=== PATIENT | female | born 1945 | race Caucasian/White ===

== ENCOUNTER → 2018-05-13 07:24 | Outpatient (CLI) | payer MEDICARE, BC, SELFPAY ==
[2018-05-13 08:55] LABS: Alanine Aminotransferase 23 IU/L (9-52); Albumin 4.4 g/dL (3.5-5.0); Albumin Globulin Ratio 1.5 (1.0-2.8); Alkaline Phosphatase 63 U/L (38-126); Aspartate Aminotransferase 21 IU/L (14-36); BUN Creatinine Ratio 33.3 (6-22); Bilirubin Total 0.6 mg/dL (0.2-1.3); Blood Urea Nitrogen 40 mg/dL (7-17); Carbon Dioxide 26 mmol/L (22-32); Chloride 102 mmol/L (98-107); Cholesterol 229 mg/dL (140-199); Estimated Glomerular Filt Rate 44.3 mL/min (>60); Globulin 2.9 g/dL (1.7-4.1); Glucose 101 mg/dL (80-110); HDL Cholesterol 41 mg/dL (40-60); HEMOLYSIS < 15 (0-50); LDL Cholesterol Calculated 123 mg/dL (<100); Potassium 4.7 mmol/L (3.4-5.1); Sodium 141 mmol/L (137-145); Total Protein 7.3 g/dL (6.3-8.2); Triglycerides 325 mg/dL (35-150)
[2018-05-13 08:58] LABS: Hemoglobin A1C% w Est Avg Glu 5.8 % (4.0-6.0)
== END ==
PROVIDERS: PCP Family Medicine; Visit Provider Family Medicine
DX: I10 Essential (primary) hypertension (principal); R73.03 Prediabetes; E66.9 Obesity, unspecified; E78.2 Mixed hyperlipidemia
CPT/HCPCS: 36415; 80053; 80061; 83036

== ENCOUNTER → 2018-06-22 13:31 | Outpatient (CLI) | payer MEDICARE, BC, SELFPAY ==
[2018-06-22 14:36] LABS: BUN Creatinine Ratio 30.9 (6-22); Blood Urea Nitrogen 34 mg/dL (7-17); Calcium 9.8 mg/dL (8.4-10.2); Carbon Dioxide 29 mmol/L (22-32); Chloride 103 mmol/L (98-107); Glucose 108 mg/dL (80-110); HEMOLYSIS < 15 (0-50); Sodium 142 mmol/L (137-145)
[2018-06-22 15:06] LABS: TSH w/ Reflex to FT4 0.25 uIU/mL (0.47-4.68)
[2018-06-22 15:58] LABS: Free T4, Direct Thyroxine 1.36 ng/dL (0.78-2.19)
== END ==
PROVIDERS: PCP Family Medicine; Visit Provider Family Medicine
DX: E03.9 Hypothyroidism, unspecified (principal); I10 Essential (primary) hypertension; N18.9 Chronic kidney disease, unspecified
CPT/HCPCS: 36415; 80048; 84439; 84443

== ENCOUNTER 2018-06-24 10:27 | Emergency (ER) | payer MEDICARE, BC, SELFPAY ==
[2018-06-24 10:25] VITALS: BP 153/81; PULSE 76; RESP 16; TEMP 36.8; O2SAT 97
--- NOTE | 2018-06-24 10:34 | ED.SYNCOPE ---
HPI - Syncope General Chief Complaint: Fall Stated Complaint: GLF Time Seen by Provider: 06/24/18 10:29 Source: patient Mode of arrival: EMS Limitations: no limitations History of Present Illness HPI narrative: Patient is a 73-year-old female brought in by EMS after having an episode this morning where she states she was standing at her kitchen sink preparing breakfast. She states she had a sudden onset of lightheadedness. No vertigo component. Denies any other symptoms that time to include chest pain, palpitations, shortness of breath, headache or vision changes. No numbness and tingling in her extremities. She states she has had symptoms similar to this in the past. When the event happened this morning she states that she tried to hold onto things to get over to sit down in a chair which she normally does. She states that when these episodes have happened in the past after she sits down the resolve within a couple minutes with. She states that this morning was different because as she was trying to get into the chair she did fall and hit the left side of her face. Did not have any loss of consciousness. When EMS arrived she states that when she was still she did not have any symptoms however when they tried to stand her she did have the lightheadedness return. She states in character this feels just like her prior episodes however she has never fallen in the past and she feels like the symptoms have lasted longer. Related Data Home Medications Medication Instructions Recorded Confirmed aspirin 81 mg PO Q OTHER DAY 06/24/18 06/24/18 hydrocodone-acetaminophen 1 tab PO TID 06/24/18 06/24/18 ibuprofen 600 mg PO Q6H PRN 06/24/18 06/24/18 levothyroxine [Synthroid] 1 tab PO DAILY 06/24/18 06/24/18 Previous Rx's Medication Instructions Recorded doxycycline hyclate 50 mg PO QDAY #90 cap 05/18/17 atenolol 50 mg PO QDAY #90 tab 07/27/17 lisinopril-hydrochlorothiazide 2 tab PO QDAY #180 tab 07/27/17 potassium chloride [Klor-Con 8] 8 meq PO BIDCC #180 tab 07/27/17 estradiol-norethindrone acet 1 tab PO Q DAY #90 tab 10/20/17 [Activella] clobetasol [Temovate] 1 charles TOPICAL HS #30 gm 11/17/17 amlodipine 5 mg tablet 5 mg PO QDAY #90 tab 04/26/18 tramadol 50 mg tablet 100 mg PO Q6HP PRN #720 tab 05/20/18 Allergies Allergy/AdvReac Type Severity Reaction Status Date / Time Iodine and Iodide Containing Allergy Severe ANAPHYLAXIS Unverified 05/20/18 14:28 Produc [IODINE AND IODIDE CONTAINING PRODUC] adhesive [ADHESIVE] Allergy Mild LOCAL RASH Unverified 05/20/18 14:28 enalapril [ENALAPRIL] Allergy Mild WHOLE BODY Unverified 05/20/18 14:28 EDEMA Review of Systems Constitutional Denies fatigue, Denies fever(s), Denies frequent falls, Denies headache(s) and Denies malaise Eyes Denies blurry vision, Denies diplopia and Denies loss of vision ENT Ears, Nose, Mouth, and Throat: Denies vertigo, Reports dizziness, Reports facial pain (Left cheek), Denies headache(s), Denies epistaxis, Denies mouth lesions, Denies mouth pain, Denies nasal trauma, Denies neck pain, Reports disequilibrium and Denies throat swelling Cardiovascular Denies chest pain, Denies syncope, Denies rapid heart rate, Denies pedal edema, Denies edema, Denies irregular heart rhythm, Denies palpitations and Denies dyspnea Respiratory Denies cough, Denies dyspnea and Denies wheezing Gastrointestinal Gastrointestinal: Denies abdominal pain, Denies constipation, Denies diarrhea, Denies nausea and Denies vomiting Genitourinary Denies dysuria Musculoskeletal Denies neck pain, Denies numbness and Denies tingling Comments: Left knee and left hip pain Integumentary/Breasts Denies lesions and Denies rash Neurologic Denies abnormal speech, Denies behavioral changes, Denies burning sensations, Denies confusion, Denies vertigo, Reports dizziness, Denies syncope, Denies frequent falls, Denies headache(s), Denies focal weakness, Denies loss of vision, Denies memory loss, Denies numbness, Denies convulsions, Denies seizure-like activity, Denies tingling, Denies paresthesias and Reports disequilibrium Psychiatric Denies behavioral changes, Denies confusion and Denies memory loss Endocrine Denies fatigue and Denies palpitations Hematologic/Lymphatic Denies easy bleeding and Denies easy bruising Allergic/Immunologic Denies throat swelling and Denies wheezing COUNTS INCLUDE 234 BEDS AT THE [facility] Medical History Arthritis (Chronic) Cataract (Chronic) GERD (gastroesophageal reflux disease) (Chronic) Hemorrhoids (Chronic 2014) Hyperlipidemia (Chronic) Hypertension (Chronic 1989) Hypothyroidism (Chronic 2012) Osteoarthritis (Chronic) Prediabetes (Chronic) Rosacea (Chronic 2000) Chicken pox (Resolved) History of nephrolithiasis (Resolved) Measles (Resolved) Mumps (Resolved) Ovarian cyst, bilateral (Resolved 12/2013) Surgical History Anesthesia (Resolved) History of bilateral salpingo-oophorectomy (BSO) (Resolved 2013) History of hip replacement (Resolved 2013) History of knee replacement (Resolved 2011) Status post dilation and curettage (Resolved 1983) Status post ovarian cystectomy (Resolved 1967) Family History Father Diabetes mellitus Heart disease Grandfather Stroke Mother Cancer Stroke Colon cancer Sister Age: 59 Congenital heart disease Brother Prostate cancer Daughter SUKH positive Daughter Taqueria's thyroiditis Grandmother No problems noted. Grandmother No problems noted. Son Schizophrenia Social History Smoking Status: Never smoker Exam Initial Vital Signs Initial Vital Signs: Vital Signs Temperature 98.3 F 06/24/18 10:25 Pulse Rate 76 06/24/18 10:25 Respiratory Rate 16 06/24/18 10:25 Blood Pressure 153/81 H 06/24/18 10:25 Pulse Oximetry 97 06/24/18 10:25 Const General: cooperative, healthy appearing, comfortable, well developed, well groomed and No acute distress Orientation: alert, awake and oriented x3 HENMT Head: normal to inspection, normocephalic and atraumatic Nose: external nose normal Face and sinus: normal facial exam, sinuses tender, face symmetric, no abrasions, no crepitus, no erythema and no edema Mouth: oral mucosae normal and lip normal Teeth and gingiva: dentition normal Resp Effort & Inspection: normal respiratory effort and able to speak in complete sentences Auscultation: clear to auscultation bilaterally Cardio Rate: regular rate Rhythm: regular rhythm Heart Sounds: no murmurs Pulses: radial pulses present GI Inspection: normal to inspection, abdominal wall ecchymosis and non-distended Palpation: No soft and No tender Skin Lesions: no lesions Rashes: no rashes Neuro General: alert, awake and oriented x3 Cranial Nerves: CN's II-XI intact bilaterally Cognition: normal cognition Speech: speech normal Motor: muscle tone normal throughout Sensory Exam: no sensory deficits noted Extrem Other: Full range of motion of left hip which is baseline for her. Full range of motion at baseline of her left knee. No other extremity findings Psych Appearance: grossly normal and well kempt Course Orders Ordered: ED Orders 06/24/18 10:15 Complete Blood Count AUTO DIFF Stat Comprehensive Metabolic Panel Stat Thyroid Stimulating Hormone Stat Troponin I Stat 06/24/18 10:31 EKG-12 Lead Stat 06/24/18 10:52 Partial Thromboplastin Time Stat Prothrombin Time INR Stat Discontinued Medications Sodium Chloride (Normal Saline 0.9%) 1,000 mls @ 1,000 mls/hr IV BOLUS ONE Stop: 06/24/18 11:28 Last Admin: 06/24/18 10:53 Dose: 1,000 mls/hr Vital Signs - 8 hr 06/24/18 10:25 Temperature 98.3 F Pulse Rate 76 Respiratory Rate 16 Blood Pressure 153/81 H Pulse Oximetry 97 MDM - Syncope Lab Data Attestation: I reviewed the patient's lab results. Result diagrams: 06/24/18 10:15 06/24/18 10:15 Lab Results 06/24/18 06/24/18 06/24/18 Range/Units 10:15 10:15 10:15 WBC 5.2 (4.5-11.0) X10^3/uL RBC 4.46 (4.0-5.2) X10^6/uL Hgb 13.9 (12.0-16.0) g/dL Hct 41.0 (36-46) % MCV 92.0 (80-100) fL MCH 31.1 (26-34) PG MCHC 33.8 (30-36) % RDW 13.7 (11.6-14.8) % Plt Count 270 (150-400) X10^3/uL Neut % (Auto) 46.1 L (50-75) % Lymph % (Auto) 38.2 (25-40) % Milam % (Auto) 9.3 (3-14) % Eos % (Auto) 5.4 H (2-4) % Baso % (Auto) 1.0 (0-2) % Neut # (Auto) 2400 L (4631-5672) /uL PT (10.1-12.7) SECONDS INR (0.9-1.3) APTT (26.4-36.2) SECONDS Sodium 142 (137-145) mmol/L Potassium 4.0 (3.4-5.1) mmol/L Chloride 103 (98-107) mmol/L Carbon Dioxide 23 (22-32) mmol/L BUN 31 H (7-17) mg/dL Creatinine 0.90 (0.52-1.04) mg/dL Estimated GFR > 60.0 (>60) mL/min BUN/Creatinine Ratio 34.4 H (6-22) Glucose 159 H (80-110) mg/dL Calcium 9.5 (8.4-10.2) mg/dL Total Bilirubin 0.8 (0.2-1.3) mg/dL AST 32 (14-36) IU/L ALT 25 (9-52) IU/L Alkaline Phosphatase 71 (38-126) U/L Troponin I < 0.012 (0.01-0.034) ng/mL Total Protein 7.9 (6.3-8.2) g/dL Albumin 4.7 (3.5-5.0) g/dL Globulin 3.2 (1.7-4.1) g/dL Albumin/Globulin Ratio 1.5 (1.0-2.8) TSH 2.68 (0.47-4.68) uIU/mL 06/24/18 Range/Units 10:52 WBC (4.5-11.0) X10^3/uL RBC (4.0-5.2) X10^6/uL Hgb (12.0-16.0) g/dL Hct (36-46) % MCV (80-100) fL MCH (26-34) PG MCHC (30-36) % RDW (11.6-14.8) % Plt Count (150-400) X10^3/uL Neut % (Auto) (50-75) % Lymph % (Auto) (25-40) % Milam % (Auto) (3-14) % Eos % (Auto) (2-4) % Baso % (Auto) (0-2) % Neut # (Auto) (8264-1469) /uL PT 10.6 (10.1-12.7) SECONDS INR 1.0 (0.9-1.3) APTT 24 L (26.4-36.2) SECONDS Sodium (137-145) mmol/L Potassium (3.4-5.1) mmol/L Chloride (98-107) mmol/L Carbon Dioxide (22-32) mmol/L BUN (7-17) mg/dL Creatinine (0.52-1.04) mg/dL Estimated GFR (>60) mL/min BUN/Creatinine Ratio (6-22) Glucose (80-110) mg/dL Calcium (8.4-10.2) mg/dL Total Bilirubin (0.2-1.3) mg/dL AST (14-36) IU/L ALT (9-52) IU/L Alkaline Phosphatase (38-126) U/L Troponin I (0.01-0.034) ng/mL Total Protein (6.3-8.2) g/dL Albumin (3.5-5.0) g/dL Globulin (1.7-4.1) g/dL Albumin/Globulin Ratio (1.0-2.8) TSH (0.47-4.68) uIU/mL ECG Data Attestation: I personally reviewed and interpreted this ECG as follows: Prior ECG tracings: not available for review Interpretation: Sinus rhythm Ventricular rate is 67 Normal axis Normal intervals Normal QRS No ST T wave changes Normal QTC MDM Narrative Medical decision making narrative: Patient's labs today are unremarkable. She was able to ambulate to the restroom here in the ER without assistance. She states she feels much better than when she did this morning. She states she has had these symptoms off and on for the past 2 years. Her history and physical exam was not consistent with a CVA or TIA. Have low suspicion for facial bone fracture or left hip her left knee fracture. Will hold on x-rays for now. Patient has had an MRI within the past year for another issue which she states was unremarkable. She has had a Holter monitor in the past but this was 10 years ago prior to the onset of the symptoms 1-2 years ago. I do have some suspicion for potential cardiac etiology however other etiologies such as vasovagal is also possibility. She states that normally in the morning when she gets up she sits for 30 min prior to doing anything however this morning she only sat for approximately 10 min when she went into the kitchen and had the symptoms. She states that she sits for 30 min to give her ?medicines a chance to work ?feel that further workup here in the emergency department will not change any disposition. Considered admitting her to the hospital secondary to the lack of definitive etiology however patient does not want to be admitted and I do not feel that this is 100% necessary currently. She was instructed to contact her primary doctor's office on Wednesday for follow-up. She was given return precautions. She expressed understanding and agreement plan. Discharge Plan Departure Patient Disposition: Home Clinical Impression: Lightheadedness Instructions: How to Prevent Falls Activity Restrictions/Additional Instructions: No definitive etiology of your symptoms was found today. Highly recommend that you contact your primary doctor's office on Wednesday for a follow-up and to discuss further workup to include possible MRI or Holter monitor. Continue all of your medications as directed. Return to the emergency department for any new or worsening symptoms Prescriptions: No Action doxycycline hyclate 50 MG capsule 50 mg PO QDAY Qty: 90 RF: 3 lisinopril-hydrochlorothiazide 20 MG/12.5 MG tablet 2 tab PO QDAY Qty: 180 RF: 3 potassium chloride [Klor-Con 8] 8 MEQ tablet extended release 8 meq PO BIDCC Qty: 180 RF: 3 atenolol 50 MG tablet 50 mg PO QDAY Qty: 90 RF: 3 estradiol-norethindrone acet [Activella] 0.5 MG/0.1 MG tablet 1 tab PO Q DAY Qty: 90 RF: 3 clobetasol [Temovate] 0.05 % cream 1 charles Topical HS Qty: 30 RF: 0 amlodipine [Norvasc] 5 mg tablet 5 mg PO QDAY Qty: 90 RF: 3 tramadol 50 mg tablet 100 mg PO Q6HP PRN (Reason: pain) Qty: 720 RF: 3 aspirin 81 mg Tablet,Delayed Release (Dr/Ec) 81 mg PO Q OTHER DAY RF: 0 levothyroxine [Synthroid] 88 mcg tablet 1 tab PO DAILY RF: 0 hydrocodone-acetaminophen 5-325 mg Tablet 1 tab PO TID RF: 0 ibuprofen 600 mg Tablet 600 mg PO Q6H PRN (Reason: Pain, Moderate) RF: 0
[2018-06-24 10:38] LABS: Add Manual Diff / Slide Review NO; Eosinophils Percent Auto 5.4 % (2-4); Hemoglobin 13.9 g/dL (12.0-16.0); Lymphocytes Percent Auto 38.2 % (25-40); Mean Corpuscular HGB Conc 33.8 % (30-36); Mean Corpuscular Hemoglobin 31.1 PG (26-34); Monocytes Percent Auto 9.3 % (3-14); Neutrophils Absolute Auto 2400 /uL (3000-5900); Neutrophils Percent Auto 46.1 % (50-75); Platelet Count 270 X10^3/uL (150-400); Red Blood Cell Count 4.46 X10^6/uL (4.0-5.2); Red Cell Distribution Width 13.7 % (11.6-14.8); White Blood Cell Count 5.2 X10^3/uL (4.5-11.0)
[2018-06-24 10:51] LABS: Alanine Aminotransferase 25 IU/L (9-52); Albumin 4.7 g/dL (3.5-5.0); Albumin Globulin Ratio 1.5 (1.0-2.8); Alkaline Phosphatase 71 U/L (38-126); Aspartate Aminotransferase 32 IU/L (14-36); BUN Creatinine Ratio 34.4 (6-22); Bilirubin Total 0.8 mg/dL (0.2-1.3); Blood Urea Nitrogen 31 mg/dL (7-17); Calcium 9.5 mg/dL (8.4-10.2); Carbon Dioxide 23 mmol/L (22-32); Chloride 103 mmol/L (98-107); Estimated Glomerular Filt Rate > 60.0 mL/min (>60); Globulin 3.2 g/dL (1.7-4.1); Glucose 159 mg/dL (80-110); HEMOLYSIS 42 (0-50); Sodium 142 mmol/L (137-145); Total Protein 7.9 g/dL (6.3-8.2)
[2018-06-24] MEDS: SODIUM CHLORIDE 0.9% 1,000 ML 1000 ML IV (10:53)
[2018-06-24 11:05] LABS: Troponin I < 0.012 ng/mL (0.01-0.034)
[2018-06-24 11:06] LABS: Prothrombin Time 10.6 SECONDS (10.1-12.7)
[2018-06-24 11:09] LABS: PTT Partial Thromboplastin Tim 24 SECONDS (26.4-36.2)
[2018-06-24 11:28] LABS: Thyroid Stimulating Hormone 2.68 uIU/mL (0.47-4.68)
[2018-06-24 12:57] VITALS: BP 141/81; PULSE 75; RESP 18; O2SAT 96
== END 2018-06-24 12:54 | disposition home or self-care (01) ==
PROVIDERS: Emergency Provider Emergency Medicine; Family Provider Family Medicine; PCP Family Medicine
DX: R55 Syncope and collapse (principal); W19.XXXA Unspecified fall, initial encounter
CPT/HCPCS: 36415; 80053; 84443; 84484; 85025; 85610; 85730; 93005; 93010; 99283; 99284

== ENCOUNTER → 2018-08-04 11:33 | Outpatient (CLI) | payer MEDICARE, BC, SELFPAY | PROVIDERS: Family Provider Family Medicine; PCP Family Medicine; Visit Provider Family Medicine | DX: R20.2 Paresthesia of skin (principal) | CPT/HCPCS: 95886; 95908 ==

== ENCOUNTER → 2018-08-11 15:49 | Outpatient (CLI) | payer MEDICARE, BC, SELFPAY ==
[2018-08-11 17:18] LABS: Blood Urea Nitrogen 41 mg/dL (7-17); Calcium 9.7 mg/dL (8.4-10.2); Carbon Dioxide 28 mmol/L (22-32); Chloride 103 mmol/L (98-107); Estimated Glomerular Filt Rate 54.7 mL/min (>60); Glucose 135 mg/dL (80-110); HEMOLYSIS < 15 (0-50); Potassium 4.9 mmol/L (3.4-5.1); Sodium 143 mmol/L (137-145)
== END ==
PROVIDERS: Family Provider Family Medicine; PCP Family Medicine; Visit Provider Family Medicine
DX: I10 Essential (primary) hypertension (principal)
CPT/HCPCS: 36415; 80048

== ENCOUNTER → 2018-10-04 11:05 | Outpatient (CLI) | payer MEDICARE, BC, SELFPAY ==
[2018-10-04 13:03] LABS: Blood Urea Nitrogen 29 mg/dL (7-17); Calcium 9.6 mg/dL (8.4-10.2); Carbon Dioxide 24 mmol/L (22-32); Chloride 102 mmol/L (98-107); Estimated Glomerular Filt Rate 54.7 mL/min (>60); Glucose 119 mg/dL (80-110); HEMOLYSIS < 15 (0-50); Potassium 4.6 mmol/L (3.4-5.1); Sodium 142 mmol/L (137-145)
[2018-10-04 13:52] LABS: Vitamin B12 665 pg/mL (239-931)
[2018-10-05 13:45] LABS: Homocysteine 9.2 umol/L (< 10.4)
[2018-10-08 15:19] LABS: Methylmalonic Acid 217 nmol/L (87-318)
== END ==
PROVIDERS: Family Provider Family Medicine; PCP Family Medicine; Visit Provider Family Medicine
DX: E66.9 Obesity, unspecified (principal); M54.5 Low back pain; R20.2 Paresthesia of skin; N18.9 Chronic kidney disease, unspecified
CPT/HCPCS: 36415; 80048; 82607; 83090; 83921

== ENCOUNTER → 2018-11-01 14:10 | Outpatient (CLI) | payer MEDICARE, BC, SELFPAY ==
[2018-11-01 16:01] LABS: Blood Urea Nitrogen 40 mg/dL (7-17); Calcium 9.6 mg/dL (8.4-10.2); Carbon Dioxide 28 mmol/L (22-32); Chloride 101 mmol/L (98-107); Estimated Glomerular Filt Rate 54.7 mL/min (>60); Glucose 90 mg/dL (80-110); HEMOLYSIS 19 (0-50); Potassium 4.7 mmol/L (3.4-5.1); Sodium 140 mmol/L (137-145)
== END ==
PROVIDERS: Family Provider Family Medicine; PCP Family Medicine; Visit Provider Family Medicine
DX: I10 Essential (primary) hypertension (principal)
CPT/HCPCS: 36415; 80048

== ENCOUNTER → 2018-12-06 15:00 | Outpatient (CLI) | payer MEDICARE, BC, SELFPAY ==
[2018-12-06 15:33] LABS: Blood Urea Nitrogen 36 mg/dL (7-17); Carbon Dioxide 26 mmol/L (22-32); Chloride 101 mmol/L (98-107); Estimated Glomerular Filt Rate 54.7 mL/min (>60); Glucose 93 mg/dL (80-110); HEMOLYSIS < 15 (0-50); Potassium 4.8 mmol/L (3.4-5.1); Sodium 140 mmol/L (137-145)
[2018-12-06 15:46] LABS: Add Manual Diff / Slide Review NO; Basophils Absolute Auto 0 /uL (0-100); Basophils Percent Auto 0.6 % (0-2); Eosinophils Absolute Auto 300 /uL (0-450); Eosinophils Percent Auto 5.6 % (2-4); Hematocrit 41.4 % (36-46); Hemoglobin 13.6 g/dL (12.0-16.0); Lymphocytes Absolute Auto 1700 /uL (1100-4500); Lymphocytes Percent Auto 29.6 % (25-40); Mean Corpuscular HGB Conc 32.9 % (30-36); Mean Corpuscular Hemoglobin 30.7 PG (26-34); Mean Corpuscular Volume 93.3 fL (80-100); Monocytes Absolute Auto 500 /uL (0-900); Monocytes Percent Auto 9.4 % (3-14); Neutrophils Absolute Auto 3100 /uL (1500-7000); Neutrophils Percent Auto 54.8 % (50-75); Platelet Count 295 X10^3/uL (150-400); Red Blood Cell Count 4.44 X10^6/uL (4.0-5.2); Red Cell Distribution Width 14.4 % (11.6-14.8); White Blood Cell Count 5.6 X10^3/uL (4.5-11.0)
== END ==
PROVIDERS: Family Provider Orthopaedic Surgery; PCP Family Medicine; Visit Provider Family Medicine
DX: M16.10 Unilateral primary osteoarthritis, unspecified hip (principal); Z01.818 Encounter for other preprocedural examination; Z01.812 Encounter for preprocedural laboratory examination; N20.0 Calculus of kidney; I10 Essential (primary) hypertension; R73.03 Prediabetes
CPT/HCPCS: 36415; 80048; 85025; 93005

== ENCOUNTER → 2019-01-28 10:32 | Outpatient (CLI) | payer MEDICARE, BC, SELFPAY ==
--- NOTE | 2019-01-28 | DI.MG.S_ITS ---
BILATERAL DIGITAL SCREENING MAMMOGRAM 3D/2D WITH CAD: 01/28/2019 CLINICAL: Routine screening. Comparison is made to exams dated: 01/27/2018 mammogram, 12/21/2016 mammogram, and 12/20/2015 mammogram - Merged [facility]. The tissue of both breasts is heterogeneously dense. This may lower the sensitivity of mammography. Current study was also evaluated with a Computer Aided Detection (CAD) system. There are benign calcifications in both breasts. No significant masses, calcifications, or other findings are seen in either breast. There has been no significant interval change. IMPRESSION: There is no mammographic evidence of malignancy. A 1 year screening mammogram is recommended. This exam was interpreted at Station ID: [id number]. NOTE: For mammograms, a report in lay terms will be sent to the patient. Approximately 15% of breast malignancies will not be visualized mammographically. In the management of a palpable breast mass, a negative mammogram must not discourage biopsy of a clinically suspicious lesion. Electronically Signed By: Bill torres/cesar:01/30/2019 08:48:21 copy to: CITLALY BUTLER letter sent: Normal Exam ACR BI-RADS Category 2: Benign Finding(s) 3342F
== END ==
PROVIDERS: Family Provider Orthopaedic Surgery; PCP Family Medicine; Visit Provider Family Medicine
DX: Z12.31 Encounter for screening mammogram for malignant neoplasm of breast (principal)
CPT/HCPCS: 77063; 77067

== ENCOUNTER 2019-01-30 09:51 | Inpatient (IN) | payer MEDICARE, BC, SELFPAY ==
[2019-01-18 13:59] VITALS: BMI 35.6
[2019-01-30] VITALS (13 sets, daily range): BP systolic 105–148; BP diastolic 54–90; PULSE 54–84; RESP 10–20; TEMP 36.4–37.2; O2SAT 93–100; BMI 34.9
--- NOTE | 2019-01-30 06:00 | DI.RAD.S_ITS ---
PROCEDURE: XR PELVIS 1-2V INDICATIONS: POST OPERATIVE TOTAL RIGHT HIP TECHNIQUE: 1 view of the lower pelvis acquired. COMPARISON: [facility] [place], CR, XR PELVIS WITH LATERAL HIP RIGHT, 10/26/2018, 13:51. FINDINGS: Bones: Patient is status post right hip arthroplasty, with hardware components in expected positions. The hip joint appears congruent. The visualized bony structures appear intact. Prominent degenerative changes of the pubis symphysis are present. Postoperative changes of the left hip are compatible with prior left hip arthroplasty. Soft tissues: Overlying postoperative changes are noted. No suspicious soft tissue densities. There is a soft tissue air and edema are present overlying the right hip region. No unexpected radiopaque foreign bodies are appreciated. Skin donna are seen overlying the lateral margin of the right hip region. IMPRESSION: Expected post surgical changes related to a right hip arthroplasty. Dictated by: Eric Cox M.D. on 01/30/2019 at 13:23 Approved by: Eric Cox M.D. on 01/30/2019 at 13:24
[2019-01-30] MEDS: LACTATED RINGERS 1,000 ML 42 ML IV ×2 (10:20→13:14)
[2019-01-30] MEDS: ACETAMINOPHEN 325 MG TABLET 975 MG PO (10:38)
[2019-01-30] MEDS: PREGABALIN 75 MG CAPSULE PO (10:39)
[2019-01-30] MEDS: CELECOXIB 200 MG CAPSULE PO (10:39)
--- NOTE | 2019-01-30 11:40 | PM.PREOP ---
Pre-operative Note Interval Note History & Physical reviewed/Exam performed by Physician: Yes Changes to H&P: No
[2019-01-30] MEDS: CEFAZOLIN 2 GM/100 ML FROZ.PIGGY IV ×2 (12:10→19:07)
[2019-01-30] MEDS: TRANEXAMIC ACID 1,000 MG VIAL 2000 MG INJ ×2 (12:30→13:34)
--- NOTE | 2019-01-30 12:48 | SUR.OPER ---
Lateral on padded OR bed. Gel axillary roll. Arms secured on padded armboard with pillow supporting top arm. Padded hip positioner braces x4 - anterior and posterior chest and pelvis. Additional gel pad used anterior pelvis. Gel pad under bottom leg from knee to foot and secured with tape over sheet.
[2019-01-30] MEDS: MORPHINE 4 MG/ML INJ IM (12:57)
[2019-01-30] MEDS: KETOROLAC 30 MG/ML VIAL IM (12:57)
[2019-01-30] MEDS: ROPIVACAINE 0.5% PF 5 MG/ML 20ML AMP 10 ML INJ (13:00)
--- NOTE | 2019-01-30 13:54 | PM.OP.1 ---
Operative Date/Time/Diagnoses Date of procedure: 01/30/19 Time of procedure: 13:54 Pre-op diagnosis: Right hip degenerative joint disease Post-op diagnosis: same Procedure & Clinicians Procedure: Right total hip arthroplasty (CPT code 51832 with diver assistant) Same procedure as scheduled: Yes Indications: Patient is an 74-year-old female with severe right hip DJD. The patient has pain with activities and at rest, limited ambulation and activity tolerance, difficulties with ADLs, and failure of conservative treatment. We have discussed the nature of condition, treatment options, risks and benefits, and patient elects to proceed with total hip arthroplasty and gives informed consent. Surgeon: Kian Malcolm Hollow Ware Maker: Scotty Montenegro Anesthesia Type: General and Spinal Operative Notes Closure Type: primary Specimen(s): none sent Prosthetic devices, grafts, tissues, transplants, or devices: Acetabulum: Valadez and Nephew R3 acetabular component size 50 mm Femoral component: Valadez [employer] Nephew Anthology stem size 3 with standard offset Femoral head: 32 mm + 0 cobalt chrome Estimated Blood Loss (mL): 100 Blood products transfused: none Procedure in detail: After satisfaction induction of anesthetic, and administration of IV antibiotics, the patient was positioned in the lateral decubitus position with all bony prominences well padded and pelvic position secured using a hip dental laboratory manager positioning device. Right hip and lower extremity prepped and draped in the usual sterile fashion, 1st dose of intravenous tranexamic acid was administered, then a longitudinal incision was created centered over the greater trochanter and carried sharply through the skin and subcutaneous tissues down to the fascia chuck which was divided longitudinally and retracted with a Charnley retractor. External rotators visualize, cut, tagged, and retracted posteriorly, then the capsule was cut in a T-type fashion with the corners tagged and retracted. Hip was dislocated and femoral neck cut made according to preoperative templating. Acetabular retractors then placed, and the acetabular labrum and osteophytes were excised. The acetabulum was then sequentially reamed to 49 mm with an excellent circumferential ream and fit with the trial. The trial component was removed and a permanent size 50 mm Valadez and Nephew R3 acetabular component was selected, positioned, and impacted with satisfactory position and fixation achieved. Permanent liner was then inserted with the elevated lip directed posteriorly. Soft tissue then removed off the lateral femoral neck in the lateral neck was entered using a box osteotome. T-handled reamers placed down the canal followed by sequential broaching to 3 with the final broach left in place for trial reduction which demonstrated excellent leg length, range of motion, and stability characteristics with a 32 mm +0 trial ball. The trial and broach were removed, and a permanent size 3 Valadez and Nephew Anthology stem was selected and inserted with excellent position and fixation achieved. Another trial reduction yielded the above characteristics so the trial ball was exchanged for a permanent 32 mm +0 cobalt chrome ball. The hip was irrigated and reduced and excellent leg length range of motion and stability characteristics were achieved and maintained. Periarticular tissues were infiltrated with ropivacaine, morphine, and Toradol. The hip was copiously irrigated, and the capsule repaired with #2 Ethibond, and the piriformis was repaired back to the greater trochanter with the same. Fascia chuck closed with interrupted #1 Ethibond sutures, and the subcutaneous tissues were closed in 2 layers of 0 Vicryl and 2 0 Vicryl. Skin was closed with donna and sterile dressings applied. Second dose of tranexamic acid was administered intravenously, and the anesthetic was terminated. Complications: none Condition: stable Disposition: PACU Plan for aftercare: Patient will be admitted to the acute care strauss, and anticipate discharge on postop day 1 or 2 with follow-up in office in 10-14 days. Outpatient physical therapy will be arranged and patient will continue to observe posterior hip precautions. Patient will continue use of postoperative Lovenox for 10 days postop.
[2019-01-30] MEDS: HYDROMORPHONE 2 MG INJ 0.5 MG IV (13:57)
--- NOTE | 2019-01-30 13:57 | P.OP_ITS ---
Operative Date/Time/Diagnoses Date of procedure: 01/30/19 Time of procedure: 13:54 Pre-op diagnosis: Right hip degenerative joint disease Post-op diagnosis: same Procedure & Clinicians Procedure: Right total hip arthroplasty (CPT code 18618 with internal medicine physician assistant) Same procedure as scheduled: Yes Indications: Patient is an 74-year-old female with severe right hip DJD. The patient has pain with activities and at rest, limited ambulation and activity tolerance, difficulties with ADLs, and failure of conservative treatment. We have discussed the nature of condition, treatment options, risks and benefits, and patient elects to proceed with total hip arthroplasty and gives informed consent. Surgeon: Kian Malcolm Reinforced [employer] Placing Supervisor: Scotty Montenegro Anesthesia Type: General and Spinal Operative Notes Closure Type: primary Specimen(s): none sent Prosthetic devices, grafts, tissues, transplants, or devices: Acetabulum: Valadez and Nephew R3 acetabular component size 50 mm Femoral component: Valadez and Nephew Anthology stem size 3 with standard offset Femoral head: 32 mm + 0 cobalt chrome Estimated Blood Loss (mL): 100 Blood products transfused: none Procedure in detail: After satisfaction induction of anesthetic, and administration of IV antibiotics, the patient was positioned in the lateral decubitus position with all bony prominences well padded and pelvic position secured using a hip lathe setup operator positioning device. Right hip and lower extremity prepped and draped in the usual sterile fashion, 1st dose of intravenous tranexamic acid was administered, then a longitudinal incision was created centered over the greater trochanter and carried sharply through the skin and subcutaneous tissues down to the fascia chuck which was divided longitudinally and retracted with a Charnley retractor. External rotators visualize, cut, tagged, and retracted posteriorly, then the capsule was cut in a T-type fashion with the corners tagged and retracted. Hip was dislocated and femoral neck cut made according to preoperative templating. Acetabular retractors then placed, and the acetabular labrum and osteophytes were excised. The acetabulum was then sequentially reamed to 49 mm with an excellent circumferential ream and fit with the trial. The trial component was removed and a permanent size 50 mm Valadez and Nephew R3 acetabular component was selected, positioned, and impacted with satisfactory position and fixation achieved. Permanent liner was then inserted with the elevated lip directed posteriorly. Soft tissue then removed off the lateral femoral neck in the lateral neck was entered using a box osteotome. T- handled reamers placed down the canal followed by sequential broaching to 3 with the final broach left in place for trial reduction which demonstrated excellent leg length, range of motion, and stability characteristics with a 32 mm +0 trial ball. The trial and broach were removed, and a permanent size 3 Valadez and Nephew Anthology stem was selected and inserted with excellent position and fixation achieved. Another trial reduction yielded the above characteristics so the trial ball was exchanged for a permanent 32 mm +0 cobalt chrome ball. The hip was irrigated and reduced and excellent leg length range of motion and stability characteristics were achieved and maintained. Periarticular tissues were infiltrated with ropivacaine, morphine, and Toradol. The hip was copiously irrigated, and the capsule repaired with #2 Ethibond, and the piriformis was repaired back to the greater trochanter with the same. Fascia chuck closed with interrupted #1 Ethibond sutures, and the subcutaneous tissues were closed in 2 layers of 0 Vicryl and 2 0 Vicryl. Skin was closed with donna and sterile dressings applied. Second dose of tranexamic acid was administered intravenously, and the anesthetic was terminated. Complications: none Condition: stable Disposition: PACU Plan for aftercare: Patient will be admitted to the acute care strauss, and anticipate discharge on postop day 1 or 2 with follow-up in office in 10-14 days. Outpatient physical therapy will be arranged and patient will continue to observe posterior hip precautions. Patient will continue use of postoperative Lovenox for 10 days postop.
--- NOTE | 2019-01-30 14:21 | SUR.PHASEI ---
Report called to Yuniel
--- NOTE | 2019-01-30 14:41 | SUR.PHASEI ---
Pt transferred to the floor. VS stable. IV saline locked. RT hip drsg cdi. Spinal resolved to L5. Report to Belen. Belongings bag and cane with patient. Spouse placed lt ring finger ring.
[2019-01-30] MEDS: LACTATED RINGERS 1,000 ML 125 ML IV ×2 (15:03→23:57)
--- NOTE | 2019-01-30 15:03 | PC.NURSE ---
Received just before shift change, VSS, wiggling toes, dressing in place without bleeding. Oriented to room and call light. Given water and ice. Family at bedside. Denies pain.
--- NOTE | 2019-01-30 18:05 | PT.IIE ---
Current Diagnoses Unilateral primary osteoarthritis, right hip (01/30/19) Surgery Performed Operation Date: 01/30/19 11:30 Actual Procedures p Total Hip Arthroplasty(Right) - Kian Malcolm MD Surgical History (Last Updated 01/18/19 @ 14:06 by Kendra Garner RN) History of arthroplasty of left knee (Acute ~2011) History of total left hip arthroplasty (Acute ~2013) Hx of appendectomy (Acute) Hx of left inguinal hernia repair (Acute) Status post bilateral cataract extraction (Acute ~2012) Anesthesia (Resolved) History of bilateral salpingo-oophorectomy (BSO) (Resolved 2013) Status post dilation and curettage (Resolved 1983) Status post ovarian cystectomy (Resolved 1967) Medical History (Last Updated 01/18/19 @ 14:36 by Kendra Garner RN) Numbness (Acute) Arthritis (Chronic) Cataract (Chronic) GERD (gastroesophageal reflux disease) (Chronic) Hemorrhoids (Chronic 2014) Hyperlipidemia (Chronic) Hypertension (Chronic 1989) Hypothyroidism (Chronic 2012) Osteoarthritis (Chronic) Prediabetes (Chronic) Rosacea (Chronic 2000) Chicken pox (Resolved) History of nephrolithiasis (Resolved) Measles (Resolved) Mumps (Resolved) Ovarian cyst, bilateral (Resolved 12/2013) Physical Therapy Inpatient Evaluation/Re-Eval M1 PT/OT-IP Prior Functional Status Start: 01/30/19 17:39 Freq: NEEDED Status: Active Protocol: Document 01/30/19 16:15 HH (Rec: 01/30/19 18:00 [email or web address]) Medical Review Prior Functional Status Medical History Reviewed Yes Diet/Fluid Consistency Regular Communication No deficits noted. Able to make needs known. Mobility and Gait Pt an independent ambulator at home and community using a SPC at all times. She started to use a FWW since a month ago due to worsening R hip pain. She usually uses a shopping cart for support during grocery shopping. Activities of Daily Living and IADL's Pt was indepedent for ADLs and IADLs with a SPC/FWW prior to sx, her was able to assist for chores, cooking and grocery shopping. Pt does not drive at this point Social History Household Members spouse Living Arrangements House Number of Floors (Floors) One Floor Number of Stairs To Enter/Railing? 1 [place]AYLE[place] without railing. Home Environment Walk in Shower Home Equipment Front Wheel Walker Straight Cane Raised Toilet Seat w/Armrests Shower Seat with Backrest Grab Bars In Shower Employment Status Retired Additional Social History Comment Pt lives her in [facility]. They are for 52 years and her is still very active and independent who is able to assist pt if needed. Pt stated she has been taking Ibuprofen to manage her R hip pain for a long time but her PCP told her to reduce her dosage progressively because of her kidney condition. Pt c/o worsening R hip pain since then who needs to use SPC at all times for mobility and started to use FWW a month ago . Pt had L [place]THONY [place] [address] Alexsandra Malcolm. M2 PT-IP Current Condition Start: 01/30/19 17:39 Freq: NEEDED Status: Active Protocol: Document 01/30/19 16:15 HH (Rec: 01/30/19 18:00 [email or web address]) Physical Therapy Current Condition Current Condition Evaluation Date 01/30/19 Treatment Diagnosis R ANTHONY (post approach), impaired gait and activity tolerance. Onset Date 01/30/19 Precautions Posterior Hip Precautions No Hip Flexion > 90 degrees No Hip Internal Rotation No Hip Adduction Weight Bearing Status Weight Bearing Status Weight Bear as Tolerated M3 PT-IP Subjective Start: 01/30/19 17:39 Freq: NEEDED Status: Active Protocol: Document 01/30/19 16:15 HH (Rec: 01/30/19 18:00 [email or web address]) Subjective Physical Therapy Visit Type Type Initial Evaluation Visit Start Time 16:15 Visit Stop Time 16:55 Total Visit Minutes 40 Notes Pt's at bedside. Number of BOX PERSON Visits 0 Physical Therapy Visit Comments Patient Comments Pt agreeable to mobilize with PT. Able to do heel slide and ankle [place] upon assessment. Patient Goals To return home with and participate outpatient PT at [facility] in [facility]. Therapy Pain Assessment Pain When Pain Assessed During Mobility Pain Present Pain Present Pain Reported Location Right Hip Intensity 4 Scale Used Numeric (1 - 10) Description Acute Pain Management Techniques Apply Cold Modification of Treatment Re-positioning Timing of Activity with Medications M4 PT-IP Mobility and Gait Start: 01/30/19 17:39 Freq: NEEDED Status: Active Protocol: Document 01/30/19 16:15 HH (Rec: 01/30/19 18:00 [email or web address]) PT-Bed Mobility Assessment Supine to Sit Supine to Sit Minimal Assistance Head of Bed Elevated Bedrails Scooting Scooting to Edge of Bed Contact Guard Assistance PT-Transfer Assessment Sit to and From Stand Sit to and from Stand Contact Guard Assistance 1 Person Assistance Use of Upper Extremities Equipment Transfer Assistive Device Gait Belt Front Wheeled Walker Orthotic/Prosthetic Devices or Brace: No Transfers Transfer Destination Bed Chair Transfer Technique Stand Step Pivot Transfer Ability Level of Assist Contact Guard Assistance Minimal Assistance 1 Person Assistance Use of Upper Extremities Comments Mobility Comments BP maintains at 130s/70s HR 60s O2 Sat 100% Pt was in bed upon assessment. Pt performed bed mobility and trasnfer slowly and Required CGA to min A for supine to sit . She c/o slight lightheadedness at seated position but symptoms resolved after 5 minutes. Pt was able to perform R knee extension, ankle [place] at the EOB. She then stood up and transferred to bedside chair with FWW CGA/ min A. Pt c/o R hip slight weakness. Gait Assessment Comments Gait Comments did not attempt due to R hip weakness and pain. Stair Climbing Assessment Comments Stair Climbing Comments did not attempt due to R hip weakness and pain. PT-Balance Assessment Sitting Balance and Reactions Static Sitting Balance Ability Normal Dynamic Sitting Balance Ability Normal Standing Balance and Reactions Static Standing Balance Ability Good Dynamic Standing Balance Ability Fair Device Used FWW M5 PT-IP Objective Assessments Start: 01/30/19 17:39 Freq: NEEDED Status: Active Protocol: Document 01/30/19 16:15 (Rec: 01/30/19 18:00 [email or web address]) Orientation Orientation/Cognition Level of Alertness Alert Orientation Name Age Birthday Month Date Year Day of Week Place Situation Language Function Ability No Deficits Noted Safety Awareness Understands Safety Issues Memory Description No Deficits Noted Comments Pt is able to recall precautions 3/3 Gross Range of Motion Upper Extremity ROM Assessment Within Functional Limits Lower Extremity ROM Assessment Right Impaired Strength Upper Extremity Strength Assessment Within Functional Limits Lower Extremity Strength Assessment Right Impaired Comments Strength Comments RLE overall strength 3/5 Coordination Assessment Gross Coordination Gross Coordination WNL Assessment Finger to Nose Test Normal Performance Pronation/Supination Test Normal Performance Sensation Assessment Sensation Gross Sensation Right LE Impaired Light Touch Impaired Proprioception (Position) Impaired Sensation Description Numbness M6 PT-IP Treatment Start: 01/30/19 17:39 Freq: NEEDED Status: Active Protocol: Document 01/30/19 16:15 HH (Rec: 01/30/19 18:00 [email or web address]) Physical Therapy Treatment Exercises Exercises Ankle Pumps Gluteal Sets Quad Sets Heel Slides Education Education Provided Precautions Weight Bearing Status Post-Op Packet Safety M7 PT-IP Assessment and Plan Start: 01/30/19 17:39 Freq: NEEDED Status: Active Protocol: Document 01/30/19 16:15 (Rec: 01/30/19 18:00 [email or web address]) PT Summary Assessment and Plan Potential Rehabilitation Potential Excellent Status of Condition at Evaluation Evolving Summary Impairments Pain ROM Strength Balance Sensation Bed Mobility Transfers Gait Activity Tolerance Assessment Summary Pt is low complexity who is POD #1 for R ANTHONY (post approach) due to DJD. Pt's at bedside during session. Pt is able to recall all 3/3 precautions and understand her postop therex due to previous L ANTHONY. She required CGA/ min A for overall transfers and bed mobility but she did not amb at this point due to weakness at R hip and she will need 1pa from nursing staff for overall mobility. Will cont to assess pt's symptoms of weakness and her overall mobility. Pt is expected to d/ c home with her 's assistance and outpatient PT at [facility] once she is medically stable and reached her rehab goals. [ End ] Goals Bed Mobility Goal Standby Assistance Transfer Goal Standby Assistance Front Wheeled Walker Gait Goal Standby Assistance Front Wheel Walker Gait Distance 100 Other Goals climb 1 step without railing SBA Days to Meet Goals 5 Frequency of Treatment Frequency Of Treatment Twice a Day Treatment Plan Physical Therapy Treatment Plan Bed Mobility Training Transfer Training Gait Training Therapeutic Exercise Balance Retraining Post Op Education Discharge Planning Hot or Cold Pack Other Recommendations and Next Treatment review precautions Focus bed mob, transfer, gait training as soren climb 1 step without railing if possible. Recommendations To Nursing Amount of Assist Needed 1 Person Assist Discharge Recommendations PT Discharge Recommendations Home with Assistance Outpatient PT Other Discharge Recommendations Pt did not amb at this point due to weakness at R hip and she will need 1pa from nursing staff for overall mobility. Will cont to assess pt's symptoms of weakness and her overall mobility. Pt is expected to d/c home with her 's assistance and outpatient PT at [facility] once she is medically stable and reached her rehab goals.
[2019-01-30] MEDS: HYDROCODONE/ACET 5/325 TABLET 1 TAB PO ×2 (19:06→23:25)
[2019-01-30] MEDS: DOXYCYCLINE HYCLATE 100 MG TABLET 50 MG PO (20:31)
[2019-01-30] MEDS: hydrOXYzine pamoate 25 MG CAPSULE PO (20:32)
[2019-01-31] VITALS (8 sets, daily range): BP systolic 127–162; BP diastolic 69–95; PULSE 75–98; RESP 15–18; TEMP 35.7–37.6; O2SAT 96–99
[2019-01-31] MEDS: HYDROMORPHONE 2 MG TABLET PO ×4 (00:08→10:31)
[2019-01-31] MEDS: hydrOXYzine pamoate 25 MG CAPSULE PO ×3 (03:30→21:15)
[2019-01-31] MEDS: CEFAZOLIN 2 GM/100 ML FROZ.PIGGY IV (04:04)
--- NOTE | 2019-01-31 06:15 | PC.NURSE ---
Addendum entered by Merry Ramirez R.N. 01/31/19 06:54: Dr Malcolm returned call, new order for 10mg PO percolone 1 time now and 5mg PO percolone q2 hrs PRN. Original Note: Addendum entered by Merry Ramirez R.N. 01/31/19 06:46: Pt crying out loudly from her room, had medicated her per DEC at 0611 but pt reports pain has increasingly gotten worse throughout the night despite regular medication intervals. Paging Dr Malcolm who is her surgeon and on-call surgeon for increase in pain management. Original Note: Shift note: Pt has had ongoing pain issues on shift, have been medicating with 2mg PO Dilaudid Q3 hours with some relief. Pt is at times tearful c/o pain, attempted repositioning, ice and pt requested to sit in bedside chair. Pt reports that pain is on the top of her thigh versus incisional.
[2019-01-31] MEDS: OXYCODONE IR 5 MG TABLET 10 MG PO (07:06)
[2019-01-31 07:15] LABS: Hematocrit 35.7 % (36-46); Hemoglobin 11.7 g/dL (12.0-16.0)
--- NOTE | 2019-01-31 07:34 | PM.PNPO.1 ---
Subjective Date Patient Seen: 01/31/19 Time Patient Seen: 07:34 Interval history: Pain is severe. No nausea vomiting. No fever chills. Has been up using the restroom. Exam Vital Signs (past 8 hours): - 01/31/19 03:58 Temperature 99.7 F H Pulse Rate 92 H Respiratory Rate 18 Blood Pressure 162/70 H Pulse Oximetry 96 Oxygen Delivery Method Room Air Narrative Exam Narrative: 74-year-old female resting in bed appears uncomfortable. Right hip dressing is clean, dry and intact. Neurovascular status is intact to the right distal lower extremity. Objective Labs Result Diagrams: 01/31/19 06:47 Labs: Laboratory Results - last 24 hr 01/31/19 06:47 Hgb 11.7 L Hct 35.7 L Assessment & Plan Post-op Postoperative Procedures Operation Date: 01/30/19 11:30 Actual Procedures Side Surgeon p Total Hip Arthroplasty Right Kian Malcolm MD Work on pain control. Mobilize with physical therapy. Weightbearing as tolerated. Posterior precautions.
[2019-01-31] MEDS: OXYCODONE IR 5 MG TABLET PO ×2 (09:44→11:36)
[2019-01-31] MEDS: hydroCHLOROthiazide 25 MG TABLET PO (09:45)
[2019-01-31] MEDS: CALCIUM CARB/VIT D3 500/200 TABLET 1 EACH PO (09:46)
[2019-01-31] MEDS: AMLODIPINE 5 MG TABLET PO (09:46)
[2019-01-31] MEDS: ENOXAPARIN 40 MG/0.4 ML SYRINGE SUBCUT (09:47)
[2019-01-31] MEDS: ATENOLOL 50 MG TABLET PO (09:47)
[2019-01-31] MEDS: LISINOPRIL 20 MG TABLET 40 MG PO (09:48)
[2019-01-31] MEDS: LEVOTHYROXINE 88 MCG TABLET PO (09:48)
[2019-01-31] MEDS: POTASSIUM CHLORIDE 8 MEQ TABLET PO (09:48)
--- NOTE | 2019-01-31 11:15 | CM.DANOTE ---
DCP/Assessment: Reviewed chart. Patient is a 74yr old female admitted to [facility] for right ANTHONY performed on 01-30-[address] Malcolm. Primary Payor is 1)Medicare 2)[facility] Out of [facility]. PCP is Dr. Portillo. Met with patient and spouse/Edwar at bedside explained CM/SW role. Patient reports that she is currently in a lot of pain. Patient plans to discharge home when medically stable. Patient reports that she has all needed DME and outpatient therapy is arranged at [facility]. Initially, it was thought that patient might be able to discharge today. However, due to pain control patient prefers to stay and make sure that is under control prior to discharging. RN aware. Therapy continues to work with patient during hospitalization. P: Anticipate home when medically stable. CM team to continue to follow as needed. MELISSA Hugo Discharge Planning/Care Management CM Discharge Assessment Start: 01/31/19 11:12 Freq: Status: Active Protocol: Document 01/31/19 11:12 KJS (Rec: 01/31/19 11:15 KJS [id number]) Discharge Planning Assessment Assigned Layout Designer MELISSA Hugo Advance Directives? Yes: Unsure of whereabouts History Provided By Patient Medical Record Prior Living Arrangements House Household Members spouse Type of transporation used prior to Drives own vehicle admit Independent with ADL's Yes Is patient alert and oriented? Yes Caregiver for Another No DME Already Rented / Owned FWW / Walker Cane Patient/Family Preference OP PT Therapy Barriers to Discharge No Discharge Plan Home Transportation Arrangement Family to provide transportation home. Whiteboard Updated in Patient Room with Yes name and ext. # of Layout Designer Review Status In Process Next Review Type Continued Stay Review Pre-Anesthesia Assessment Start: 01/18/19 13:59 Freq: Status: Complete Protocol: Document 01/18/19 13:59 CAB (Rec: 01/18/19 14:35 CAB [id number]) Pre-Anesthesia Assessment Patient Information Reviewed Via Phone Assessment Assessment Completed With Patient Diagnostic Results BMP/CMP CBC EKG Comment Labs/ECG @ 12/06/18 Primary Care Provider Gina Portillo Seen Specialist in Last 12 Months Yes Specialist Seen Hyperbaric Nurse Orthopedist Primary Language Somali Senior Linux Systems Administrator Required No Height 157.48 cm Weight 88.451 kg Body Mass Index (BMI) 35.6 Hearing Ability Normal Visual Assist Magnifying Glass Dentition Type Teeth, Natural Present Teeth, Missing Barriers to Learning None Other Aids No Hx Anesthesia Reactions No Hx Family Anesthesia Reaction No Hx Malignant Hyperthermia No Hx Blood Transfusions No Anesthesia Review Requested No Internet Systems Administrator No alcohol intake never Smoking Status Never smoker Substance Use Type does not use Pain Present Pain Reported Musculoskeletal Symptoms Abnormal Gait Back Pain Difficulty Walking Joint Pain Muscle Weakness Neck Pain History of Falling (Recent or History of Yes ) Patient is completely paralyzed or No completely immobile Prosthesis or Orthotic Device Cane Front Wheel Walker Mental Status Oriented to own ability Is patient on oxygen? No Does patient have HUMPHREYS/SOB No Hx Sleep Apnea No Suspected Sleep Apnea Yes Currently Taking a Beta Tony Yes: Atenolol Can You Climb a Flight of Stairs Without Yes SOB Hx Chest Pain No Hx SOB No Hx Syncope or Dizziness No Anti-Coagulant Therapy No Has a Set Up And Lay Out Inspector No Cardiac Testing No Hx Pacemaker/ICD No Pacemaker Rep Required? No Cardiac Clearance Received Not Applicable Diet Type At Home Regular dysphagia No Bladder Pattern Nocturia Urinary Catheter Present No Hx Urinary Self Catheterization No Diabetes No: Pre-diabetes HgbA1C 5.8 Date 12/06/18 Patient No Lactating No Presence of External or Internal Medical Yes: Left hip hardware Devices Have you traveled outside the [facility] in the last 30 days? Marital Status Lives With spouse Prior Living Arrangements House Number of Floors (Floors) One Floor Support System Child/Children Spouse Does the Patient Have Assistance After Yes Surgery Patient Discharge Plan Description Return Home Comment Pt not advised on length of stay per surgeon's office Feels Safe in Current Environment Yes Been Physically Hurt or Threatened By a No Person in Current Environment Do you have thoughts of harming yourself None or others? Are you currently considering suicide? No Do you have a plan to hurt yourself or No Plan others? Do You Have Any Spiritual Beliefs That No May Affect Your HC Choices? Do You Have Any Cultural Practices That No May Affect Your HC Choices? Spiritual Referral None Comment Moravian Who Can We Speak to About Patient's Care Family, friends Identifying Code for Release of Patient Declines to issue Information Health Care Proxy/Next of Kin Edwar () Health Care Proxy or [phone] Emergency Contact Name Edwar () Emergency Contact or [phone] Advance Directives? Yes: Unsure of whereabouts Requested Patient Bring Advanced Yes Directives DOS PAC Instructions Durable medical equipment Medications to take/avoid Nasal antibiotic No ETOH/petroleum product on skin DOS NPO Pre-surgical wash Sensory aids Sturdy shoes/comfortable clothes Do not bring valuables and remove jewelry Stop Bang Assessment Do you snore loudly (louder than talking Yes or loud enough to be heard through closed doors) Do you often feel tired, fatigued or Yes sleepy during the daytime Has anyone ever observed you stop No breathing while sleeping? Do you have, or are you being treated Yes for, high blood pressure Is your BMI more than 35 kg/m2 Yes Age over 50 Yes Estimated neck circumference greater No than 40cm or 16in Gender male No Result Negative
--- NOTE | 2019-01-31 11:25 | PC.NURSE ---
Day shift Pt AOx3, bulky dressing on right hip CDI. +CSM, pt able to stand up pivot to [facility]. Has had problem with pain, reported pain was 8/10, medication given, feet elevated, icepacks applied with god relief. Pt given 10 mg oxycodone and rated pain 5/10. Pt resting comfortably in bed with at bedside. BP and HR elevated this morning and BP medications given. Will continue to monitor.
--- NOTE | 2019-01-31 11:35 | PT.IPTN ---
Current Diagnoses Unilateral primary osteoarthritis, right hip (01/30/19) Surgery Performed Operation Date: 01/30/19 11:30 Actual Procedures p Total Hip Arthroplasty(Right) - Kian Malcolm MD Physical Therapy Treatment Note M2 PT-IP Current Condition Start: 01/30/19 17:39 Freq: NEEDED Status: Active Protocol: Document 01/30/19 16:15 HH (Rec: 01/30/19 18:00 HH [email or web address]) Physical Therapy Current Condition Current Condition Evaluation Date 01/30/19 Treatment Diagnosis R ANTHONY (post approach), impaired gait and activity tolerance. Onset Date 01/30/19 Precautions Posterior Hip Precautions No Hip Flexion > 90 degrees No Hip Internal Rotation No Hip Adduction Weight Bearing Status Weight Bearing Status Weight Bear as Tolerated M3 PT-IP Subjective Start: 01/30/19 17:39 Freq: NEEDED Status: Active Protocol: Document 01/31/19 11:27 CLB (Rec: 01/31/19 11:35 CLB [id number]) Subjective Physical Therapy Visit Type Type Patient Refusal Notes Pt refused stating she was in too much pain. Informed RN.
[2019-01-31] MEDS: OXYCODONE IR 10 MG TABLET PO ×3 (13:44→21:12)
--- NOTE | 2019-01-31 17:27 | PT.IPTN ---
Current Diagnoses Unilateral primary osteoarthritis, right hip (01/30/19) Surgery Performed Operation Date: 01/30/19 11:30 Actual Procedures p Total Hip Arthroplasty(Right) - Kian Malcolm MD Physical Therapy Treatment Note M2 PT-IP Current Condition Start: 01/30/19 17:39 Freq: NEEDED Status: Active Protocol: Document 01/30/19 16:15 HH (Rec: 01/30/19 18:00 HH [email or web address]) Physical Therapy Current Condition Current Condition Evaluation Date 01/30/19 Treatment Diagnosis R ANTHONY (post approach), impaired gait and activity tolerance. Onset Date 01/30/19 Precautions Posterior Hip Precautions No Hip Flexion > 90 degrees No Hip Internal Rotation No Hip Adduction Weight Bearing Status Weight Bearing Status Weight Bear as Tolerated M3 PT-IP Subjective Start: 01/30/19 17:39 Freq: NEEDED Status: Active Protocol: Document 01/31/19 13:35 CLB (Rec: 01/31/19 17:27 CLB [id number]) Subjective Physical Therapy Visit Type Type Treatment Note Visit Start Time 13:35 Visit Stop Time 16:09 Total Visit Minutes 34 Number of QUALITY REVIEW SPECIALIST Visits 1 Physical Therapy Visit Comments Patient Comments Pt continues to report high pain but agreed to get up to chair. Therapy Pain Assessment Pain When Pain Assessed During Mobility Pain Present Pain Present Pain Reported Location Right Hip Intensity 8 Scale Used Numeric (1 - 10) Pain Management Techniques Apply Cold Modification of Treatment Re-positioning Timing of Activity with Medications M4 PT-IP Mobility and Gait Start: 01/30/19 17:39 Freq: NEEDED Status: Active Protocol: Document 01/31/19 13:35 CLB (Rec: 01/31/19 17:27 CLB [id number]) PT-Bed Mobility Assessment Supine to Sit Supine to Sit Moderate Assistance 1 Person Assistance Head of Bed Elevated Bedrails Scooting Scooting to Edge of Bed Moderate Assistance PT-Transfer Assessment Sit to and From Stand Sit to and from Stand Contact Guard Assistance Minimal Assistance 1 Person Assistance Use of Upper Extremities Equipment Transfer Assistive Device Gait Belt Front Wheeled Walker Orthotic/Prosthetic Devices or Brace: No Transfers Transfer Destination Chair Toilet Transfer Ability Level of Assist Moderate Assistance Use of Upper Extremities Comments Mobility Comments Pt reports high pain with mobility and requiring Mod A to EOB with cues for sequencing moves OOB. Gait Assessment Gait Gait Assistance Required: Contact Guard Assist 1 Person Assist Distance (Feet) 10 Assistive Devices Assistive Device Gait Belt Front Wheeled Walker Orthotic/Prosthetic Devices or Brace: No Gait Deviations General Gait Pattern Antalgic Decreased Stride Length Decreased Feet Clearance Step-to Gait Comments Gait Comments Pt ambulated to toilet in bathroom ~5ft then 5ft back to chair. Stair Climbing Assessment Comments Stair Climbing Comments did not attemp due to pain. M5 PT-IP Objective Assessments Start: 01/30/19 17:39 Freq: NEEDED Status: Active Protocol: Document 01/30/19 16:15 HH (Rec: 01/30/19 18:00 HH [email or web address]) Orientation Orientation/Cognition Level of Alertness Alert Orientation Name Age Birthday Month Date Year Day of Week Place Situation Language Function Ability No Deficits Noted Safety Awareness Understands Safety Issues Memory Description No Deficits Noted Comments Pt is able to recall precautions 3/3 Gross Range of Motion Upper Extremity ROM Assessment Within Functional Limits Lower Extremity ROM Assessment Right Impaired Strength Upper Extremity Strength Assessment Within Functional Limits Lower Extremity Strength Assessment Right Impaired Comments Strength Comments RLE overall strength 3/5 Coordination Assessment Gross Coordination Gross Coordination WNL Assessment Finger to Nose Test Normal Performance Pronation/Supination Test Normal Performance Sensation Assessment Sensation Gross Sensation Right LE Impaired Light Touch Impaired Proprioception (Position) Impaired Sensation Description Numbness M6 PT-IP Treatment Start: 01/30/19 17:39 Freq: NEEDED Status: Active Protocol: Document 01/31/19 13:35 CLB (Rec: 01/31/19 17:27 CLB [id number]) Physical Therapy Treatment Exercises Exercises Ankle Pumps Gluteal Sets Quad Sets Education Education Provided Precautions Weight Bearing Status Safety M7 PT-IP Assessment and Plan Start: 01/30/19 17:39 Freq: NEEDED Status: Active Protocol: Document 01/31/19 13:35 CLB (Rec: 01/31/19 17:27 CLB [id number]) PT Summary Assessment and Plan Summary Impairments Pain ROM Strength Balance Sensation Bed Mobility Transfers Gait Activity Tolerance Assessment Summary Pt c/o increased pain even with medication and has been able to only ambulate to BR. Pt required Mod A with bed mobility with use of draw sheet and cues for sequencing moves to EOB and for precaution reminders to prevent Hip flx. Pt needs CGA to stand and ambulation and requires Min A stand-sit to slow descent. Pt present for tx and is eager to assist. Pt will require CG training and stair training before d/c. Goals Bed Mobility Goal Standby Assistance Transfer Goal Standby Assistance Front Wheeled Walker Gait Goal Standby Assistance Front Wheel Walker Gait Distance 100 Other Goals climb 1 step without railing SBA Days to Meet Goals 5 Frequency of Treatment Frequency Of Treatment Twice a Day Treatment Plan Physical Therapy Treatment Plan Bed Mobility Training Transfer Training Gait Training Therapeutic Exercise Balance Retraining Post Op Education Discharge Planning Hot or Cold Pack Other Recommendations and Next Treatment review precautions Focus bed mob, transfer, gait training as soren climb 1 step without railing if possible. Recommendations To Nursing Amount of Assist Needed 1 Person Assist Discharge Recommendations PT Discharge Recommendations Home with Assistance Outpatient PT Other Discharge Recommendations Pt did not amb at this point due to weakness at R hip and she will need 1pa from nursing staff for overall mobility. Will cont to assess pt's symptoms of weakness and her overall mobility. Pt is expected to d/c home with her 's assistance and outpatient PT at [facility] once she is medically stable and reached her rehab goals.
[2019-01-31] MEDS: DOXYCYCLINE HYCLATE 100 MG TABLET 50 MG PO (21:13)
[2019-02-01] MEDS: OXYCODONE IR 10 MG TABLET PO ×5 (00:46→21:30)
[2019-02-01] MEDS: hydrOXYzine pamoate 25 MG CAPSULE PO ×2 (04:00→21:31)
[2019-02-01 04:10] VITALS: BP 130/75; PULSE 85; RESP 18; TEMP 37.4; O2SAT 98
[2019-02-01 08:00] VITALS: BP 127/62; PULSE 95; RESP 16; TEMP 37.1; O2SAT 97
[2019-02-01] MEDS: ENOXAPARIN 40 MG/0.4 ML SYRINGE SUBCUT (08:47)
[2019-02-01] MEDS: ATENOLOL 50 MG TABLET PO (08:48)
[2019-02-01] MEDS: AMLODIPINE 5 MG TABLET PO (08:48)
[2019-02-01] MEDS: hydroCHLOROthiazide 25 MG TABLET PO (08:49)
[2019-02-01] MEDS: LISINOPRIL 20 MG TABLET 40 MG PO (08:49)
[2019-02-01] MEDS: LEVOTHYROXINE 88 MCG TABLET PO (08:49)
[2019-02-01] MEDS: CALCIUM CARB/VIT D3 500/200 TABLET 1 EACH PO (08:50)
[2019-02-01] MEDS: POTASSIUM CHLORIDE 8 MEQ TABLET PO (08:50)
[2019-02-01] MEDS: ESTRADIOL NORETHINDRONE 1 EACH PO (09:00)
--- NOTE | 2019-02-01 10:05 | PC.NURSE ---
Addendum entered by Mahnaz Soto R.N. 02/01/19 14:42: PAIN - pt awakens easily, remained drowsy this afternoon, phys therapy in to mobilize, discussed pain mgt and given 5mg po oxycodone w/crackers. Original Note: AM NOTE - at shift report, pt req assist to bsc, w/wood mill supervisor, pt moving very slowly to dangle position, moaning and crying out with the mobilization, x2 person slowly up w/fww and few steps to bsc, pt has difficulty in lifting her feet off floor, few step then to chair, discussed pain and states 6-7 on scale 0/10, as pt has been drowsy, discussed medications after breakfast and given 10mg oxycodone, advised pt to avoid vistaril at this time due to sedation effects, hr reg 88, bs clear, ra 93% denies nausea and soren gen diet.
--- NOTE | 2019-02-01 11:07 | P.PN_ITS ---
Subjective Date Patient Seen: 02/01/19 Time Patient Seen: 11:06 Interval history: Hospital day 3, postop day 2 following right total hip arthroplasty. patient has remained stable postoperatively. Slowly advancing with ambulation. Still had some right leg weakness. taking Dilaudid 2 mg and oxycodone for pain. patient feels she is not quite ready for discharge home today. she is scheduled to go to [facility] PT. Exam Vital Signs (past 8 hours): - 02/01/19 04:10 02/01/19 08:00 Temperature 99.3 F 98.8 F Pulse Rate 85 95 H Respiratory Rate 18 16 Blood Pressure 130/75 127/62 Pulse Oximetry 98 97 Oxygen Delivery Method Room Air Oxygen Flow Rate 0 Narrative Exam Narrative: Alert, oriented no acute distress resting in bed. legs. Dressing to right hip is dry without drainage or inflammation. No calf pain or swelling. Pulses symmetrical. Objective Labs Result Diagrams: 01/31/19 06:47 Assessment & Plan Post-op Postoperative Procedures Operation Date: 01/30/19 11:30 Actual Procedures Side Surgeon p Total Hip Arthroplasty Right Kian Malcolm MD Plan: Patient will work with PT more today. Observe for improvement in pain and function. Anticipate discharge home tomorrow if stable.
[2019-02-01 11:30] VITALS: BP 116/88; PULSE 71; RESP 16; TEMP 37.1; O2SAT 100
--- NOTE | 2019-02-01 11:39 | PT.IPTN ---
Current Diagnoses Unilateral primary osteoarthritis, right hip (01/30/19) Surgery Performed Operation Date: 01/30/19 11:30 Actual Procedures p Total Hip Arthroplasty(Right) - Kian Malcolm MD Physical Therapy Treatment Note M2 PT-IP Current Condition Start: 01/30/19 17:39 Freq: NEEDED Status: Active Protocol: Document 01/30/19 16:15 HH (Rec: 01/30/19 18:00 HH [email or web address]) Physical Therapy Current Condition Current Condition Evaluation Date 01/30/19 Treatment Diagnosis R ANTHONY (post approach), impaired gait and activity tolerance. Onset Date 01/30/19 Precautions Posterior Hip Precautions No Hip Flexion > 90 degrees No Hip Internal Rotation No Hip Adduction Weight Bearing Status Weight Bearing Status Weight Bear as Tolerated M3 PT-IP Subjective Start: 01/30/19 17:39 Freq: NEEDED Status: Active Protocol: Document 02/01/19 11:31 SA (Rec: 02/01/19 11:39 [id number]) Subjective Physical Therapy Visit Type Type Treatment Note Visit Start Time 10:20 Visit Stop Time 10:50 Total Visit Minutes 30 Number of CARD FEEDER Visits 2 Physical Therapy Visit Comments Patient Comments Pt rates pain as 6/10, willing to get up with PT. present Therapy Pain Assessment Pain When Pain Assessed During Mobility Pain Present Pain Present Pain Reported Location Right Hip Intensity 6 Scale Used Numeric (1 - 10) Pain Management Techniques Apply Cold Modification of Treatment Re-positioning Timing of Activity with Medications M4 PT-IP Mobility and Gait Start: 01/30/19 17:39 Freq: NEEDED Status: Active Protocol: Document 02/01/19 11:31 SA (Rec: 02/01/19 11:39 [email or web address]) PT-Bed Mobility Assessment Rolling Type of Rolling Roll to Right Level of Assist Minimal Assistance Supine to Sit Supine to Sit Minimal Assistance Head of Bed Elevated Bedrails Sit to Supine Sit to Supine Minimal Assistance Scooting Scooting to Edge of Bed Minimal Assistance Scooting Up and Down in Bed Minimal Assistance PT-Transfer Assessment Sit to and From Stand Sit to and from Stand Minimal Assistance 1 Person Assistance Equipment Transfer Assistive Device Gait Belt Front Wheeled Walker Orthotic/Prosthetic Devices or Brace: No Transfers Transfer Destination Chair Toilet Transfer Ability Level of Assist Minimal Assistance Use of Upper Extremities Comments Mobility Comments Pt Min A with bed mobility and transfers, pain is most limiting factor and is very gaurded. Gait Assessment Gait Gait Assistance Required: Contact Guard Assist Distance (Feet) 65 Assistive Devices Assistive Device Gait Belt Front Wheeled Walker Orthotic/Prosthetic Devices or Brace: No Gait Deviations General Gait Pattern Antalgic Decreased Stride Length Decreased Feet Clearance Step-to Gait Factors Limiting Gait Function Factors Limiting Gait Function Decreased Activity Tolerance Decreased Strength Pain Comments Gait Comments Gait training in room and garner with FWW and CGA, step to gait pattern and cues for decreasing UE WBing. Stair Climbing Assessment Comments Stair Climbing Comments To attempt stairs this afternoon. M5 PT-IP Objective Assessments Start: 01/30/19 17:39 Freq: NEEDED Status: Active Protocol: Document 01/30/19 16:15 HH (Rec: 01/30/19 18:00 HH [email or web address]) Orientation Orientation/Cognition Level of Alertness Alert Orientation Name Age Birthday Month Date Year Day of Week Place Situation Language Function Ability No Deficits Noted Safety Awareness Understands Safety Issues Memory Description No Deficits Noted Comments Pt is able to recall precautions 3/3 Gross Range of Motion Upper Extremity ROM Assessment Within Functional Limits Lower Extremity ROM Assessment Right Impaired Strength Upper Extremity Strength Assessment Within Functional Limits Lower Extremity Strength Assessment Right Impaired Comments Strength Comments RLE overall strength 3/5 Coordination Assessment Gross Coordination Gross Coordination WNL Assessment Finger to Nose Test Normal Performance Pronation/Supination Test Normal Performance Sensation Assessment Sensation Gross Sensation Right LE Impaired Light Touch Impaired Proprioception (Position) Impaired Sensation Description Numbness M6 PT-IP Treatment Start: 01/30/19 17:39 Freq: NEEDED Status: Active Protocol: Document 02/01/19 11:31 SA (Rec: 02/01/19 11:39 [email or web address]) Physical Therapy Treatment Exercises Exercises Ankle Pumps Gluteal Sets Quad Sets Education Education Provided Precautions Weight Bearing Status Safety M7 PT-IP Assessment and Plan Start: 01/30/19 17:39 Freq: NEEDED Status: Active Protocol: Document 02/01/19 11:31 SA (Rec: 02/01/19 11:39 [email or web address]) PT Summary Assessment and Plan Summary Impairments Pain ROM Strength Balance Sensation Bed Mobility Transfers Gait Activity Tolerance Assessment Summary Pt progressed with gait and bed mobility today, pain is limiting factor but pt was able to stand at sink and wash face, hands and brush teeth. Improved tolerance of WBing activity today. Frequency of Treatment Frequency Of Treatment Twice a Day Treatment Plan Physical Therapy Treatment Plan Bed Mobility Training Transfer Training Gait Training Therapeutic Exercise Balance Retraining Post Op Education Discharge Planning Hot or Cold Pack Other Recommendations and Next Treatment review precautions Focus bed mob, transfer, gait training as soren climb 1 step without railing if possible. Recommendations To Nursing Amount of Assist Needed 1 Person Assist Discharge Recommendations PT Discharge Recommendations Home with Assistance Outpatient PT
[2019-02-01] MEDS: SENNOSIDES 8.6 MG TABLET PO (12:02)
[2019-02-01] MEDS: DOCUSATE 100 MG CAPSULE 200 MG PO (12:02)
[2019-02-01] MEDS: OXYCODONE IR 5 MG TABLET PO (14:41)
--- NOTE | 2019-02-01 15:12 | PT.IPTN ---
Current Diagnoses Unilateral primary osteoarthritis, right hip (01/30/19) Surgery Performed Operation Date: 01/30/19 11:30 Actual Procedures p Total Hip Arthroplasty(Right) - Kian Malcolm MD Physical Therapy Treatment Note M2 PT-IP Current Condition Start: 01/30/19 17:39 Freq: NEEDED Status: Active Protocol: Document 01/30/19 16:15 HH (Rec: 01/30/19 18:00 HH [email or web address]) Physical Therapy Current Condition Current Condition Evaluation Date 01/30/19 Treatment Diagnosis R ANTHONY (post approach), impaired gait and activity tolerance. Onset Date 01/30/19 Precautions Posterior Hip Precautions No Hip Flexion > 90 degrees No Hip Internal Rotation No Hip Adduction Weight Bearing Status Weight Bearing Status Weight Bear as Tolerated M3 PT-IP Subjective Start: 01/30/19 17:39 Freq: NEEDED Status: Active Protocol: Document 02/01/19 15:04 SA (Rec: 02/01/19 15:12 SA [id number]) Subjective Physical Therapy Visit Type Type Treatment Note Visit Start Time 14:34 Visit Stop Time 15:00 Total Visit Minutes 26 Number of COLLECTIONS ANALYST Visits 3 Physical Therapy Visit Comments Patient Comments Pt reports no pain at rest but 5-6/10 with WBing. Patient Goals to return home with . Therapy Pain Assessment Pain When Pain Assessed During Mobility Pain Present Pain Present Pain Reported Location Right Hip Intensity 6 Scale Used Numeric (1 - 10) Pain Management Techniques Apply Cold Modification of Treatment Re-positioning Timing of Activity with Medications M4 PT-IP Mobility and Gait Start: 01/30/19 17:39 Freq: NEEDED Status: Active Protocol: Document 02/01/19 15:04 SA (Rec: 02/01/19 15:12 SA [id number]) PT-Transfer Assessment Sit to and From Stand Sit to and from Stand Contact Guard Assistance 1 Person Assistance Equipment Transfer Assistive Device Gait Belt Front Wheeled Walker Orthotic/Prosthetic Devices or Brace: No Transfers Transfer Destination Chair Transfer Technique Stand Step Pivot Transfer Ability Level of Assist Contact Guard Assistance 1 Person Assistance Comments Mobility Comments Pt CGA with sit to stands and transfers using FWW. Caregiver education with for safe txs, precautions and use of gait belt. Gait Assessment Gait Gait Assistance Required: Contact Guard Assist Distance (Feet) 100 Assistive Devices Assistive Device Gait Belt Front Wheeled Walker Orthotic/Prosthetic Devices or Brace: No Gait Deviations General Gait Pattern Antalgic Decreased Stride Length Decreased Feet Clearance Step-to Gait Factors Limiting Gait Function Factors Limiting Gait Function Decreased Activity Tolerance Decreased Strength Pain Comments Gait Comments Pt able to correct step length with cues, CGA/FWW with gait and cues for limiting UE WBing . Stair Climbing Assessment Evaluation Level of Assist On Stairs Contact Guard Assistance Devices Stair Climbing Assistive Devices Front Wheel Walker Technique/Endurance Stair Climbing Direction Ascend and Descend Stair Climbing Technique Step to Step Number of Steps Climbed 1 Query Text: Stair Climbing Set # Repetitions (reps) 1 Comments Stair Climbing Comments Pt able to ascend/descend platform with FWW and CGA, mod cues for safety. present for caregiver training and would like to try stair again prior to d/c. M5 PT-IP Objective Assessments Start: 01/30/19 17:39 Freq: NEEDED Status: Active Protocol: Document 01/30/19 16:15 HH (Rec: 01/30/19 18:00 HH [email or web address]) Orientation Orientation/Cognition Level of Alertness Alert Orientation Name Age Birthday Month Date Year Day of Week Place Situation Language Function Ability No Deficits Noted Safety Awareness Understands Safety Issues Memory Description No Deficits Noted Comments Pt is able to recall precautions 3/3 Gross Range of Motion Upper Extremity ROM Assessment Within Functional Limits Lower Extremity ROM Assessment Right Impaired Strength Upper Extremity Strength Assessment Within Functional Limits Lower Extremity Strength Assessment Right Impaired Comments Strength Comments RLE overall strength 3/5 Coordination Assessment Gross Coordination Gross Coordination WNL Assessment Finger to Nose Test Normal Performance Pronation/Supination Test Normal Performance Sensation Assessment Sensation Gross Sensation Right LE Impaired Light Touch Impaired Proprioception (Position) Impaired Sensation Description Numbness M6 PT-IP Treatment Start: 01/30/19 17:39 Freq: NEEDED Status: Active Protocol: Document 02/01/19 15:04 SA (Rec: 02/01/19 15:12 SA [id number]) Physical Therapy Treatment Exercises Exercises Ankle Pumps Gluteal Sets Quad Sets Education Education Provided Precautions Weight Bearing Status Safety M7 PT-IP Assessment and Plan Start: 01/30/19 17:39 Freq: NEEDED Status: Active Protocol: Document 02/01/19 15:04 SA (Rec: 02/01/19 15:12 SA [id number]) PT Summary Assessment and Plan Summary Impairments Pain ROM Strength Balance Sensation Bed Mobility Transfers Gait Activity Tolerance Assessment Summary Pt progressing well, displays anticipatory pain behavior. present for caregiver training, plan to attempt platform step again tomorrow AM prior to d/c. Frequency of Treatment Frequency Of Treatment Twice a Day Treatment Plan Physical Therapy Treatment Plan Bed Mobility Training Transfer Training Gait Training Therapeutic Exercise Balance Retraining Post Op Education Discharge Planning Hot or Cold Pack Recommendations To Nursing Amount of Assist Needed 1 Person Assist Discharge Recommendations PT Discharge Recommendations Home with Assistance Outpatient PT Equipment Needed for Home Before Pt has FWW and elevated toilet Discharge seat.
[2019-02-01 15:15] VITALS: BP 103/50; PULSE 85; RESP 17; TEMP 37.2; O2SAT 96
[2019-02-01 19:25] VITALS: BP 110/51; PULSE 75; RESP 16; TEMP 37.2; O2SAT 96
[2019-02-01] MEDS: DOXYCYCLINE HYCLATE 100 MG TABLET 50 MG PO (21:30)
[2019-02-01 23:40] VITALS: BP 128/67; PULSE 70; RESP 15; TEMP 37.1; O2SAT 98
[2019-02-02] MEDS: hydrOXYzine pamoate 25 MG CAPSULE PO (03:17)
[2019-02-02] MEDS: OXYCODONE IR 10 MG TABLET PO ×3 (03:17→13:08)
[2019-02-02 03:30] VITALS: BP 126/69; PULSE 72; RESP 16; TEMP 36.6; O2SAT 96
[2019-02-02 08:13] VITALS: BP 133/75; PULSE 83; RESP 16; TEMP 36.6
[2019-02-02] MEDS: ESTRADIOL NORETHINDRONE 1 EACH PO (09:32)
[2019-02-02] MEDS: ENOXAPARIN 40 MG/0.4 ML SYRINGE SUBCUT (09:32)
[2019-02-02] MEDS: ATENOLOL 50 MG TABLET PO (09:32)
[2019-02-02] MEDS: CALCIUM CARB/VIT D3 500/200 TABLET 1 EACH PO (09:33)
[2019-02-02] MEDS: AMLODIPINE 5 MG TABLET PO (09:33)
[2019-02-02] MEDS: hydroCHLOROthiazide 25 MG TABLET PO (09:34)
[2019-02-02] MEDS: POTASSIUM CHLORIDE 8 MEQ TABLET PO (09:35)
[2019-02-02] MEDS: LISINOPRIL 20 MG TABLET 40 MG PO (09:35)
[2019-02-02] MEDS: LEVOTHYROXINE 88 MCG TABLET PO (09:35)
--- NOTE | 2019-02-02 09:59 | PM.DS.1 ---
History of Present Illness Date Patient Seen: 02/02/19 Time Patient Seen: 09:59 Chief complaint: [id number] Total Hip Arthroplasty Narrative: Hospital day 4, postop day 3 following right posterior total hip arthroplasty. patient did well with PT yesterday. She has this with path patient. when asked if she was ready to go home today she was anxious but was okay for discharge. She is scheduled go to [facility] PT. She has been getting Lovenox daily postop period patient states she is not able to give herself injection and her is not going to do it for her. Discharge Providers Date of admission: 01/30/19 09:51 Discharge Date: 02/02/19 Primary care physician: Gina Portillo DO Consults: 01/30/19 14:38 Consult to Discharge Planning Routine Comment: Consult to Physical Therapy Evaluate & Treat Comment: Physician Instructions: post op ANTHONY protocol Consult to Respiratory Therapy Evaluate & Treat Comment: Physician Instructions: Evaluate and treat Discharge provider: Jose G Benavides PA-C Summary Discharge Diagnosis: Status post a right posterior total hip arthroplasty Hospital Course: Patient brought to hospital on 01/30/2019 for above-noted surgery. She remained stable postoperatively. Progressed slowly with PT. Patient ready for discharge home on postop day 3. Status at Discharge Cognitive/behavioral status at discharge: oriented Functional status at discharge: uses cane/walker Overall status at discharge: patient is progressing back to baseline Time Spent with Patient Less than 30 minutes Exam Vital Signs (past 8 hours): - 02/02/19 03:30 02/02/19 08:13 Temperature 97.9 F 97.8 F Pulse Rate 72 83 Respiratory Rate 16 16 Blood Pressure 126/69 133/75 Pulse Oximetry 96 Oxygen Delivery Method Room Air Oxygen Flow Rate 0 Narrative Exam Narrative: Alert, oriented no acute distress sitting in chair. Legs. Bulky dressing to right lateral hip is dry without drainage or inflammation. No calf pain or swelling. Pulses symmetrical. Objective Labs Result Diagrams: 01/31/19 06:47 Discharge Plan Discharge Plan Patient Disposition: Home Discharge comment: Discharge home today after cleared by PT. Apply CovRsite dressing to incision. ambulate as tolerated. She is scheduled to go to [facility] PT. Discharge Med Rec/Prescriptions Prescriptions: New oxycodone 10 mg Tablet 10 mg PO Q3HR PRN (Reason: Pain, Severe (7-10)) Qty: 30 RF: 0 Continued amlodipine [Norvasc] 5 mg tablet 5 mg PO QDAY Qty: 90 RF: 3 atenolol 50 mg tablet 50 mg PO QDAY Qty: 90 RF: 3 lisinopril-hydrochlorothiazide 20-12.5 mg tablet 2 tab PO QDAY Qty: 180 RF: 3 Disabled Parking Permit Qty: 1 RF: 0 tramadol 50 mg tablet 100 mg PO Q6HP PRN (Reason: pain) Qty: 240 RF: 2 levothyroxine 88 mcg tablet 88 mcg PO DAILY Qty: 30 RF: 0 turmeric root extract 500 mg capsule 1,000 mg PO DAILY RF: 0 estradiol-norethindrone acet [Activella] 0.5-0.1 mg tablet 1 tab PO Q DAY Qty: 90 RF: 3 omega-3 fatty acids [Fish Oil Concentrate] 1,000 mg capsule 1,000 mg PO BID RF: 0 cinnamon bark 500 mg capsule 1 tab PO BID RF: 0 [id number] 250 mg-200 mg- 1,500 unit tablet 1 tab PO TID RF: 0 calcium carbonate-vitamin D3 [Calcium 600 with Vitamin D3] 600 mg(1,500mg) -400 unit capsule 1 cap PO DAILY RF: 0 hydrocodone-acetaminophen 5-325 mg Tablet 1 tab PO TID PRN (Reason: pain) RF: 0 aspirin 325 mg Tablet 3 tab PO TID RF: 0 doxycycline hyclate 50 mg capsule 50 mg PO BEDTIME RF: 0 clobetasol [Temovate] 0.05 % cream 1 charles Topical HS PRN (Reason: Dry Skin) RF: 0 potassium chloride [Klor-Con 8] 8 mEq tablet extended release 8 meq PO DAILY RF: 0 Follow up/Referrals: Gina Portillo DO [Primary Care Provider] - Provider Discharge Instructions Diet: Diet as Tolerated Activity: Ambulate as tolerated. Use walker as needed. posterior total hip arthroplasty protocol x6 weeks postop Cold/Heat Therapy: Cold pack to right hip is needed. Skin/Wound/Dressing Care Report to your healthcare provider any signs of infection, such as:: chills, fever, night sweats, increased pain, unusual drainage and unusual redness Dressing: Keep CovRsite dressing in place until postop visit. Visit Report/Discharge Packet Instructions: [facility] for Hip Replacement Discharge Data Primary Care Provider: Gina Portillo Attending Provider: Kian Malcolm Admit Date/Time: 01/30/19 09:51
--- NOTE | 2019-02-02 10:03 | P.DS_ITS ---
History of Present Illness Date Patient Seen: 02/02/19 Time Patient Seen: 09:59 Chief complaint: 83152 Total Hip Arthroplasty Narrative: Hospital day 4, postop day 3 following right posterior total hip arthroplasty. patient did well with PT yesterday. She has this with path patient. when asked if she was ready to go home today she was anxious but was okay for discharge. She is scheduled go to [facility] PT. She has been getting Lovenox daily postop period patient states she is not able to give herself injection and her is not going to do it for her. Discharge Providers Date of admission: 01/30/19 09:51 Discharge Date: 02/02/19 Primary care physician: Gina Portillo DO Consults: 01/30/19 14:38 Consult to Discharge Planning Routine Comment: Consult to Physical Therapy Evaluate & Treat Comment: Physician Instructions: post op ANTHONY protocol Consult to Respiratory Therapy Evaluate & Treat Comment: Physician Instructions: Evaluate and treat Discharge provider: Jose G Benavides PA-C Summary Discharge Diagnosis: Status post a right posterior total hip arthroplasty Hospital Course: Patient brought to hospital on 01/30/2019 for above-noted surgery. She remained stable postoperatively. Progressed slowly with PT. Patient ready for discharge home on postop day 3. Status at Discharge Cognitive/behavioral status at discharge: oriented Functional status at discharge: uses cane/walker Overall status at discharge: patient is progressing back to baseline Time Spent with Patient Less than 30 minutes Exam Vital Signs (past 8 hours): - 02/02/19 03:30 02/02/19 08:13 Temperature 97.9 F 97.8 F Pulse Rate 72 83 Respiratory Rate 16 16 Blood Pressure 126/69 133/75 Pulse Oximetry 96 Oxygen Delivery Method Room Air Oxygen Flow Rate 0 Narrative Exam Narrative: Alert, oriented no acute distress sitting in chair. Legs. Bulky dressing to right lateral hip is dry without drainage or inflammation. No calf pain or swelling. Pulses symmetrical. Objective Labs Result Diagrams: 01/31/19 06:47 Discharge Plan Discharge Plan Patient Disposition: Home Discharge comment: Discharge home today after cleared by PT. Apply CovRsite dressing to incision. ambulate as tolerated. She is scheduled to go to [facility] PT. Discharge Med Rec/Prescriptions Prescriptions: New oxycodone 10 mg Tablet 10 mg PO Q3HR PRN (Reason: Pain, Severe (7-10)) Qty: 30 RF: 0 Continued amlodipine [Norvasc] 5 mg tablet 5 mg PO QDAY Qty: 90 RF: 3 atenolol 50 mg tablet 50 mg PO QDAY Qty: 90 RF: 3 lisinopril-hydrochlorothiazide 20-12.5 mg tablet 2 tab PO QDAY Qty: 180 RF: 3 Disabled Parking Permit Qty: 1 RF: 0 tramadol 50 mg tablet 100 mg PO Q6HP PRN (Reason: pain) Qty: 240 RF: 2 levothyroxine 88 mcg tablet 88 mcg PO DAILY Qty: 30 RF: 0 turmeric root extract 500 mg capsule 1,000 mg PO DAILY RF: 0 estradiol-norethindrone acet [Activella] 0.5-0.1 mg tablet 1 tab PO Q DAY Qty: 90 RF: 3 omega-3 fatty acids [Fish Oil Concentrate] 1,000 mg capsule 1,000 mg PO BID RF: 0 cinnamon bark 500 mg capsule 1 tab PO BID RF: 0 [id number] 250 mg-200 mg- 1,500 unit tablet 1 tab PO TID RF: 0 calcium carbonate-vitamin D3 [Calcium 600 with Vitamin D3] 600 mg(1,500mg) - 400 unit capsule 1 cap PO DAILY RF: 0 hydrocodone-acetaminophen 5-325 mg Tablet 1 tab PO TID PRN (Reason: pain) RF: 0 aspirin 325 mg Tablet 3 tab PO TID RF: 0 doxycycline hyclate 50 mg capsule 50 mg PO BEDTIME RF: 0 clobetasol [Temovate] 0.05 % cream 1 charles Topical HS PRN (Reason: Dry Skin) RF: 0 potassium chloride [Klor-Con 8] 8 mEq tablet extended release 8 meq PO DAILY RF: 0 Follow up/Referrals: Gina Portillo DO [Primary Care Provider] - Provider Discharge Instructions Diet: Diet as Tolerated Activity: Ambulate as tolerated. Use walker as needed. posterior total hip arthroplasty protocol x6 weeks postop Cold/Heat Therapy: Cold pack to right hip is needed. Skin/Wound/Dressing Care Report to your healthcare provider any signs of infection, such as:: chills, fever, night sweats, increased pain, unusual drainage and unusual redness Dressing: Keep CovRsite dressing in place until postop visit. Visit Report/Discharge Packet Instructions: [facility] for Hip Replacement Discharge Data Primary Care Provider: Gina Portillo Attending Provider: Kian Malcolm Admit Date/Time: 01/30/19 09:51
--- NOTE | 2019-02-02 11:35 | PC.NURSE ---
Addendum entered by Mahnaz Soto R.N. 02/02/19 14:05: DC - after lunch, family returned, scripts were picked up by spouse, pt given 10mg oxycodone prior to discharge, stood and removed the bulky dsg, the stapled incision was intact, no redness or drainage, replaced with coversite dsgs, reviewed dc instructions with pt, spouse, belongings gathered, tsf to and train master escorted to family car. Original Note: AM NOTE - pt assisted to chair for breakfast, does move slowly and winces with discomfort from mobilization, states pain 5-6 on scale 0/10, more with mobilization, r hip dsg cdi, states the oxycodone is providing relief and given 10mg po this am after breakfast prior to phys therapy, discussed constipation and narcotics and pt did have a bm this am, discussed dc lovenox per pt and spouse req with Lupillo Benavides and pt will go home with resumption of her previous reg ASA doses, per spouse they do have vistaril at home, given script for oxycodone to spouse who will take down to [facility] before dc home, plan to dc home after lunch.
[2019-02-02 12:15] VITALS: BP 117/73; PULSE 76; RESP 16; TEMP 37; O2SAT 97
--- NOTE | 2019-02-02 13:45 | PT.IPTN ---
Current Diagnoses Unilateral primary osteoarthritis, right hip (01/30/19) Surgery Performed Operation Date: 01/30/19 11:30 Actual Procedures p Total Hip Arthroplasty(Right) - Kian Malcolm MD Physical Therapy Treatment Note M2 PT-IP Current Condition Start: 01/30/19 17:39 Freq: NEEDED Status: Active Protocol: Document 01/30/19 16:15 HH (Rec: 01/30/19 18:00 HH [id number]) Physical Therapy Current Condition Current Condition Evaluation Date 01/30/19 Treatment Diagnosis R ANTHONY (post approach), impaired gait and activity tolerance. Onset Date 01/30/19 Precautions Posterior Hip Precautions No Hip Flexion > 90 degrees No Hip Internal Rotation No Hip Adduction Weight Bearing Status Weight Bearing Status Weight Bear as Tolerated M3 PT-IP Subjective Start: 01/30/19 17:39 Freq: NEEDED Status: Active Protocol: Document 02/02/19 13:38 SA (Rec: 02/02/19 13:45 SA [id number]) Subjective Physical Therapy Visit Type Type Treatment Note Visit Start Time 10:46 Visit Stop Time 11:18 Total Visit Minutes 32 Number of BID MANAGER Visits 4 Physical Therapy Visit Comments Patient Comments Pt up in chair, agreeable to PT this AM. Patient Goals to return home with . Therapy Pain Assessment Pain When Pain Assessed During Mobility Pain Present Pain Present Pain Reported Location Right Hip Intensity 5 Scale Used Numeric (1 - 10) Pain Management Techniques Apply Cold Modification of Treatment Re-positioning Timing of Activity with Medications M4 PT-IP Mobility and Gait Start: 01/30/19 17:39 Freq: NEEDED Status: Active Protocol: Document 02/02/19 13:38 SA (Rec: 02/02/19 13:45 SA [id number]) PT-Bed Mobility Assessment Rolling Type of Rolling Roll to Right Level of Assist Contact Guard Assistance Supine to Sit Supine to Sit Contact Guard Assistance 1 Person Assistance Sit to Supine Sit to Supine Contact Guard Assistance Scooting Scooting to Edge of Bed Contact Guard Assistance Scooting Up and Down in Bed Contact Guard Assistance PT-Transfer Assessment Sit to and From Stand Sit to and from Stand Contact Guard Assistance 1 Person Assistance Equipment Transfer Assistive Device Gait Belt Front Wheeled Walker Orthotic/Prosthetic Devices or Brace: No Transfers Transfer Destination Chair Toilet Transfer Technique Stand Step Pivot Transfer Ability Level of Assist Contact Guard Assistance 1 Person Assistance Comments Mobility Comments PT CGA with bed mobility and transfers, continued R hip and knee pain but increased ease of movement today, present for caregiver training. Gait Assessment Gait Gait Assistance Required: Contact Guard Assist Distance (Feet) 110 Assistive Devices Assistive Device Gait Belt Front Wheeled Walker Orthotic/Prosthetic Devices or Brace: No Gait Deviations General Gait Pattern Antalgic Decreased Stride Length Decreased Feet Clearance Step-to Gait Factors Limiting Gait Function Factors Limiting Gait Function Decreased Activity Tolerance Decreased Strength Pain Comments Gait Comments Improving gait quality with increasing step length and upright posture. Stair Climbing Assessment Evaluation Level of Assist On Stairs Contact Guard Assistance Devices Stair Climbing Assistive Devices Front Wheel Walker Technique/Endurance Stair Climbing Direction Ascend and Descend Stair Climbing Technique Step to Step Number of Steps Climbed 1 Query Text: Stair Climbing Set # Repetitions (reps) 2 Comments Stair Climbing Comments Pt able to ascend/descend platform with FWW and CGA, mod cues for safety. present for caregiver training and would like to try stair again prior to d/c. M5 PT-IP Objective Assessments Start: 01/30/19 17:39 Freq: NEEDED Status: Active Protocol: Document 01/30/19 16:15 HH (Rec: 01/30/19 18:00 HH [email or web address]) Orientation Orientation/Cognition Level of Alertness Alert Orientation Name Age Birthday Month Date Year Day of Week Place Situation Language Function Ability No Deficits Noted Safety Awareness Understands Safety Issues Memory Description No Deficits Noted Comments Pt is able to recall precautions 3/3 Gross Range of Motion Upper Extremity ROM Assessment Within Functional Limits Lower Extremity ROM Assessment Right Impaired Strength Upper Extremity Strength Assessment Within Functional Limits Lower Extremity Strength Assessment Right Impaired Comments Strength Comments RLE overall strength 3/5 Coordination Assessment Gross Coordination Gross Coordination WNL Assessment Finger to Nose Test Normal Performance Pronation/Supination Test Normal Performance Sensation Assessment Sensation Gross Sensation Right LE Impaired Light Touch Impaired Proprioception (Position) Impaired Sensation Description Numbness M6 PT-IP Treatment Start: 01/30/19 17:39 Freq: NEEDED Status: Active Protocol: Document 02/02/19 13:38 SA (Rec: 02/02/19 13:45 SA [id number]) Physical Therapy Treatment Exercises Exercises Ankle Pumps Gluteal Sets Quad Sets Education Education Provided Precautions Weight Bearing Status Safety M7 PT-IP Assessment and Plan Start: 01/30/19 17:39 Freq: NEEDED Status: Active Protocol: Document 02/02/19 13:38 (Rec: 02/02/19 13:45 [id number]) PT Summary Assessment and Plan Summary Impairments Pain ROM Strength Balance Sensation Bed Mobility Transfers Gait Activity Tolerance Assessment Summary Patient and ready for d/c home this afternoon. Pt able to manage bed mobility, transfers on/off toilet and single step to enter home. Frequency of Treatment Frequency Of Treatment Twice a Day Treatment Plan Physical Therapy Treatment Plan Bed Mobility Training Transfer Training Gait Training Therapeutic Exercise Balance Retraining Post Op Education Discharge Planning Hot or Cold Pack Recommendations To Nursing Amount of Assist Needed 1 Person Assist Discharge Recommendations PT Discharge Recommendations Home with Assistance Outpatient PT
--- NOTE | 2019-02-03 08:35 | CM.DPNOTE ---
Late Entry/ DC Note: Pt discussed in multidisciplinary rounds yesterday morning. No barriers indicated to safe return home. No SW needs upon DC. JW
== END 2019-02-02 14:09 | disposition home or self-care (01) | DRG 470 ==
PROVIDERS: Admitting Provider Orthopaedic Surgery; Family Provider Orthopaedic Surgery; PCP Family Medicine; Visit Provider Orthopaedic Surgery
PROC: 0SR90JZ Replacement of Right Hip Joint with Synthetic Substitute, Open Approach (ICD-10-PCS; CPT 27130; principal; 2019-01-30 11:30)
DX: M16.11 Unilateral primary osteoarthritis, right hip (principal); I10 Essential (primary) hypertension; Z96.642 Presence of left artificial hip joint; Z96.652 Presence of left artificial knee joint; M70.61 Trochanteric bursitis, right hip; E66.9 Obesity, unspecified; Z68.35 Body mass index [BMI] 35.0-35.9, adult
CPT/HCPCS: 36415; 72170; 85014; 85018; 93005; 93010; 94760; 97116; 97161; 97530; C1776; J0690; J1170; J1650; J1885; J2250; J2270; J2405; J2704; J2795; J3010

== ENCOUNTER → 2019-02-14 17:01 | Outpatient (CLI) | payer MEDICARE, BC, SELFPAY ==
[2019-01-30 10:06] VITALS: BMI 34.9
--- NOTE | 2019-02-14 | DI.US.S_ITS ---
PROCEDURE: US PERIPH VENOUS LOW EXTREM RT INDICATIONS: RT LEG SWELLING TECHNIQUE: Real-time imaging, as well as color and pulse Doppler interrogation, were performed of the lower extremity deep veins from the inguinal ligament to the popliteal fossa. Technically challenging exam secondary to patient body habitus and difficulty with cooperation. COMPARISON: None. FINDINGS: Common femoral vein and greater saphenous vein near the confluence demonstrate normal compressibility. Proximal superficial femoral vein demonstrates compression. There is partial compression of the mid superficial femoral vein and distally, superficial femoral vein is difficult to compress. This is difficult to detect flow in the mid and distal superficial femoral vein to by color or spectral imaging, however augmentation is possible. Popliteal vein demonstrates expansile thrombus. No flow In the popliteal fossa, there is irregular hypoechoic fluid collection measuring about 4.8 x 2.7 x 4.1 cm. IMPRESSION: 1.There is partially occlusive to completely occlusive thrombus involving the popliteal vein, distal superficial femoral vein, and portion of the mid superficial femoral vein. 2. 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 3. Ordering provider was contacted by the technologist with preliminary results. Dictated by: Kary Sahni M.D. on 02/14/2019 at 19:23 Approved by: Kary Sahni M.D. on 02/14/2019 at 19:28
== END ==
PROVIDERS: Family Provider Orthopaedic Surgery; PCP Family Medicine; Visit Provider Physician Assistant Medical
DX: M79.604 Pain in right leg (principal); I82.431 Acute embolism and thrombosis of right popliteal vein; I82.411 Acute embolism and thrombosis of right femoral vein; M71.21 Synovial cyst of popliteal space [Baker], right knee
CPT/HCPCS: 93971

== ENCOUNTER 2019-02-14 18:48 | Emergency (ER) | payer MEDICARE, BC, SELFPAY ==
[2019-01-30 10:06] VITALS: BMI 34.9
[2019-02-14 19:02] VITALS: BP 145/83; PULSE 80; RESP 22; TEMP 36.8; O2SAT 100
[2019-02-14 20:22] VITALS: PULSE 78
[2019-02-14 20:41] LABS: Add Manual Diff / Slide Review NO; Basophils Absolute Auto 100 /uL (0-100); Basophils Percent Auto 0.9 % (0-2); Eosinophils Absolute Auto 300 /uL (0-450); Eosinophils Percent Auto 4.2 % (2-4); Hematocrit 32.9 % (36-46); Hemoglobin 10.8 g/dL (12.0-16.0); Lymphocytes Absolute Auto 1500 /uL (1100-4500); Lymphocytes Percent Auto 18.4 % (25-40); Mean Corpuscular HGB Conc 32.8 % (30-36); Mean Corpuscular Hemoglobin 29.4 PG (26-34); Mean Corpuscular Volume 89.7 fL (80-100); Monocytes Absolute Auto 700 /uL (0-900); Monocytes Percent Auto 8.6 % (3-14); Neutrophils Absolute Auto 5600 /uL (1500-7000); Neutrophils Percent Auto 67.9 % (50-75); Platelet Count 447 X10^3/uL (150-400); Red Blood Cell Count 3.67 X10^6/uL (4.0-5.2); Red Cell Distribution Width 14.9 % (11.6-14.8); White Blood Cell Count 8.3 X10^3/uL (4.5-11.0)
--- NOTE | 2019-02-14 20:43 | ED.EXTPRO ---
HPI - Extremity Problem General Chief complaint: Extremity Problem,Nontraumatic Stated complaint: + DVT on ultrasound Time Seen by Provider: 02/14/19 20:42 Source: patient Mode of arrival: ambulatory Limitations: no limitations History of Present Illness HPI Narrative: Patient is a 74-year-old female who was sent over from the radiology department after she had a positive right lower extremity DVT ultrasound. Approximately 1 week ago she underwent a right-sided total hip arthroplasty. She is currently just on aspirin. She did have lower extremity swelling and a ultrasound was ordered by the Orthopedic Department. This was ordered as an outpatient and was performed as an outpatient however when the study was positive she was sent to the emergency department. Patient denies any chest pain or shortness of breath. this never had a GI bleed in the past. Has never had a hemorrhagic stroke in the past. Related Data Home Medications Medication Instructions Recorded Confirmed hydrocodone-acetaminophen 1 tab PO TID PRN 06/24/18 01/30/19 turmeric root extract 500 mg 1,000 mg PO DAILY 07/01/18 01/30/19 capsule calcium carbonate-vitamin D3 600 1 cap PO DAILY cap 12/23/18 01/30/19 mg (1,500 mg)-400 unit capsule cinnamon bark 500 mg capsule 1 tab PO BID cap 12/23/18 01/30/19 glucosamine 250 ze-yxmow-knw 200 1 tab PO TID tab 12/23/18 01/30/19 mg-D3 1,500 komv-N-jwicw-herbs tablet omega-3 fatty acids 1,000 mg 1,000 mg PO BID 12/23/18 01/30/19 capsule aspirin 3 tab PO TID 01/18/19 01/30/19 clobetasol [Temovate] 1 charles TOPICAL HS PRN 01/18/19 01/18/19 doxycycline hyclate 50 mg PO BEDTIME 01/18/19 01/30/19 potassium chloride [Klor-Con 8] 8 meq PO DAILY 01/18/19 01/30/19 Previous Rx's Medication Instructions Recorded amlodipine 5 mg tablet 5 mg PO QDAY #90 tab 04/26/18 atenolol 50 mg tablet 50 mg PO QDAY #90 tab 07/21/18 lisinopril 20 2 tab PO QDAY #180 tab 07/21/18 mg-hydrochlorothiazide 12.5 mg tablet estradiol-norethindrone acet 0.5 1 tab PO Q DAY #90 tab 09/02/18 mg-0.1 mg tablet Disabled Parking Permit #1 ea 10/05/18 tramadol 50 mg tablet 100 mg PO Q6HP PRN #240 tab 12/09/18 levothyroxine 88 mcg tablet 88 mcg PO DAILY #30 tab 12/29/18 oxycodone 10 mg PO Q3HR PRN #30 tab 02/02/19 rivaroxaban [Xarelto] 15 mg PO BID 21 Days #42 tab 02/14/19 Allergies Allergy/AdvReac Type Severity Reaction Status Date / Time Iodine and Iodide Containing Allergy Severe ANAPHYLAXIS Verified 12/23/18 11:35 Produc [IODINE AND IODIDE CONTAINING PRODUC] adhesive [ADHESIVE] Allergy Mild LOCAL RASH Verified 12/23/18 11:35 enalapril [ENALAPRIL] Allergy Mild WHOLE BODY Verified 12/23/18 11:35 EDEMA Review of Systems Constitutional Denies fever(s) Cardiovascular Denies chest pain and Denies dyspnea Respiratory Denies dyspnea Gastrointestinal Gastrointestinal: Denies abdominal pain Genitourinary Denies dysuria Musculoskeletal Reports abnormal gait (Secondary to right hip replacement), Reports myalgias (Right lower extremity), Reports arthralgias (Right hip) and Reports joint swelling (Right hip and right knee) Comments: Right lower extremity swelling Integumentary/Breasts Comments: Right-sided hip incision Neurologic Reports abnormal gait (Secondary to right hip replacement) Hematologic/Lymphatic Denies easy bleeding and Denies easy bruising Allergic/Immunologic Denies urticaria [facility] Medical History Numbness (Acute) Arthritis (Chronic) Cataract (Chronic) GERD (gastroesophageal reflux disease) (Chronic) Hemorrhoids (Chronic 2014) Hyperlipidemia (Chronic) Hypertension (Chronic 1989) Hypothyroidism (Chronic 2012) Osteoarthritis (Chronic) Prediabetes (Chronic) Rosacea (Chronic 2000) Chicken pox (Resolved) History of nephrolithiasis (Resolved) Measles (Resolved) Mumps (Resolved) Ovarian cyst, bilateral (Resolved 12/2013) Surgical History History of arthroplasty of left knee (Acute ~2011) History of total left hip arthroplasty (Acute ~2013) Hx of appendectomy (Acute) Hx of left inguinal hernia repair (Acute) Status post bilateral cataract extraction (Acute ~2012) Anesthesia (Resolved) History of bilateral salpingo-oophorectomy (BSO) (Resolved 2013) Status post dilation and curettage (Resolved 1983) Status post ovarian cystectomy (Resolved 1967) Family History Father Diabetes mellitus Heart disease Grandfather Stroke Mother Cancer Stroke Colon cancer Sister Age: 59 Congenital heart disease Brother Prostate cancer Daughter SUKH positive Daughter Taqueria's thyroiditis Grandmother No problems noted. Grandmother No problems noted. Son Schizophrenia Social History Smoking Status: Never smoker alcohol intake: never substance use type: does not use Family History Father Diabetes mellitus Heart disease Grandfather Stroke Mother Cancer Stroke Colon cancer Sister Age: 59 Congenital heart disease Brother Prostate cancer Daughter SUKH positive Daughter Taqueria's thyroiditis Grandmother No problems noted. Grandmother No problems noted. Son Schizophrenia Social History Smoking Status: Never smoker alcohol intake: never substance use type: does not use Exam Initial Vital Signs Initial Vital Signs: Vital Signs Temperature 98.2 F 02/14/19 19:02 Pulse Rate 80 02/14/19 19:02 Respiratory Rate 22 02/14/19 19:02 Blood Pressure 145/83 H 02/14/19 19:02 Pulse Oximetry 100 02/14/19 19:02 Const General: cooperative, comfortable, well developed, well groomed and No acute distress Orientation: alert and awake Resp Effort & Inspection: normal respiratory effort Cardio Rate: regular rate Skin Other: Well-healing surgical scar right hip Neuro General: alert, awake and oriented x3 Extrem General: capillary refill normal Other: Patient does have circumferential swelling to the right lower extremity from the hip to the mid calf. Psych Appearance: grossly normal and well kempt Course Orders Ordered: ED Orders 02/14/19 20:32 Complete Blood Count AUTO DIFF Stat Comprehensive Metabolic Panel Stat PT [Prothrombin Time INR] Stat Partial Thromboplastin Time Stat Discontinued Medications Hydromorphone HCl (Dilaudid) 2 mg PO NOW ONE Stop: 02/14/19 20:22 Last Admin: 02/14/19 21:01 Dose: 2 mg Rivaroxaban (Xarelto) 15 mg PO NOW ONE Stop: 02/14/19 21:12 Last Admin: 02/14/19 21:21 Dose: 15 mg Vital Signs - 8 hr 02/14/19 20:22 02/14/19 21:59 Pulse Rate 72 Pulse Rate [Right Dorsalis Pedis] 78 Respiratory Rate 18 Blood Pressure 139/79 Pulse Oximetry 100 MDM - Extremity (Nontraumatic) Lab Data Result diagrams: 02/14/19 20:32 02/14/19 20:32 Lab Results 02/14/19 02/14/19 02/14/19 Range/Units 20:32 20:32 20:32 WBC 8.3 (4.5-11.0) X10^3/uL RBC 3.67 L (4.0-5.2) X10^6/uL Hgb 10.8 L (12.0-16.0) g/dL Hct 32.9 L (36-46) % MCV 89.7 (80-100) fL MCH 29.4 (26-34) PG MCHC 32.8 (30-36) % RDW 14.9 H (11.6-14.8) % Plt Count 447 H (150-400) X10^3/uL Neut % (Auto) 67.9 (50-75) % Lymph % (Auto) 18.4 L (25-40) % Burnet % (Auto) 8.6 (3-14) % Eos % (Auto) 4.2 H (2-4) % Baso % (Auto) 0.9 (0-2) % Neut # (Auto) 5600 (9972-3374) /uL Lymph # (Auto) 1500 (5410-6622) /uL Burnet # (Auto) 700 (0-900) /uL Eos # (Auto) 300 (0-450) /uL Baso # (Auto) 100 (0-100) /uL PT 10.9 (10.1-12.7) SECONDS INR 0.9 (0.9-1.3) APTT 18 L D (26.4-36.2) SECONDS Sodium 137 (137-145) mmol/L Potassium 4.3 (3.4-5.1) mmol/L Chloride 104 (98-107) mmol/L Carbon Dioxide 21 L (22-32) mmol/L BUN 31 H (7-17) mg/dL Creatinine 1.00 (0.52-1.04) mg/dL Estimated GFR 54.5 L (>60) mL/min BUN/Creatinine Ratio 31.0 H (6-22) Glucose 161 H (80-110) mg/dL Calcium 9.7 (8.4-10.2) mg/dL Total Bilirubin 0.6 (0.2-1.3) mg/dL AST 22 (14-36) IU/L ALT 22 (9-52) IU/L Alkaline Phosphatase 92 (38-126) U/L Total Protein 7.4 (6.3-8.2) g/dL Albumin 4.1 (3.5-5.0) g/dL Globulin 3.3 (1.7-4.1) g/dL Albumin/Globulin Ratio 1.2 (1.0-2.8) Imaging Data Venous US: Radiologist's impression: [place] [id number] Ultrasound Report Signed Patient: Soha Harp EMR#: [id number] : 7Acct:[id number] Age/Sex: 74 / FDate of Service: 02/14/19 Loc: Accession Number: [id number] Procedure: US periph venous low extrem rt Ordering Provider: Scotty Montenegro P.A-C PROCEDURE: US PERIPH VENOUS LOW EXTREM RT INDICATIONS: RT LEG SWELLING TECHNIQUE: Real-time imaging, as well as color and pulse Doppler interrogation, were performed of the lower extremity deep veins from the inguinal ligament to the popliteal fossa. Technically challenging exam secondary to patient body habitus and difficulty with cooperation. COMPARISON: None. FINDINGS: Common femoral vein and greater saphenous vein near the confluence demonstrate normal compressibility. Proximal superficial femoral vein demonstrates compression. There is partial compression of the mid superficial femoral vein and distally, superficial femoral vein is difficult to compress. This is difficult to detect flow in the mid and distal superficial femoral vein to by color or spectral imaging, however augmentation is possible. Popliteal vein demonstrates expansile thrombus. No flow In the popliteal fossa, there is irregular hypoechoic fluid collection measuring about 4.8 x 2.7 x 4.1 cm. IMPRESSION: 1.There is partially occlusive to completely occlusive thrombus involving the popliteal vein, distal superficial femoral vein, and portion of the mid superficial femoral vein. 2. 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 3. Ordering provider was contacted by the technologist with preliminary results. Dictated by: Kary Sahni M.D. on 02/14/2019 at 19:23 Approved by: Kary Sahni M.D. on 02/14/2019 at 19:28 [facility] Narrative Medical decision making narrative: Patient does not have any chest pain or shortness of breath. I have low suspicion for PE. She does have right lower extremity swelling which is most likely secondary to her recent hip surgery and also the blood clot. The ultrasound report included in this note is for reference only. It was ordered has an outpatient study by the Orthopedic Department. Will start the patient on anticoagulation. We did discuss the risks and benefits of this to include prevention of future clots and also to reducing the risk of pulmonary embolism. We also discussed the risk for this to include spontaneous bleeding. We discussed the importance of avoiding falling especially in the setting where she recently just had a right hip replacement. She was informed to contact her orthopedic surgeon tomorrow for follow-up. She was given return precautions and follow-up instructions. She expressed understanding and agreement with plan. Her 1st dose of anticoagulation was given here in the emergency department. Discharge Plan Departure Patient Disposition: Home Clinical Impression: DVT (deep venous thrombosis) Qualifiers: DVT location: lower extremity Affected thrombotic vein of extremity: unspecified vein of extremity Chronicity: acute Laterality: right Qualified Code(s): I82.401 - Acute embolism and thrombosis of unspecified deep veins of right lower extremity Discharge Date/Time: 02/14/19 21:59 Interventions: ED Discharge Assessment Last Done: 02/14/19 21:59 Instructions: DI for Deep Vein Thrombosis Activity Restrictions/Additional Instructions: Tomorrow contact your orthopedic surgeon for further instructions. Recommend that you stop taking the aspirin and start taking the blood thinner you were given a prescription for. You need to be especially careful to avoid falling. Return to the emergency department for any new symptoms to include chest pain, shortness of breath, headaches, black colored stools, or any other concerning symptoms. The dose of the blood thinner you were given a prescription for does change after 21 days. The prescription today only covers the 1st 21 days. Talk with your primary doctor or your orthopedic doctor for the remainder of the treatment. Prescriptions: New Xarelto 15 mg tablet 15 mg PO BID 21 Days Qty: 42 RF: 0 No Action amlodipine [Norvasc] 5 mg tablet 5 mg PO QDAY Qty: 90 RF: 3 atenolol 50 mg tablet 50 mg PO QDAY Qty: 90 RF: 3 lisinopril-hydrochlorothiazide 20-12.5 mg tablet 2 tab PO QDAY Qty: 180 RF: 3 Disabled Parking Permit Qty: 1 RF: 0 tramadol 50 mg tablet 100 mg PO Q6HP PRN (Reason: pain) Qty: 240 RF: 2 levothyroxine 88 mcg tablet 88 mcg PO DAILY Qty: 30 RF: 0 turmeric root extract 500 mg capsule 1,000 mg PO DAILY RF: 0 estradiol-norethindrone acet [Activella] 0.5-0.1 mg tablet 1 tab PO Q DAY Qty: 90 RF: 3 omega-3 fatty acids [Fish Oil Concentrate] 1,000 mg capsule 1,000 mg PO BID RF: 0 cinnamon bark 500 mg capsule 1 tab PO BID RF: 0 [id number] 250 mg-200 mg- 1,500 unit tablet 1 tab PO TID RF: 0 calcium carbonate-vitamin D3 [Calcium 600 with Vitamin D3] 600 mg(1,500mg) -400 unit capsule 1 cap PO DAILY RF: 0 hydrocodone-acetaminophen 5-325 mg Tablet 1 tab PO TID PRN (Reason: pain) RF: 0 aspirin 325 mg Tablet 3 tab PO TID RF: 0 doxycycline hyclate 50 mg capsule 50 mg PO BEDTIME RF: 0 clobetasol [Temovate] 0.05 % cream 1 charles Topical HS PRN (Reason: Dry Skin) RF: 0 potassium chloride [Klor-Con 8] 8 mEq tablet extended release 8 meq PO DAILY RF: 0 oxycodone 10 mg Tablet 10 mg PO Q3HR PRN (Reason: Pain, Severe (7-10)) Qty: 30 RF: 0 Referrals: Gina Portillo DO [Primary Care Provider] -
[2019-02-14 20:46] LABS: INR 0.9 (0.9-1.3); Prothrombin Time 10.9 SECONDS (10.1-12.7)
[2019-02-14 20:48] LABS: PTT Partial Thromboplastin Tim 18 SECONDS (26.4-36.2)
[2019-02-14 20:55] LABS: Alanine Aminotransferase 22 IU/L (9-52); Albumin 4.1 g/dL (3.5-5.0); Albumin Globulin Ratio 1.2 (1.0-2.8); Alkaline Phosphatase 92 U/L (38-126); Aspartate Aminotransferase 22 IU/L (14-36); Bilirubin Total 0.6 mg/dL (0.2-1.3); Blood Urea Nitrogen 31 mg/dL (7-17); Calcium 9.7 mg/dL (8.4-10.2); Carbon Dioxide 21 mmol/L (22-32); Chloride 104 mmol/L (98-107); Estimated Glomerular Filt Rate 54.5 mL/min (>60); Globulin 3.3 g/dL (1.7-4.1); Glucose 161 mg/dL (80-110); HEMOLYSIS 34 (0-50); Potassium 4.3 mmol/L (3.4-5.1); Sodium 137 mmol/L (137-145); Total Protein 7.4 g/dL (6.3-8.2)
[2019-02-14] MEDS: HYDROMORPHONE 2 MG TABLET PO (21:01)
[2019-02-14] MEDS: RIVAROXABAN 10 MG TABLET 15 MG PO (21:21)
[2019-02-14 21:59] VITALS: BP 139/79; PULSE 72; RESP 18; O2SAT 100
--- NOTE | 2019-02-15 11:05 | PC.NURSE ---
Received phone call from Mr. Harp. He is having trouble filling Xeralto script as [facility] requires pre authorization. Called [facility] and spoke w/ pharmacist. She gave me pre auth phone number ([phone]) as well as pt id [phone]. Called [facility] but was unable to complete pre auth as we are not pt's pcp. Called Dr. Byrd office and spoke w/ CJ. CJ will initiate pre auth process. Mr. Harp updated by phone and will pickle maker 24 hours worth of drug to allow time for pre authorization to go through. Pt has follow up appointment on Wednesday w/ Dr. Portillo.
== END 2019-02-14 21:59 | disposition home or self-care (01) ==
PROVIDERS: Nurse Practitioner Family; Emergency Provider Emergency Medicine; Family Provider Orthopaedic Surgery; PCP Family Medicine
DX: I82.401 Acute embolism and thrombosis of unspecified deep veins of right lower extremity (principal); Z79.82 Long term (current) use of aspirin; Z96.641 Presence of right artificial hip joint
CPT/HCPCS: 36415; 80053; 85025; 85610; 85730; 93971; 99282; 99283

== ENCOUNTER 2019-02-17 14:06 | Emergency (ER) | payer MEDICARE, BC, SELFPAY ==
[2019-01-30 10:06] VITALS: BMI 34.9
[2019-02-17 14:14] VITALS: BP 132/73; PULSE 75; RESP 16; TEMP 36.8; O2SAT 99; BMI 35.4
[2019-02-17 15:45] VITALS: BP 137/69; PULSE 80; RESP 15; O2SAT 98
--- NOTE | 2019-02-17 16:01 | PC.NURSE ---
Patient had hip surgery was taken off of her hormone replacement for two days. Noticed small spotting of blood from vagina on wednesday before dx with DVT and started on xeralto. Patient states she has ongoing vaginal bleeding one pad every 2-3hrs. Not saturating pad, no large clots. Denies lightheadedness.
--- NOTE | 2019-02-17 16:04 | DI.US.S_ITS ---
PROCEDURE: US PELVIC COMPLETE INDICATIONS: POST MENOPAUSAL BLEEDING TECHNIQUE: Real-time scanning was performed of the pelvic organs, with image documentation. The patient declined transvaginal scanning. COMPARISON: [facility], , US PERIPH VENOUS LOW EXTREM RT, 02/14/2019, 18:10. [facility], , PELVIC COMPLETE, 09/18/2013, 9:10. FINDINGS: Transabdominal scanning: Limited scanning through the kidneys shows no hydronephrosis. No pathologic free abdominal or pelvic fluid. Endovaginal scanning: Uterus: Uterus is normal in size at 7.4 x 3.6 x 4.3 cm. The endometrium measures 9.5 mm in combined thickness. Ovaries: History of bilateral oophorectomy is given. No adnexal masses are seen. IMPRESSION: The endometrial stripe is thickened in this patient with a given history of postmenopausal bleeding. Differential diagnosis includes endometrial neoplasm and endometrial hyperplasia. Recommend correlation with endometrial histology, as clinically appropriate. (A history of hormone replacement is given. However, the degree of endometrial stripe thickening remains worrisome, even in the face of known hormone replacement therapy) Dictated by: Destin Ward M.D. on 02/17/2019 at 16:01 Approved by: Destin Ward M.D. on 02/17/2019 at 16:05
[2019-02-17 16:29] LABS: Add Manual Diff / Slide Review NO; Basophils Absolute Auto 100 /uL (0-100); Basophils Percent Auto 1.2 % (0-2); Eosinophils Absolute Auto 300 /uL (0-450); Hematocrit 33.3 % (36-46); Hemoglobin 10.7 g/dL (12.0-16.0); Lymphocytes Absolute Auto 1700 /uL (1100-4500); Lymphocytes Percent Auto 18.8 % (25-40); Mean Corpuscular HGB Conc 32.3 % (30-36); Mean Corpuscular Hemoglobin 29.3 PG (26-34); Mean Corpuscular Volume 90.7 fL (80-100); Monocytes Absolute Auto 800 /uL (0-900); Monocytes Percent Auto 9.3 % (3-14); Neutrophils Absolute Auto 6100 /uL (1500-7000); Neutrophils Percent Auto 67.7 % (50-75); Platelet Count 409 X10^3/uL (150-400); Red Blood Cell Count 3.67 X10^6/uL (4.0-5.2); Red Cell Distribution Width 14.9 % (11.6-14.8)
[2019-02-17 16:36] LABS: INR 1.5 (0.9-1.3); Prothrombin Time 16.9 SECONDS (10.1-12.7)
[2019-02-17 16:39] LABS: PTT Partial Thromboplastin Tim 33 SECONDS (26.4-36.2)
[2019-02-17 16:43] LABS: Alanine Aminotransferase 12 IU/L (9-52); Albumin Globulin Ratio 1.2 (1.0-2.8); Alkaline Phosphatase 100 U/L (38-126); Aspartate Aminotransferase 16 IU/L (14-36); BUN Creatinine Ratio 29.2 (6-22); Bilirubin Total 0.3 mg/dL (0.2-1.3); Blood Urea Nitrogen 35 mg/dL (7-17); Calcium 9.3 mg/dL (8.4-10.2); Carbon Dioxide 26 mmol/L (22-32); Chloride 100 mmol/L (98-107); Estimated Glomerular Filt Rate 44.2 mL/min (>60); Globulin 3.3 g/dL (1.7-4.1); Glucose 127 mg/dL (80-110); HEMOLYSIS < 15 (0-50); Potassium 4.3 mmol/L (3.4-5.1); Sodium 136 mmol/L (137-145); Total Protein 7.3 g/dL (6.3-8.2)
--- NOTE | 2019-02-17 18:02 | ED.FEMALEGU ---
HPI - Female Genitourinary <Clarita Harris, [employer] HEAD-BC - Last Filed: 02/17/19 19:03> General Chief complaint: Vaginal Bleeding Stated complaint: Vaginal Bleeding Time Seen by Provider: 02/17/19 15:54 Source: patient and family Mode of arrival: ambulatory Limitations: no limitations History of Present Illness HPI Narrative: The patient is a 74-year-old female presents with her for chief complaint of vaginal bleeding postmenopausal. She has a recent hip replacement, was placed on Xarelto and noticed an increase in vaginal bleeding. She did stop her hormones for 2 days. She denies any abdominal pain nausea vomiting diarrhea fever chest pain shortness of breath. she states she has 6 doses of Xarelto on board. She denies any chest pain or shortness of breath. patient denies passing clots. She states that she has gone through a panty liner or half of a pad. Denies any excessive bleeding. Related Data Home Medications Medication Instructions Recorded Confirmed hydrocodone-acetaminophen 1 tab PO TID PRN 06/24/18 01/30/19 turmeric root extract 500 mg 1,000 mg PO DAILY 07/01/18 01/30/19 capsule calcium carbonate-vitamin D3 600 1 cap PO DAILY cap 12/23/18 01/30/19 mg (1,500 mg)-400 unit capsule cinnamon bark 500 mg capsule 1 tab PO BID cap 12/23/18 01/30/19 glucosamine 250 [id number] 200 1 tab PO TID tab 12/23/18 01/30/19 mg-D3 1,500 onrj-[id number]-herbs tablet omega-3 fatty acids 1,000 mg 1,000 mg PO BID 12/23/18 01/30/19 capsule aspirin 3 tab PO TID 01/18/19 01/30/19 clobetasol [Temovate] 1 charles TOPICAL HS PRN 01/18/19 01/18/19 doxycycline hyclate 50 mg PO BEDTIME 01/18/19 02/17/19 potassium chloride [Klor-Con 8] 16 meq PO DAILY 01/18/19 02/17/19 amlodipine [Norvasc] 5 mg PO DAILY 02/17/19 02/17/19 atenolol 50 mg PO DAILY 02/17/19 02/17/19 estradiol-norethindrone acet 1 tab PO DAILY 02/17/19 02/17/19 [Activella] ketoconazole 1 applic TOPICAL DIRECTED 02/17/19 02/17/19 levothyroxine [Synthroid] 88 mcg PO DAILY 02/17/19 02/17/19 lisinopril-hydrochlorothiazide 2 tab PO DAILY 02/17/19 02/17/19 naloxone [Narcan] 1 spray INTRANASAL DIRECTED 02/17/19 02/17/19 Previous Rx's Medication Instructions Recorded Disabled Parking Permit #1 ea 10/05/18 tramadol 50 mg tablet 100 mg PO Q6HP PRN #240 tab 12/09/18 oxycodone 10 mg PO Q3HR PRN #30 tab 02/02/19 rivaroxaban [Xarelto] 15 mg PO BID 21 Days #42 tab 02/14/19 Allergies Allergy/AdvReac Type Severity Reaction Status Date / Time Iodine and Iodide Containing Allergy Severe ANAPHYLAXIS Verified 02/17/19 14:14 Produc [IODINE AND IODIDE CONTAINING PRODUC] adhesive [ADHESIVE] Allergy Mild LOCAL RASH Verified 02/17/19 14:14 enalapril [ENALAPRIL] Allergy Mild WHOLE BODY Verified 02/17/19 14:14 EDEMA Review of Systems <MAIK Lopez - Last Filed: 02/17/19 19:03> Review of Systems GENERAL: Denies chills, fatigue, malaise, fever, sweats. HEENT: Denies sinus pain, ear pain, sore throat, difficulty swallowing, dizziness. RESPIRATORY: Denies dyspnea, cough, wheezing, hemoptysis, sputum. CARDIOVASCULAR: Denies chest pain, palpitations, orthopnea, edema, GASTROINTESTINAL: Denies nausea, vomiting, abdominal pain, diarrhea, constipation, melena. : See HPI MUSCULOSKELETAL: denies weakness, joint pain, or bony pain SKIN: Denies rash, skin lesions, or other NEUROLOGIC: Denies weakness, headache, numbness, change in speech, confusion, seizures, incoordination. PSYCHIATRIC: No concerning psychosocial issues. 12 point review of systems is negative except for those stated above PFSH <MAIK Lopez - Last Filed: 02/17/19 19:03> Social History Smoking Status: Never smoker alcohol intake: never substance use type: does not use Exam <MAIK Lopez - Last Filed: 02/17/19 19:03> Narrative Exam Narrative: GENERAL: Elderly female i no acute distress HEAD: Atraumatic. Normocephalic. No temporal or scalp tenderness. EYES: Pupils equal round and reactive. Extraocular motions intact. No scleral icterus. No injection or drainage. ENT: Nose without bleeding, purulent drainage or septal hematoma. Throat without erythema, tonsillar hypertrophy or exudate. Uvula midline. Airway patent. NECK: Trachea midline. No JVD or lymphadenopathy. Supple, nontender, no meningeal signs. CARDIOVASCULAR: Regular rate and rhythm without murmurs, gallops, or rubs. RESPIRATORY: Clear to auscultation. Breath sounds equal bilaterally. No wheezes, rales, or rhonchi. No cough. No increased respiratory effort. GASTROINTESTINAL: Abdomen soft, non-tender, nondistended. No hepato-splenomegaly, or palpable masses. No guarding. active bowel sounds. no pain. BACK: Nontender without deformity or crepitance. No flank tenderness. NEURO: AOx3. SKIN: No rash or erythema. Initial Vital Signs Initial Vital Signs: Vital Signs Temperature 98.2 F 02/17/19 14:14 Pulse Rate 75 02/17/19 14:14 Respiratory Rate 16 02/17/19 14:14 Blood Pressure 132/73 02/17/19 14:14 Pulse Oximetry 99 02/17/19 14:14 <Clarita Santos DO - Last Filed: 02/17/19 19:08> Initial Vital Signs Initial Vital Signs: Vital Signs Temperature 98.2 F 02/17/19 14:14 Pulse Rate 75 02/17/19 14:14 Respiratory Rate 16 02/17/19 14:14 Blood Pressure 132/73 02/17/19 14:14 Pulse Oximetry 99 02/17/19 14:14 Course <MAIK Lopez - Last Filed: 02/17/19 19:03> Orders Ordered: ED Orders 02/17/19 16:04 US pelvic complete Stat 02/17/19 16:22 Complete Blood Count AUTO DIFF Stat Comprehensive Metabolic Panel Stat Partial Thromboplastin Time Stat Prothrombin Time INR Stat Vital Signs - 8 hr 02/17/19 14:14 02/17/19 15:45 02/17/19 18:08 Temperature 98.2 F Pulse Rate 75 80 72 Respiratory Rate 16 15 15 Blood Pressure 132/73 104/72 Blood Pressure [Left Arm] 137/69 Pulse Oximetry 99 98 100 <Clarita Santos DO - Last Filed: 02/17/19 19:08> Orders Ordered: ED Orders 02/17/19 16:04 US pelvic complete Stat 02/17/19 16:22 Complete Blood Count AUTO DIFF Stat Comprehensive Metabolic Panel Stat Partial Thromboplastin Time Stat Prothrombin Time INR Stat Vital Signs - 8 hr 02/17/19 14:14 02/17/19 15:45 02/17/19 18:08 Temperature 98.2 F Pulse Rate 75 80 72 Respiratory Rate 16 15 15 Blood Pressure 132/73 104/72 Blood Pressure [Left Arm] 137/69 Pulse Oximetry 99 98 100 MDM - Female Genitourinary <ZEINAB Lopez-BC - Last Filed: 02/17/19 19:03> Lab Data Result diagrams: 02/17/19 16:22 02/17/19 16:22 Lab Results 02/17/19 02/17/19 02/17/19 Range/Units 16:22 16:22 16:22 WBC 9.0 (4.5-11.0) X10^3/uL RBC 3.67 L (4.0-5.2) X10^6/uL Hgb 10.7 L (12.0-16.0) g/dL Hct 33.3 L (36-46) % MCV 90.7 (80-100) fL MCH 29.3 (26-34) PG MCHC 32.3 (30-36) % RDW 14.9 H (11.6-14.8) % Plt Count 409 H (150-400) X10^3/uL Neut % (Auto) 67.7 (50-75) % Lymph % (Auto) 18.8 L (25-40) % [place] % (Auto) 9.3 (3-14) % Eos % (Auto) 3.0 (2-4) % Baso % (Auto) 1.2 (0-2) % Neut # (Auto) 6100 (6136-3283) /uL Lymph # (Auto) 1700 (6109-1689) /uL [place] # (Auto) 800 (0-900) /uL Eos # (Auto) 300 (0-450) /uL Baso # (Auto) 100 (0-100) /uL PT 16.9 H D (10.1-12.7) SECONDS INR 1.5 H (0.9-1.3) APTT 33 D (26.4-36.2) SECONDS Sodium 136 L (137-145) mmol/L Potassium 4.3 (3.4-5.1) mmol/L Chloride 100 (98-107) mmol/L Carbon Dioxide 26 (22-32) mmol/L BUN 35 H (7-17) mg/dL Creatinine 1.20 H (0.52-1.04) mg/dL Estimated GFR 44.2 L (>60) mL/min BUN/Creatinine Ratio 29.2 H (6-22) Glucose 127 H (80-110) mg/dL Calcium 9.3 (8.4-10.2) mg/dL Total Bilirubin 0.3 (0.2-1.3) mg/dL AST 16 (14-36) IU/L ALT 12 (9-52) IU/L Alkaline Phosphatase 100 (38-126) U/L Total Protein 7.3 (6.3-8.2) g/dL Albumin 4.0 (3.5-5.0) g/dL Globulin 3.3 (1.7-4.1) g/dL Albumin/Globulin Ratio 1.2 (1.0-2.8) Imaging Data Pelvic ultrasound: Radiologist's impression: [address] [address] Ultrasound Report Signed Patient: Soha Harp EMR#: [id number] : 7Acct:[id number] Age/Sex: 74 / FDate of Service: 02/17/19 Loc: ED Accession Number: [id number] Procedure: US pelvic complete Ordering Provider: Clarita Harris-BC PROCEDURE: US PELVIC COMPLETE INDICATIONS: POST MENOPAUSAL BLEEDING TECHNIQUE: Real-time scanning was performed of the pelvic organs, with image documentation. The patient declined transvaginal scanning. COMPARISON: [facility], US, US PERIPH VENOUS LOW EXTREM RT, 02/14/2019, 18:10. [facility], , PELVIC COMPLETE, 09/18/2013, 9:10. FINDINGS: Transabdominal scanning: Limited scanning through the kidneys shows no hydronephrosis. No pathologic free abdominal or pelvic fluid. Endovaginal scanning: Uterus: Uterus is normal in size at 7.4 x 3.6 x 4.3 cm. The endometrium measures 9.5 mm in combined thickness. Ovaries: History of bilateral oophorectomy is given. No adnexal masses are seen. IMPRESSION: The endometrial stripe is thickened in this patient with a given history of postmenopausal bleeding. Differential diagnosis includes endometrial neoplasm and endometrial hyperplasia. Recommend correlation with endometrial histology, as clinically appropriate. (A history of hormone replacement is given. However, the degree of endometrial stripe thickening remains worrisome, even in the face of known hormone replacement therapy) Dictated by: Destin Ward M.D. on 02/17/2019 at 16:01 Approved by: Destin Ward M.D. on 02/17/2019 at 16:05 [facility] Narrative Medical decision making narrative: The patient is a 74-year-old female with postmenopausal vaginal bleeding. Ultrasound was straight is a thickened endometrium at 9.5 mm. Given the possible serious etiology of this finding, I spoke with Dr. Castro, who suggested that the patient follow up as soon as possible for an endometrial biopsy. Patient stated understanding. Bleeding could be related to recent changes in hormone dosing. Patient states understanding a possible seriousness of condition. Dr. Castro state they will expedite her endometrial biopsy. Patient states understanding of return precautions of dizziness, acute concerns. States understanding of follow-up care. No questions or concerns upon discharge. <Clarita Santos, DO - Last Filed: 02/17/19 19:08> Lab Data Lab Results 02/17/19 02/17/19 02/17/19 Range/Units 16:22 16:22 16:22 WBC 9.0 (4.5-11.0) X10^3/uL RBC 3.67 L (4.0-5.2) X10^6/uL Hgb 10.7 L (12.0-16.0) g/dL Hct 33.3 L (36-46) % MCV 90.7 (80-100) fL MCH 29.3 (26-34) PG MCHC 32.3 (30-36) % RDW 14.9 H (11.6-14.8) % Plt Count 409 H (150-400) X10^3/uL Neut % (Auto) 67.7 (50-75) % Lymph % (Auto) 18.8 L (25-40) % [place] % (Auto) 9.3 (3-14) % Eos % (Auto) 3.0 (2-4) % Baso % (Auto) 1.2 (0-2) % Neut # (Auto) 6100 (7019-0028) /uL Lymph # (Auto) 1700 (9269-0049) /uL [place] # (Auto) 800 (0-900) /uL Eos # (Auto) 300 (0-450) /uL Baso # (Auto) 100 (0-100) /uL PT 16.9 H D (10.1-12.7) SECONDS INR 1.5 H (0.9-1.3) APTT 33 D (26.4-36.2) SECONDS Sodium 136 L (137-145) mmol/L Potassium 4.3 (3.4-5.1) mmol/L Chloride 100 (98-107) mmol/L Carbon Dioxide 26 (22-32) mmol/L BUN 35 H (7-17) mg/dL Creatinine 1.20 H (0.52-1.04) mg/dL Estimated GFR 44.2 L (>60) mL/min BUN/Creatinine Ratio 29.2 H (6-22) Glucose 127 H (80-110) mg/dL Calcium 9.3 (8.4-10.2) mg/dL Total Bilirubin 0.3 (0.2-1.3) mg/dL AST 16 (14-36) IU/L ALT 12 (9-52) IU/L Alkaline Phosphatase 100 (38-126) U/L Total Protein 7.3 (6.3-8.2) g/dL Albumin 4.0 (3.5-5.0) g/dL Globulin 3.3 (1.7-4.1) g/dL Albumin/Globulin Ratio 1.2 (1.0-2.8) Discharge Plan Departure Patient Disposition: Home Clinical Impression: Abnormal vaginal bleeding Discharge Date/Time: 02/17/19 18:11 Interventions: ED Discharge Assessment Last Done: 02/17/19 18:08 Instructions: DI for Vaginal Bleeding Activity Restrictions/Additional Instructions: I have spoken with Dr Castro regarding your vaginal bleeding. Please follow up with their office as soon as possible for a biopsy. I have given you their contact information. Please come back to the emergency department for any acute concerns such as dizziness chest pain shortness of breath etc. It is likely that this bleeding could be from the change in her hormone dosage. However there can be serious etiologies that require biopsy. Please come back to emergency department for any acute concerns. Prescriptions: No Action Disabled Parking Permit Qty: 1 RF: 0 tramadol 50 mg tablet 100 mg PO Q6HP PRN (Reason: pain) Qty: 240 RF: 2 turmeric root extract 500 mg capsule 1,000 mg PO DAILY RF: 0 omega-3 fatty acids [Fish Oil Concentrate] 1,000 mg capsule 1,000 mg PO BID RF: 0 cinnamon bark 500 mg capsule 1 tab PO BID RF: 0 [id number] 250 mg-200 mg- 1,500 unit tablet 1 tab PO TID RF: 0 calcium carbonate-vitamin D3 [Calcium 600 with Vitamin D3] 600 mg(1,500mg) -400 unit capsule 1 cap PO DAILY RF: 0 hydrocodone-acetaminophen 5-325 mg Tablet 1 tab PO TID PRN (Reason: pain) RF: 0 aspirin 325 mg Tablet 3 tab PO TID RF: 0 doxycycline hyclate 50 mg capsule 50 mg PO BEDTIME RF: 0 clobetasol [Temovate] 0.05 % cream 1 charles Topical HS PRN (Reason: Dry Skin) RF: 0 potassium chloride [Klor-Con 8] 8 mEq tablet extended release 16 meq PO DAILY RF: 0 oxycodone 10 mg Tablet 10 mg PO Q3HR PRN (Reason: Pain, Severe (7-10)) Qty: 30 RF: 0 Xarelto 15 mg tablet 15 mg PO BID 21 Days Qty: 42 RF: 0 ketoconazole 2 % shampoo 1 applic topical DIRECTED RF: 0 levothyroxine [Synthroid] 88 mcg tablet 88 mcg PO DAILY RF: 0 Narcan 4 mg/actuation spray,non-aerosol 1 spray Intranasal DIRECTED RF: 0 lisinopril-hydrochlorothiazide 20-12.5 mg tablet 2 tab PO DAILY RF: 0 amlodipine [Norvasc] 5 mg tablet 5 mg PO DAILY RF: 0 atenolol 50 mg tablet 50 mg PO DAILY RF: 0 estradiol-norethindrone acet [Activella] 0.5-0.1 mg tablet 1 tab PO DAILY RF: 0 Referrals: Sunita Lopez MD [Physician] - Aixa Mejias MD [Physician] - Kevin Castro MD [Physician] - Gina Portillo DO [Primary Care Provider] - <Clarita Santos DO - Last Filed: 02/17/19 19:08> Cosign ED Attending Cosignature Attestation: I was immediately available in the department for consultation, case was discussed and agree with plan for short term follow up with national accounts recruiter for evalution/biopsy. This documentation has been reviewed and I agree with assessment and plan. Supervised by Clarita Santos DO
--- NOTE | 2019-02-17 18:06 | ED_ITS ---
HPI - Female Genitourinary <Clarita Harris, CLERK SPECIALIST-BC - Last Filed: 02/17/19 19:03> General Chief complaint: Vaginal Bleeding Stated complaint: Vaginal Bleeding Time Seen by Provider: 02/17/19 15:54 Source: patient and family Mode of arrival: ambulatory Limitations: no limitations History of Present Illness HPI Narrative: The patient is a 74-year-old female presents with her for chief complaint of vaginal bleeding postmenopausal. She has a recent hip replacement, was placed on Xarelto and noticed an increase in vaginal bleeding. She did stop her hormones for 2 days. She denies any abdominal pain nausea vomiting diarrhea fever chest pain shortness of breath. she states she has 6 doses of Xarelto on board. She denies any chest pain or shortness of breath. patient denies passing clots. She states that she has gone through a panty liner or half of a pad. Denies any excessive bleeding. Related Data Home Medications Medication Instructions Recorded Confirmed hydrocodone-acetaminophen 1 tab PO TID PRN 06/24/18 01/30/19 turmeric root extract 500 mg 1,000 mg PO DAILY 07/01/18 01/30/19 capsule calcium carbonate-vitamin D3 600 1 cap PO DAILY cap 12/23/18 01/30/19 mg (1,500 mg)-400 unit capsule cinnamon bark 500 mg capsule 1 tab PO BID cap 12/23/18 01/30/19 glucosamine 250 [id number] 200 1 tab PO TID tab 12/23/18 01/30/19 mg-D3 1,500 oivz-Q-nsujn-herbs tablet omega-3 fatty acids 1,000 mg 1,000 mg PO BID 12/23/18 01/30/19 capsule aspirin 3 tab PO TID 01/18/19 01/30/19 clobetasol [Temovate] 1 charles TOPICAL HS PRN 01/18/19 01/18/19 doxycycline hyclate 50 mg PO BEDTIME 01/18/19 02/17/19 potassium chloride [Klor-Con 8] 16 meq PO DAILY 01/18/19 02/17/19 amlodipine [Norvasc] 5 mg PO DAILY 02/17/19 02/17/19 atenolol 50 mg PO DAILY 02/17/19 02/17/19 estradiol-norethindrone acet 1 tab PO DAILY 02/17/19 02/17/19 [Activella] ketoconazole 1 applic TOPICAL DIRECTED 02/17/19 02/17/19 levothyroxine [Synthroid] 88 mcg PO DAILY 02/17/19 02/17/19 lisinopril-hydrochlorothiazide 2 tab PO DAILY 02/17/19 02/17/19 naloxone [Narcan] 1 spray INTRANASAL DIRECTED 02/17/19 02/17/19 Previous Rx's Medication Instructions Recorded Disabled Parking Permit #1 ea 10/05/18 tramadol 50 mg tablet 100 mg PO Q6HP PRN #240 tab 12/09/18 oxycodone 10 mg PO Q3HR PRN #30 tab 02/02/19 rivaroxaban [Xarelto] 15 mg PO BID 21 Days #42 tab 02/14/19 Allergies Allergy/AdvReac Type Severity Reaction Status Date / Time Iodine and Iodide Containing Allergy Severe ANAPHYLAXIS Verified 02/17/19 14:14 Produc [IODINE AND IODIDE CONTAINING PRODUC] adhesive [ADHESIVE] Allergy Mild LOCAL RASH Verified 02/17/19 14:14 enalapril [ENALAPRIL] Allergy Mild WHOLE BODY Verified 02/17/19 14:14 EDEMA Review of Systems <MAIK Lopez - Last Filed: 02/17/19 19:03> Review of Systems GENERAL: Denies chills, fatigue, malaise, fever, sweats. HEENT: Denies sinus pain, ear pain, sore throat, difficulty swallowing, dizziness. RESPIRATORY: Denies dyspnea, cough, wheezing, hemoptysis, sputum. CARDIOVASCULAR: Denies chest pain, palpitations, orthopnea, edema, GASTROINTESTINAL: Denies nausea, vomiting, abdominal pain, diarrhea, constipation, melena. : See HPI MUSCULOSKELETAL: denies weakness, joint pain, or bony pain SKIN: Denies rash, skin lesions, or other NEUROLOGIC: Denies weakness, headache, numbness, change in speech, confusion, seizures, incoordination. PSYCHIATRIC: No concerning psychosocial issues. 12 point review of systems is negative except for those stated above PFSH <MAIK Lopez - Last Filed: 02/17/19 19:03> Social History Smoking Status: Never smoker alcohol intake: never substance use type: does not use Exam <MAIK Lopez - Last Filed: 02/17/19 19:03> Narrative Exam Narrative: GENERAL: Elderly female i no acute distress HEAD: Atraumatic. Normocephalic. No temporal or scalp tenderness. EYES: Pupils equal round and reactive. Extraocular motions intact. No scleral icterus. No injection or drainage. ENT: Nose without bleeding, purulent drainage or septal hematoma. Throat without erythema, tonsillar hypertrophy or exudate. Uvula midline. Airway patent. NECK: Trachea midline. No JVD or lymphadenopathy. Supple, nontender, no meningeal signs. CARDIOVASCULAR: Regular rate and rhythm without murmurs, gallops, or rubs. RESPIRATORY: Clear to auscultation. Breath sounds equal bilaterally. No wheezes, rales, or rhonchi. No cough. No increased respiratory effort. GASTROINTESTINAL: Abdomen soft, non-tender, nondistended. No hepato- splenomegaly, or palpable masses. No guarding. active bowel sounds. no pain. BACK: Nontender without deformity or crepitance. No flank tenderness. NEURO: AOx3. SKIN: No rash or erythema. Initial Vital Signs Initial Vital Signs: Vital Signs Temperature 98.2 F 02/17/19 14:14 Pulse Rate 75 02/17/19 14:14 Respiratory Rate 16 02/17/19 14:14 Blood Pressure 132/73 02/17/19 14:14 Pulse Oximetry 99 02/17/19 14:14 <Clarita Santos DO - Last Filed: 02/17/19 19:08> Initial Vital Signs Initial Vital Signs: Vital Signs Temperature 98.2 F 02/17/19 14:14 Pulse Rate 75 02/17/19 14:14 Respiratory Rate 16 02/17/19 14:14 Blood Pressure 132/73 02/17/19 14:14 Pulse Oximetry 99 02/17/19 14:14 Course <MAIK Lopez - Last Filed: 02/17/19 19:03> Orders Ordered: ED Orders 02/17/19 16:04 US pelvic complete Stat 02/17/19 16:22 Complete Blood Count AUTO DIFF Stat Comprehensive Metabolic Panel Stat Partial Thromboplastin Time Stat Prothrombin Time INR Stat Vital Signs - 8 hr 02/17/19 14:14 02/17/19 15:45 02/17/19 18:08 Temperature 98.2 F Pulse Rate 75 80 72 Respiratory Rate 16 15 15 Blood Pressure 132/73 104/72 Blood Pressure [Left Arm] 137/69 Pulse Oximetry 99 98 100 <Clarita Santos DO - Last Filed: 02/17/19 19:08> Orders Ordered: ED Orders 02/17/19 16:04 US pelvic complete Stat 02/17/19 16:22 Complete Blood Count AUTO DIFF Stat Comprehensive Metabolic Panel Stat Partial Thromboplastin Time Stat Prothrombin Time INR Stat Vital Signs - 8 hr 02/17/19 14:14 02/17/19 15:45 02/17/19 18:08 Temperature 98.2 F Pulse Rate 75 80 72 Respiratory Rate 16 15 15 Blood Pressure 132/73 104/72 Blood Pressure [Left Arm] 137/69 Pulse Oximetry 99 98 100 MDM - Female Genitourinary <ZEINAB Lopez-BC - Last Filed: 02/17/19 19:03> Lab Data Result diagrams: 02/17/19 16:22 02/17/19 16:22 Lab Results 02/17/19 02/17/19 02/17/19 Range/Units 16:22 16:22 16:22 WBC 9.0 (4.5-11.0) X10^3/uL RBC 3.67 L (4.0-5.2) X10^6/uL Hgb 10.7 L (12.0-16.0) g/dL Hct 33.3 L (36-46) % MCV 90.7 (80-100) fL MCH 29.3 (26-34) PG MCHC 32.3 (30-36) % RDW 14.9 H (11.6-14.8) % Plt Count 409 H (150-400) X10^3/uL Neut % (Auto) 67.7 (50-75) % Lymph % (Auto) 18.8 L (25-40) % [place] % (Auto) 9.3 (3-14) % Eos % (Auto) 3.0 (2-4) % Baso % (Auto) 1.2 (0-2) % Neut # (Auto) 6100 (9602-1659) /uL Lymph # (Auto) 1700 (6586-9796) /uL [place] # (Auto) 800 (0-900) /uL Eos # (Auto) 300 (0-450) /uL Baso # (Auto) 100 (0-100) /uL PT 16.9 H D (10.1-12.7) SECONDS INR 1.5 H (0.9-1.3) APTT 33 D (26.4-36.2) SECONDS Sodium 136 L (137-145) mmol/L Potassium 4.3 (3.4-5.1) mmol/L Chloride 100 (98-107) mmol/L Carbon Dioxide 26 (22-32) mmol/L BUN 35 H (7-17) mg/dL Creatinine 1.20 H (0.52-1.04) mg/dL Estimated GFR 44.2 L (>60) mL/min BUN/Creatinine Ratio 29.2 H (6-22) Glucose 127 H (80-110) mg/dL Calcium 9.3 (8.4-10.2) mg/dL Total Bilirubin 0.3 (0.2-1.3) mg/dL AST 16 (14-36) IU/L ALT 12 (9-52) IU/L Alkaline Phosphatase 100 (38-126) U/L Total Protein 7.3 (6.3-8.2) g/dL Albumin 4.0 (3.5-5.0) g/dL Globulin 3.3 (1.7-4.1) g/dL Albumin/Globulin Ratio 1.2 (1.0-2.8) Imaging Data Pelvic ultrasound: Radiologist's impression: [address] [address] Ultrasound Report Signed Patient: Soha Harp EMR#: [id number] : 7Acct:[id number] Age/Sex: 74 / FDate of Service: 02/17/19 Loc: ED Accession Number: [id number] Procedure: US pelvic complete Ordering Provider: Clarita Harris-BC PROCEDURE: US PELVIC COMPLETE INDICATIONS: POST MENOPAUSAL BLEEDING TECHNIQUE: Real-time scanning was performed of the pelvic organs, with image documentation. The patient declined transvaginal scanning. COMPARISON: [facility], US, US PERIPH VENOUS LOW EXTREM RT, 02/14/2019, 18:10. [facility], , PELVIC COMPLETE, 09/18/2013, 9:10. FINDINGS: Transabdominal scanning: Limited scanning through the kidneys shows no hydronephrosis. No pathologic free abdominal or pelvic fluid. Endovaginal scanning: Uterus: Uterus is normal in size at 7.4 x 3.6 x 4.3 cm. The endometrium measures 9.5 mm in combined thickness. Ovaries: History of bilateral oophorectomy is given. No adnexal masses are seen. IMPRESSION: The endometrial stripe is thickened in this patient with a given history of postmenopausal bleeding. Differential diagnosis includes endometrial neoplasm a nd endometrial hyperplasia. Recommend correlation with endometrial histology, as clinically appropriate. (A history of hormone replacement is given. However, the degree of endometrial stripe thickening remains worrisome, even in the face of known hormone replacement therapy) Dictated by: Destin Ward M.D. on 02/17/2019 at 16:01 Approved by: Destin Ward M.D. on 02/17/2019 at 16:05 [facility] Narrative Medical decision making narrative: The patient is a 74-year-old female with postmenopausal vaginal bleeding. Ultrasound was straight is a thickened endometrium at 9.5 mm. Given the possible serious etiology of this finding, I spoke with Dr. Castro, who suggested that the patient follow up as soon as possible for an endometrial biopsy. Patient stated understanding. Bleeding could be related to recent changes in hormone dosing. Patient states understanding a possible seriousness of condition. Dr. Castro state they will expedite her endometrial biopsy. Patient states understanding of return precautions of dizziness, acute concerns. States understanding of follow-up care. No questions or concerns upon discharge. <Clarita Santos, DO - Last Filed: 02/17/19 19:08> Lab Data Lab Results 02/17/19 02/17/19 02/17/19 Range/Units 16:22 16:22 16:22 WBC 9.0 (4.5-11.0) X10^3/uL RBC 3.67 L (4.0-5.2) X10^6/uL Hgb 10.7 L (12.0-16.0) g/dL Hct 33.3 L (36-46) % MCV 90.7 (80-100) fL MCH 29.3 (26-34) PG MCHC 32.3 (30-36) % RDW 14.9 H (11.6-14.8) % Plt Count 409 H (150-400) X10^3/uL Neut % (Auto) 67.7 (50-75) % Lymph % (Auto) 18.8 L (25-40) % [place] % (Auto) 9.3 (3-14) % Eos % (Auto) 3.0 (2-4) % Baso % (Auto) 1.2 (0-2) % Neut # (Auto) 6100 (3041-9117) /uL Lymph # (Auto) 1700 (4271-1384) /uL [place] # (Auto) 800 (0-900) /uL Eos # (Auto) 300 (0-450) /uL Baso # (Auto) 100 (0-100) /uL PT 16.9 H D (10.1-12.7) SECONDS INR 1.5 H (0.9-1.3) APTT 33 D (26.4-36.2) SECONDS Sodium 136 L (137-145) mmol/L Potassium 4.3 (3.4-5.1) mmol/L Chloride 100 (98-107) mmol/L Carbon Dioxide 26 (22-32) mmol/L BUN 35 H (7-17) mg/dL Creatinine 1.20 H (0.52-1.04) mg/dL Estimated GFR 44.2 L (>60) mL/min BUN/Creatinine Ratio 29.2 H (6-22) Glucose 127 H (80-110) mg/dL Calcium 9.3 (8.4-10.2) mg/dL Total Bilirubin 0.3 (0.2-1.3) mg/dL AST 16 (14-36) IU/L ALT 12 (9-52) IU/L Alkaline Phosphatase 100 (38-126) U/L Total Protein 7.3 (6.3-8.2) g/dL Albumin 4.0 (3.5-5.0) g/dL Globulin 3.3 (1.7-4.1) g/dL Albumin/Globulin Ratio 1.2 (1.0-2.8) Discharge Plan Departure Patient Disposition: Home Clinical Impression: Abnormal vaginal bleeding Discharge Date/Time: 02/17/19 18:11 Interventions: ED Discharge Assessment Last Done: 02/17/19 18:08 Instructions: DI for Vaginal Bleeding Activity Restrictions/Additional Instructions: I have spoken with Dr Castro regarding your vaginal bleeding. Please follow up with their office as soon as possible for a biopsy. I have given you their contact information. Please come back to the emergency department for any acute concerns such as dizziness chest pain shortness of breath etc. It is likely that this bleeding could be from the change in her hormone dosage. However there can be serious etiologies that require biopsy. Please come back to emergency department for any acute concerns. Prescriptions: No Action Disabled Parking Permit Qty: 1 RF: 0 tramadol 50 mg tablet 100 mg PO Q6HP PRN (Reason: pain) Qty: 240 RF: 2 turmeric root extract 500 mg capsule 1,000 mg PO DAILY RF: 0 omega-3 fatty acids [Fish Oil Concentrate] 1,000 mg capsule 1,000 mg PO BID RF: 0 cinnamon bark 500 mg capsule 1 tab PO BID RF: 0 [id number] 250 mg-200 mg- 1,500 unit tablet 1 tab PO TID RF: 0 calcium carbonate-vitamin D3 [Calcium 600 with Vitamin D3] 600 mg(1,500mg) - 400 unit capsule 1 cap PO DAILY RF: 0 hydrocodone-acetaminophen 5-325 mg Tablet 1 tab PO TID PRN (Reason: pain) RF: 0 aspirin 325 mg Tablet 3 tab PO TID RF: 0 doxycycline hyclate 50 mg capsule 50 mg PO BEDTIME RF: 0 clobetasol [Temovate] 0.05 % cream 1 charles Topical HS PRN (Reason: Dry Skin) RF: 0 potassium chloride [Klor-Con 8] 8 mEq tablet extended release 16 meq PO DAILY RF: 0 oxycodone 10 mg Tablet 10 mg PO Q3HR PRN (Reason: Pain, Severe (7-10)) Qty: 30 RF: 0 Xarelto 15 mg tablet 15 mg PO BID 21 Days Qty: 42 RF: 0 ketoconazole 2 % shampoo 1 applic topical DIRECTED RF: 0 levothyroxine [Synthroid] 88 mcg tablet 88 mcg PO DAILY RF: 0 Narcan 4 mg/actuation spray,non-aerosol 1 spray Intranasal DIRECTED RF: 0 lisinopril-hydrochlorothiazide 20-12.5 mg tablet 2 tab PO DAILY RF: 0 amlodipine [Norvasc] 5 mg tablet 5 mg PO DAILY RF: 0 atenolol 50 mg tablet 50 mg PO DAILY RF: 0 estradiol-norethindrone acet [Activella] 0.5-0.1 mg tablet 1 tab PO DAILY RF: 0 Referrals: Sunita Lopez MD [Physician] - Aixa Mejias MD [Physician] - Kevin Castro MD [Physician] - Gina Portillo DO [Primary Care Provider] - <Clarita Santos DO - Last Filed: 02/17/19 19:08> Cosign ED Attending Cosignature Attestation: I was immediately available in the department for consultation, case was discussed and agree with plan for short term follow up with pipe inspector for evalution/biopsy. This documentation has been reviewed and I agree with assessment and plan. Supervised by Clarita Santos DO
[2019-02-17 18:08] VITALS: BP 104/72; PULSE 72; RESP 15; O2SAT 100
== END 2019-02-17 18:11 | disposition home or self-care (01) ==
PROVIDERS: Emergency Provider Nurse Practitioner Family; Family Provider Orthopaedic Surgery; PCP Family Medicine
DX: N93.9 Abnormal uterine and vaginal bleeding, unspecified (principal)
CPT/HCPCS: 36415; 76856; 80053; 85025; 85610; 85730; 99283; 99284

== ENCOUNTER → 2019-02-21 15:15 | Outpatient (CLI) | payer MEDICARE, BC, SELFPAY ==
[2019-01-30 10:06] VITALS: BMI 34.9
[2019-02-21 16:03] LABS: Blood Urea Nitrogen 31 mg/dL (7-17); Calcium 9.7 mg/dL (8.4-10.2); Carbon Dioxide 27 mmol/L (22-32); Chloride 100 mmol/L (98-107); Estimated Glomerular Filt Rate 54.5 mL/min (>60); Glucose 102 mg/dL (80-110); HEMOLYSIS < 15 (0-50); Potassium 4.7 mmol/L (3.4-5.1); Sodium 138 mmol/L (137-145)
[2019-02-21 16:20] LABS: Free T3, Triiodothyronine Free 3.71 pg/mL (2.77-5.27)
[2019-02-21 16:33] LABS: Thyroid Stimulating Hormone 2.07 uIU/mL (0.47-4.68)
== END ==
PROVIDERS: Hospitalist; Family Provider Orthopaedic Surgery; PCP Family Medicine; Visit Provider Internal Medicine
DX: E03.9 Hypothyroidism, unspecified (principal); R73.03 Prediabetes; I82.409 Acute embolism and thrombosis of unspecified deep veins of unspecified lower extremity
CPT/HCPCS: 36415; 80048; 83036; 84439; 84443; 84481

== ENCOUNTER → 2019-05-09 13:40 | Outpatient (CLI) | payer MEDICARE, BC, SELFPAY ==
[2019-01-30 10:06] VITALS: BMI 34.9
--- NOTE | 2019-05-09 13:43 | DI.US.S_ITS ---
PROCEDURE: US [facility] VENOUS LOW EXTREM RT INDICATIONS: EVALUATE FOR RESOLUTION OF DEEP VEIN THROMBOSIS TECHNIQUE: Real-time imaging, as well as color and pulse Doppler interrogation, were performed of the lower extremity deep veins from the inguinal ligament to the popliteal fossa. COMPARISON: [facility], , [facility] VENOUS LOW EXTREM RT, 02/14/2019, 18:10. FINDINGS: The common femoral and femoral veins are normally compressible, and free of intraluminal thrombus. Nonocclusive thrombus is visualized within the popliteal vein. Color and pulse Doppler demonstrate normal phasic intraluminal flow within the superior deep veins. There is a 5.0 x 4.5 x 2.5 cm popliteal cyst. This is increased from 4.8 x 4.1 x 2.7 cm on the study dated 02/14/19. IMPRESSION: 1. Persistent nonocclusive thrombus within the right popliteal vein. 2. Slight increase in the size of the right Kaur's cyst. Dictated by: Tonia Ennis M.D. on 05/09/2019 at 16:13 Approved by: Tonia Ennis M.D. on 05/09/2019 at 16:15
== END ==
PROVIDERS: Family Provider Orthopaedic Surgery; PCP Family Medicine; Visit Provider Family Medicine
DX: I82.431 Acute embolism and thrombosis of right popliteal vein (principal)
CPT/HCPCS: 93971

== ENCOUNTER → 2019-07-31 13:16 | Outpatient (CLI) | payer MEDICARE, BC, SELFPAY ==
[2019-01-30 10:06] VITALS: BMI 34.9
--- NOTE | 2019-07-31 13:19 | DI.US.S_ITS ---
PROCEDURE: US [facility] VENOUS LOW EXTREM RT INDICATIONS: DVT TECHNIQUE: Real-time imaging, as well as color and pulse Doppler interrogation, were performed of the lower extremity deep veins from the inguinal ligament to the popliteal fossa. COMPARISON: [facility], [facility] VENOUS LOW EXTREM RT, 05/09/2019, 13:59. [facility], PERIP VENOUS LOW EXTREM RT, 02/14/2019, 18:10. FINDINGS: The common femoral, femoral and popliteal veins are normally compressible, and free of acute appearing intraluminal thrombus. Color and pulse Doppler demonstrate normal phasic intraluminal flow. There is normal augmentation response to distal compression maneuver. There is a chronic appearing organized nonocclusive eccentric small thrombus at the distal popliteal artery near the trifurcation region, previously present. Stable Kaur's cyst posterior medial knee. IMPRESSION: No new thrombus found, a small eccentric distal popliteal vein organized thrombus again seen and a Kaur's cyst previously present is stable over time considering slight differences in angulation. Dictated by: William Nelson M.D. on 07/31/2019 at 14:16 Approved by: William Nelson M.D. on 07/31/2019 at 14:17
[2019-07-31 14:22] LABS: Add Manual Diff / Slide Review NO; Basophils Absolute Auto 0 /uL (0-100); Basophils Percent Auto 0.5 % (0-2); Eosinophils Absolute Auto 200 /uL (0-450); Eosinophils Percent Auto 2.9 % (2-4); Hematocrit 37.1 % (36-46); Hemoglobin 12.3 g/dL (12.0-16.0); Lymphocytes Absolute Auto 1400 /uL (1100-4500); Lymphocytes Percent Auto 26.1 % (25-40); Mean Corpuscular HGB Conc 33.2 % (30-36); Mean Corpuscular Hemoglobin 29.1 PG (26-34); Mean Corpuscular Volume 87.6 fL (80-100); Monocytes Absolute Auto 500 /uL (0-900); Monocytes Percent Auto 10.6 % (3-14); Neutrophils Absolute Auto 3100 /uL (1500-7000); Neutrophils Percent Auto 59.9 % (50-75); Platelet Count 275 X10^3/uL (150-400); Red Blood Cell Count 4.24 X10^6/uL (4.0-5.2); Red Cell Distribution Width 17.6 % (11.6-14.8); White Blood Cell Count 5.2 X10^3/uL (4.5-11.0)
[2019-07-31 14:34] LABS: Hemoglobin A1C% w Est Avg Glu 5.7 % (4.0-6.0)
[2019-07-31 17:15] LABS: Chloride 103 mmol/L (98-107); HEMOLYSIS < 15 (0-50)
[2019-07-31 17:18] LABS: Blood Urea Nitrogen 34 mg/dL (7-17); Calcium 9.6 mg/dL (8.4-10.2); Carbon Dioxide 24 mmol/L (22-32); Estimated Glomerular Filt Rate 54.5 mL/min (>60); Glucose 120 mg/dL (80-110); Potassium 4.8 mmol/L (3.4-5.1); Sodium 140 mmol/L (137-145)
[2019-07-31 17:35] LABS: Creatinine Urine Random 76.7 mg/dL
[2019-07-31 17:41] LABS: Microalbumi Creatinin Ratio Ur 7.8 ug/mg CR (<30); Microalbumin Urine Random < 0.6 mg/dL (0-1.6)
== END ==
PROVIDERS: Family Provider Orthopaedic Surgery; PCP Family Medicine; Visit Provider Family Medicine
DX: I82.431 Acute embolism and thrombosis of right popliteal vein (principal); I10 Essential (primary) hypertension; D64.9 Anemia, unspecified; M71.21 Synovial cyst of popliteal space [Baker], right knee
CPT/HCPCS: 36415; 80048; 82043; 82570; 83036; 85025; 93971

== ENCOUNTER → 2019-09-28 13:36 | Outpatient (CLI) | payer MEDICARE, BC, SELFPAY ==
[2019-01-30 10:06] VITALS: BMI 34.9
[2019-09-28 15:56] LABS: Free T3, Triiodothyronine Free 3.34 pg/mL (2.77-5.27); Free T4, Direct Thyroxine 1.25 ng/dL (0.78-2.19)
[2019-09-28 16:09] LABS: Thyroid Stimulating Hormone 0.23 uIU/mL (0.47-4.68)
== END ==
PROVIDERS: PCP Family Medicine; Visit Provider Family Medicine
DX: E03.9 Hypothyroidism, unspecified (principal)
CPT/HCPCS: 36415; 84439; 84443; 84481

== ENCOUNTER → 2019-10-30 14:01 | Outpatient (CLI) | payer MEDICARE, BC, SELFPAY ==
[2019-01-30 10:06] VITALS: BMI 34.9
--- NOTE | 2019-10-30 14:03 | DI.US.S_ITS ---
PROCEDURE: US [facility]IP VENOUS LOW EXTREM RT INDICATIONS: POSSIBLE DVT TECHNIQUE: Real-time imaging, as well as color and pulse Doppler interrogation, were performed of the lower extremity deep veins from the inguinal ligament to the popliteal fossa. COMPARISON: [facility], [facility] VENOUS LOW EXTREM RT, 07/31/2019, 13:31. [facility], PERIP VENOUS LOW EXTREM RT, 05/09/2019, 13:59. FINDINGS: Again noted is eccentric nonocclusive thrombosis involving the right popliteal vein, previously documented. No new DVT is found. A Kaur's cyst at the posterior medial knee measures up to 2.7 x 3.3 x 5.0 cm, mildly reduced in size from 9 IMPRESSION: No acute DVT found. 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 Small improvement in size of the Kaur cyst at the posterior medial knee. Dictated by: William Nelson M.D. on 10/30/2019 at 15:14 Approved by: William Nelson M.D. on 10/30/2019 at 15:16
== END ==
PROVIDERS: PCP Family Medicine; Visit Provider Family Medicine
DX: I82.531 Chronic embolism and thrombosis of right popliteal vein (principal); M71.21 Synovial cyst of popliteal space [Baker], right knee
CPT/HCPCS: 93971

== ENCOUNTER → 2020-04-08 14:02 | Outpatient (CLI) | payer MEDICARE, BC, SELFPAY ==
[2019-01-30 10:06] VITALS: BMI 34.9
--- NOTE | 2020-04-08 14:03 | DI.US.S_ITS ---
PROCEDURE: US PERIP VENOUS LOW EXTREM RT INDICATIONS: FOLLOW-UP DVT TECHNIQUE: Real-time imaging, as well as color and pulse Doppler interrogation, were performed of the lower extremity deep veins from the inguinal ligament to the popliteal fossa. COMPARISON: [facility], [facility] VENOUS LOW EXTREM RT, 07/31/2019, 13:31. [facility], PERIP VENOUS LOW EXTREM RT, 05/09/2019, 13:59. [facility], PERIP VENOUS LOW EXTREM RT, 10/30/2019, 14:45. FINDINGS: The common femoral, femoral and popliteal veins are normally compressible, and free of intraluminal thrombus. Color and pulse Doppler demonstrate normal phasic intraluminal flow. There is normal augmentation response to distal compression maneuver. There is a Kaur's cyst seen that measures 5.2 x 2.2 x 3.8 cm. No abnormal vascularity can be seen. IMPRESSION: Negative for deep venous thrombosis. The previously seen chronic popliteal deep venous thrombosis is not perceived on this study. Dictated by: Destin Ward M.D. on 04/08/2020 at 14:44 Approved by: Destin Ward M.D. on 04/08/2020 at 14:45
== END ==
PROVIDERS: PCP Family Medicine; Referring Provider Family Medicine; Visit Provider Family Medicine
DX: I82.401 Acute embolism and thrombosis of unspecified deep veins of right lower extremity (principal); M71.21 Synovial cyst of popliteal space [Baker], right knee
CPT/HCPCS: 93971

== ENCOUNTER 2020-07-08 10:12 | Emergency (ER) | payer MEDICARE, BC, SELFPAY ==
[2019-01-30 10:06] VITALS: BMI 34.9
[2020-07-08] VITALS (7 sets, daily range): BP systolic 129–179; BP diastolic 65–81; PULSE 64–98; RESP 18; TEMP 37.2; O2SAT 96–100
--- NOTE | 2020-07-08 11:23 | DI.US.S_ITS ---
PROCEDURE: US PERIP VENOUS LOW EXTREM BI INDICATIONS: EDEMA; HX RLE DVT TECHNIQUE: Real-time imaging, as well as color and pulse Doppler interrogation, were performed of the deep veins of both legs from the inguinal ligament to the popliteal fossa. COMPARISON: [facility], , [facility] VENOUS LOW EXTREM RT, 04/08/2020, 14:30. FINDINGS: Right: The common femoral, femoral and popliteal veins are normally compressible, and free of intraluminal thrombus. Color and pulse Doppler demonstrate normal phasic intravascular flow. There is normal augmentation response to distal compression maneuver. There is a fluid collection in the right popliteal fossa measuring up to 5.1 x 2.4 x 3.6 cm compatible with a Kaur's cyst. Left: The common femoral, femoral and popliteal veins are normally compressible, and free of intraluminal thrombus. Color and pulse Doppler demonstrate normal phasic intravascular flow. There is normal augmentation response to distal compression maneuver. IMPRESSION: 1. No evidence of deep venous thrombosis in the right or left lower extremity. Dictated by: Kenny Dickey M.D. on 07/08/2020 at 13:03 Approved by: Kenny Dickey M.D. on 07/08/2020 at 13:04
--- NOTE | 2020-07-08 11:25 | ED.EXTPRO ---
HPI - Extremity Problem <MELVIN Rosado - Last Filed: 07/08/20 13:34> General Chief complaint: Extremity Problem,Nontraumatic Stated complaint: left leg swollen,hard Time Seen by Provider: 07/08/20 11:08 Source: patient and family Mode of arrival: Ambulatory Limitations: no limitations History of Present Illness HPI Narrative: This is a 75 year female, nonsmoker, has history of DVT on right lower extremity after the hip surgery 2019, hypertension and takes calcium channel gabbie and also is low-dose of estrogen hormone replacement presents to ED with her spouse with chief complain of bilateral leg swelling worse on left side for last 1-2 months. Patient reports after the right-sided hip and knee surgery she always had some swelling but last couple of months the swelling became worse. Reports the swelling gets worse during afternoons and describes as hard as rocks from ankle to mid calf in anterior and posterior legs. Patient denies chest pain, dyspnea or orthopnea. She denies recent injuries or trauma to bilateral legs. She denies pain, fever, chills, nausea, vomiting, redness or warmth to affected legs. Patient states she had taken off from [employer] April this year after been on for 1.5 years. Patient reports mother and father had strokes and blood clots. Related Data Home Medications Medication Instructions Recorded Confirmed glucosamine 250 cl-oujro-glu 200 1 tab PO TID tab 12/23/18 04/19/20 mg-D3 1,500 jwso-M-hsvdj-herbs tablet ketoconazole 1 applic TOPICAL DIRECTED 02/17/19 04/19/20 naloxone [Narcan] 1 spray INTRANASAL DIRECTED 02/17/19 04/19/20 omega-3 fatty acids 1,000 mg 1,000 mg PO BID 02/21/19 04/19/20 capsule Previous Rx's Medication Instructions Recorded Disabled Parking Permit #1 ea 10/05/18 trazodone 100 mg tablet 100 mg PO BEDTIME PRN #90 tab 03/29/19 atenolol 50 mg tablet 50 mg PO DAILY #90 tab 11/08/19 potassium chloride 8 mEq 16 meq PO DAILY #180 tab 11/08/19 tablet,extended release lisinopril 20 2 tab PO DAILY #180 tab 01/04/20 mg-hydrochlorothiazide 12.5 mg tablet amlodipine 5 mg tablet 5 mg PO DAILY #90 tab 01/15/20 levothyroxine 100 mcg capsule 100 mcg PO DAILY #90 cap 01/31/20 estradiol-norethindrone acet 0.5 1 tab PO DAILY #84 tab MDD 1 04/18/20 mg-0.1 mg tablet clobetasol 0.05 % topical cream 1 applictn TOPICAL BID #15 gram 04/29/20 tramadol 50 mg tablet 100 mg PO Q6HP PRN #720 tab NS 05/22/20 doxycycline hyclate 50 mg capsule 50 mg PO BEDTIME #90 cap 06/20/20 Allergies Allergy/AdvReac Type Severity Reaction Status Date / Time Iodine and Iodide Containing Allergy Severe ANAPHYLAXIS Verified 07/08/20 10:37 Produc [IODINE AND IODIDE CONTAINING PRODUC] adhesive [ADHESIVE] Allergy Mild LOCAL RASH Verified 07/08/20 10:37 enalapril [ENALAPRIL] Allergy Mild WHOLE BODY Verified 07/08/20 10:37 EDEMA diazepam AdvReac Intermediate Agitated Verified 07/08/20 10:37 Review of Systems <MELVIN Rosado - Last Filed: 07/08/20 13:34> Review of Systems Narrative: General: Denies fever, chills, fatigue, malaise, sweats. HEENT: Denies sinus pain, ear pain, sore throat, difficulty swallowing, dizziness. Respiratory: Denies dyspnea, cough, wheezing, hemoptysis, sputum. Cardiovascular: Denies chest pain, palpitations, orthopnea, edema. Gastrointestinal: Denies nausea, vomiting, abdominal pain, diarrhea, constipation, melena. : Denies dysuria, frequency, incontinence, hematuria, urinary retention. Musculoskeletal: See HPI Skin: Denies rash, skin lesions, or other. Neurologic: Denies weakness, headache, numbness, change in speech, confusion, seizures, incoordination. Psychiatric: No concerning psychosocial issues. 12-point review of systems is negative except for those stated above. Patient History <MELVIN Rosado - Last Filed: 07/08/20 13:34> Medical History (Updated 07/08/20 @ 13:28 by MELVIN Rosado) Arthritis (Chronic) Calculus of kidney (08/21/13) Cataract (Chronic) Chicken pox (Resolved) Chronic kidney disease (CKD) stage G3a/A1, moderately decreased glomerular filtration rate (GFR) between 45-59 mL/min/1.73 square meter and albuminuria creatinine ratio less than 30 mg/g (Acute) Cyst of right ovary (08/23/13) GERD (gastroesophageal reflux disease) (Chronic) Hemorrhoids (Chronic 2014) History of nephrolithiasis (Resolved) Hyperlipidemia (Chronic) Hypertension (Chronic 1989) Hypothyroidism (Chronic 2012) Measles (Resolved) Mumps (Resolved) Numbness (Acute) Osteoarthritis (Chronic) Osteoarthritis of left hip (Inactive 02/15/14) Ovarian cyst, bilateral (Resolved 12/2013) Prediabetes (Chronic) Rosacea (Chronic 2000) Surgical History Anesthesia (Resolved) History of arthroplasty of left knee (Acute ~2011) History of bilateral salpingo-oophorectomy (BSO) (Resolved 2013) History of knee replacement (Deleted 2011) History of total left hip arthroplasty (Acute ~2013) History of total right hip arthroplasty (Acute ~01/2019) Hx of appendectomy (Acute) Hx of left inguinal hernia repair (Acute) Status post bilateral cataract extraction (Acute ~2012) Status post dilation and curettage (Resolved 1983) Status post ovarian cystectomy (Resolved 1967) Family History Father Diabetes mellitus Heart disease Grandfather Stroke Mother Cancer Stroke Colon cancer Sister Age: 61 Congenital heart disease Brother Prostate cancer Daughter SUKH positive Daughter Taqueria's thyroiditis Grandmother No problems noted. Grandmother No problems noted. Son Schizophrenia Social History household members: spouse Smoking Status: Never smoker alcohol intake: never substance use type: does not use Smoking Status: Never smoker alcohol intake frequency: other Substance Use Type: does not use Exam <MELVIN Rosado - Last Filed: 07/08/20 13:34> Narrative Exam Narrative: General appearance: well developed, well nourished, in no acute distress. Head: normocephalic, atraumatic, no scalp lesions, non-tender. ENT: Hearing grossly intact. Nose without bleeding, purulent discharge. Airway patent. Neck/Thyroid: neck supple, full range of motion, no visible masses or meningeal signs. No JVD, non-tender without lymphadenopathy. Skin: no suspicious rashes, lesions over visible areas. Warm and dry and appropriate color for ethnicity. Heart: no clubbing, no cyanosis, no edema. S1 and S2 normal. RRR w/o murmurs, clicks, or bruits. Lungs: Breathing even and unlabored. No stridor. No accessory muscles used. Able to speak in full sentences. Chest: normal shape and expansion. Abdomen: non-obese, non-distended. Neurologic: alert and oriented. Cognitive exam, RAYON WINDER and PNS grossly intact on informal exam. Psych: good eye contact, normal affect. Initial Vital Signs Initial Vital Signs: Vital Signs Temperature 98.9 F 07/08/20 10:32 Pulse Rate 85 07/08/20 10:32 Respiratory Rate 18 07/08/20 10:32 Blood Pressure 179/81 H 07/08/20 10:32 Extrem Right lower extremity: normal to inspection, full ROM, normal capillary refill, edema Details: 1+, lower leg Details: pitting edema Details: 1+; no erythema, no tenderness, no palpable cords, no lacerations and no unusual warmth and foot Details: toes with normal ROM and vascular exam Details: dorsalis pedis pulse present Left lower extremity: normal to inspection, full ROM, normal capillary refill, edema Details: 1+, lower leg Details: pitting edema Details: 1+; no erythema, no tenderness, no palpable cords, no lacerations and no unusual warmth and foot Details: toes with normal ROM and vascular exam Details: dorsalis pedis pulse present <Leela Gutierrez DO - Last Filed: 07/14/20 07:27> Initial Vital Signs Initial Vital Signs: Vital Signs Temperature 98.9 F 07/08/20 10:32 Pulse Rate 85 07/08/20 10:32 Respiratory Rate 18 07/08/20 10:32 Blood Pressure 179/81 H 07/08/20 10:32 Scores <MELVIN Rosado - Last Filed: 07/08/20 13:34> GCS [place] coma scale eye opening: Spontaneous [place] coma scale verbal response: Orientated M[place] coma scale motor response: Obey commands [place] coma scale total score: 15 Wells' Criteria for DVT Active Cancer (Treatment within 6 months): No Bedridden recently >3 days or major surgery within 4 weeks: No Calf Swelling >3cm compared to other leg: No Collateral (nonvericose) superficial veins present: No Entire leg swollen: Yes Localized tenderness along the deep vein system: No Pitting edema, confined to symtomatic leg: Yes Paralysis, paresis, or recent plaster immobilization of ext: No Previously documented DVT: Yes Alternative dx to DVT as likely or more likely: Yes Wells' criteria for DVT: 1 Course <MELVIN Rosado - Last Filed: 07/08/20 13:34> Orders Ordered: ED Orders 07/08/20 11:23 periph venous low extrem bi Stat 07/08/20 12:20 Basic Metabolic Panel Stat Complete Blood Count AUTO DIFF Stat NT-proBNP (BNP-Adult 18+) Stat Partial Thromboplastin Time Stat Prothrombin Time INR Stat Vital Signs Vital signs: Vital Signs - 8 hr 07/08/20 10:32 07/08/20 11:03 07/08/20 11:30 Temperature 98.9 F Pulse Rate 85 79 64 Respiratory Rate 18 Blood Pressure 179/81 H 129/65 Pulse Oximetry 97 100 <Leela Gutierrez DO - Last Filed: 07/14/20 07:27> Orders Ordered: ED Orders 07/08/20 11:23 periph venous low extrem bi Stat 07/08/20 12:20 Basic Metabolic Panel Stat Complete Blood Count AUTO DIFF Stat NT-proBNP (BNP-Adult 18+) Stat Partial Thromboplastin Time Stat Prothrombin Time INR Stat Vital Signs Vital signs: Vital Signs - 8 hr 07/08/20 10:32 07/08/20 11:03 07/08/20 11:30 Temperature 98.9 F Pulse Rate 85 79 64 Respiratory Rate 18 Blood Pressure 179/81 H 129/65 Pulse Oximetry 97 100 MDM - Extremity (Nontraumatic) <MELVIN Rosado - Last Filed: 07/08/20 13:34> Differential Diagnosis Differential diagnosis: Likely cellulitis, superficial thrombophlebitis, lower extremity edema, deep vein thrombosis of lower extremity and other (heart failure) Medical Records Attestation: I reviewed the patient's medical records. Lab Data Attestation: I reviewed the patient's lab results. Result diagrams: 07/08/20 12:20 07/08/20 12:20 Labs: Lab Results 07/08/20 07/08/20 07/08/20 Range/Units 12:20 12:20 12:20 WBC 7.0 (4.5-11.0) X10^3/uL RBC 4.06 (4.0-5.2) X10^6/uL Hgb 12.8 (12.0-16.0) g/dL Hct 37.9 (36-46) % MCV 93.6 (80-100) fL MCH 31.5 (26-34) PG MCHC 33.6 (30-36) % RDW 14.2 (11.6-14.8) % Plt Count 242 (150-400) X10^3/uL Neut % (Auto) 70.0 (50-75) % Lymph % (Auto) 18.2 L (25-40) % [place] % (Auto) 8.1 (3-14) % Eos % (Auto) 3.3 (2-4) % Baso % (Auto) 0.4 (0-2) % Neut # (Auto) 4900 (1263-0388) /uL Lymph # (Auto) 1300 (5565-0152) /uL [place] # (Auto) 600 (0-900) /uL Eos # (Auto) 200 (0-450) /uL Baso # (Auto) 0 (0-100) /uL PT 10.9 (10.1-12.7) SECONDS INR 0.9 (0.9-1.3) APTT 27 D (26.4-36.2) SECONDS Sodium (137-145) mmol/L Potassium (3.4-5.1) mmol/L Chloride (98-107) mmol/L Carbon Dioxide (22-32) mmol/L BUN (7-17) mg/dL Creatinine (0.52-1.04) mg/dL Estimated GFR (>60) mL/min BUN/Creatinine Ratio (6-22) Glucose (80-110) mg/dL Calcium (8.4-10.2) mg/dL NT-Pro-B Natriuret Pep 183 H (<125) pg/mL 07/08/20 Range/Units 12:20 WBC (4.5-11.0) X10^3/uL RBC (4.0-5.2) X10^6/uL Hgb (12.0-16.0) g/dL Hct (36-46) % MCV (80-100) fL MCH (26-34) PG MCHC (30-36) % RDW (11.6-14.8) % Plt Count (150-400) X10^3/uL Neut % (Auto) (50-75) % Lymph % (Auto) (25-40) % [place] % (Auto) (3-14) % Eos % (Auto) (2-4) % Baso % (Auto) (0-2) % Neut # (Auto) (6452-8177) /uL Lymph # (Auto) (7692-4811) /uL [place] # (Auto) (0-900) /uL Eos # (Auto) (0-450) /uL Baso # (Auto) (0-100) /uL PT (10.1-12.7) SECONDS INR (0.9-1.3) APTT (26.4-36.2) SECONDS Sodium 139 (137-145) mmol/L Potassium 4.0 (3.4-5.1) mmol/L Chloride 102 (98-107) mmol/L Carbon Dioxide 27 (22-32) mmol/L BUN 27 H (7-17) mg/dL Creatinine 1.07 H (0.52-1.04) mg/dL Estimated GFR 50.3 L (>60) mL/min BUN/Creatinine Ratio 25.2 H (6-22) Glucose 127 H (80-110) mg/dL Calcium 9.6 (8.4-10.2) mg/dL NT-Pro-B Natriuret Pep (<125) pg/mL Imaging Data US - DVT: Radiologist's Impression: [address] [address] Ultrasound Report Signed Patient: Soha Harp EMR#: [id number] : 7Acct:[id number] Age/Sex: 75 / FDate of Service: 07/08/20 Loc: ED Accession Number: [id number] Procedure: US periph venous low extrem bi Ordering Provider: Ricki Avery PROCEDURE: US PERIPH VENOUS LOW EXTREM BI INDICATIONS: EDEMA; HX RLE DVT TECHNIQUE: Real-time imaging, as well as color and pulse Doppler interrogation, were performed of the deep veins of both legs from the inguinal ligament to the popliteal fossa. COMPARISON: [facility], , PERIP VENOUS LOW EXTREM RT, 04/08/2020, 14:30. FINDINGS: Right: The common femoral, femoral and popliteal veins are normally compressible, and free of intraluminal thrombus. Color and pulse Doppler demonstrate normal phasic intravascular flow. There is normal augmentation response to distal compression maneuver. There is a fluid collection in the right popliteal fossa measuring up to 5.1 x 2.4 x 3.6 cm compatible with a Kaur's cyst. Left: The common femoral, femoral and popliteal veins are normally compressible, and free of intraluminal thrombus. Color and pulse Doppler demonstrate normal phasic intravascular flow. There is normal augmentation response to distal compression maneuver. IMPRESSION: 1. No evidence of deep venous thrombosis in the right or left lower extremity. Dictated by: Kenny Dickey M.D. on 07/08/2020 at 13:03 Approved by: Kenny Dickey M.D. on 07/08/2020 at 13:04 [facility] Narrative Medical decision making narrative: This is a 75-year-old female who has history of DVT in right lower extremity presents to ED with bilateral leg swelling for last 1-2 months worsening on left side. No chest pain, dyspnea. Physical exam is not consistent with cellulitis. Bilateral 1 to 2+ pitting edema edema with good distal circulation. Wells criteria for DVT score was 1. Given patient's history of DVT and not currently on anticoagulants and patient is currently taking estrogen hormone replacement therapy, ultrasound was ordered and obtained. Ultrasound on bilateral lower extremity was negative for DVT. No leukocytosis. No elevation in proBNP indicating heart failure. Patient has slightly elevated kidney function test which is patient's baseline. Patient advised to use a compression stocking and elevate her bilateral legs during rest.. Patient is currently taking calcium channel gabbie and considered her leg swelling is related to this. Return precautions were discussed with patient and patient advised to follow-up with primary care physician to discuss her current medication treatment for hypertension and small dose of diuretics as needed for peripheral edema. Patient verbalized understanding and agreement with the treatment plan. <Leela Gutierrez, - Last Filed: 07/14/20 07:27> Lab Data Labs: Lab Results 07/08/20 07/08/20 07/08/20 Range/Units 12:20 12:20 12:20 WBC 7.0 (4.5-11.0) X10^3/uL RBC 4.06 (4.0-5.2) X10^6/uL Hgb 12.8 (12.0-16.0) g/dL Hct 37.9 (36-46) % MCV 93.6 (80-100) fL MCH 31.5 (26-34) PG MCHC 33.6 (30-36) % RDW 14.2 (11.6-14.8) % Plt Count 242 (150-400) X10^3/uL Neut % (Auto) 70.0 (50-75) % Lymph % (Auto) 18.2 L (25-40) % [place] % (Auto) 8.1 (3-14) % Eos % (Auto) 3.3 (2-4) % Baso % (Auto) 0.4 (0-2) % Neut # (Auto) 4900 (3041-8817) /uL Lymph # (Auto) 1300 (8291-5490) /uL [place] # (Auto) 600 (0-900) /uL Eos # (Auto) 200 (0-450) /uL Baso # (Auto) 0 (0-100) /uL PT 10.9 (10.1-12.7) SECONDS INR 0.9 (0.9-1.3) APTT 27 D (26.4-36.2) SECONDS Sodium (137-145) mmol/L Potassium (3.4-5.1) mmol/L Chloride (98-107) mmol/L Carbon Dioxide (22-32) mmol/L BUN (7-17) mg/dL Creatinine (0.52-1.04) mg/dL Estimated GFR (>60) mL/min BUN/Creatinine Ratio (6-22) Glucose (80-110) mg/dL Calcium (8.4-10.2) mg/dL NT-Pro-B Natriuret Pep 183 H (<125) pg/mL 07/08/20 Range/Units 12:20 WBC (4.5-11.0) X10^3/uL RBC (4.0-5.2) X10^6/uL Hgb (12.0-16.0) g/dL Hct (36-46) % MCV (80-100) fL MCH (26-34) PG MCHC (30-36) % RDW (11.6-14.8) % Plt Count (150-400) X10^3/uL Neut % (Auto) (50-75) % Lymph % (Auto) (25-40) % [place] % (Auto) (3-14) % Eos % (Auto) (2-4) % Baso % (Auto) (0-2) % Neut # (Auto) (1627-6449) /uL Lymph # (Auto) (9766-7469) /uL [place] # (Auto) (0-900) /uL Eos # (Auto) (0-450) /uL Baso # (Auto) (0-100) /uL PT (10.1-12.7) SECONDS INR (0.9-1.3) APTT (26.4-36.2) SECONDS Sodium 139 (137-145) mmol/L Potassium 4.0 (3.4-5.1) mmol/L Chloride 102 (98-107) mmol/L Carbon Dioxide 27 (22-32) mmol/L BUN 27 H (7-17) mg/dL Creatinine 1.07 H (0.52-1.04) mg/dL Estimated GFR 50.3 L (>60) mL/min BUN/Creatinine Ratio 25.2 H (6-22) Glucose 127 H (80-110) mg/dL Calcium 9.6 (8.4-10.2) mg/dL NT-Pro-B Natriuret Pep (<125) pg/mL Discharge Plan Departure Patient Disposition: Home Clinical Impression: Leg edema, Decreased renal function Discharge Date/Time: 07/08/20 13:43 Instructions: DI for Peripheral Edema -- Bilateral Activity Restrictions/Additional Instructions: You have been diagnosed with [peripheral edema. Ultrasound was negative for DVT in bilateral legs. No indications for infection. ProBNP was negative.]. What to do: *Take your medications as directed. *Follow up with your primary care provider in 2-3 days, call for an appointment. Let them know you were seen in the ED and that we asked you to be seen in follow up. *Return to ED if you have any new, worsening, or concerning symptoms, such as [chest pain, breathing difficulty, unable to tolerate fluids, fever, worsening pain, warmth to her legs, or any acute concerns]. Prescriptions: No Action (DME) Disabled Parking Permit Qty: 1 RF: 0 atenolol 50 mg tablet 50 mg PO DAILY Qty: 90 RF: 3 potassium chloride [Klor-Con 8] 8 mEq tablet extended release 16 meq PO DAILY Qty: 180 RF: 3 lisinopril-hydrochlorothiazide 20-12.5 mg tablet 2 tab PO DAILY Qty: 180 RF: 3 amlodipine [Norvasc] 5 mg tablet 5 mg PO DAILY Qty: 90 RF: 3 levothyroxine 100 mcg capsule 100 mcg PO DAILY Qty: 90 RF: 1 estradiol-norethindrone acet [Activella] 0.5-0.1 mg tablet 1 tab PO DAILY MDD 1 Qty: 84 RF: 3 clobetasol [Temovate] 0.05 % cream 1 applictn Topical BID Qty: 15 RF: 0 tramadol 50 mg tablet 100 mg PO Q6HP PRN (Reason: pain) Qty: 720 RF: 1 doxycycline hyclate 50 mg capsule 50 mg PO BEDTIME Qty: 90 RF: 3 quesv-[id number]-[id number] 250 mg-200 mg- 1,500 unit tablet 1 tab PO TID RF: 0 omega-3 fatty acids [Fish Oil Concentrate] 1,000 mg capsule 1,000 mg PO BID RF: 0 trazodone 100 mg tablet 100 mg PO BEDTIME PRN (Reason: sleep) Qty: 90 RF: 3 ketoconazole 2 % shampoo 1 applic topical DIRECTED RF: 0 Narcan 4 mg/actuation spray,non-aerosol 1 spray Intranasal DIRECTED RF: 0 Referrals: Gina Portillo DO [Primary Care Provider] - <Leela Gutierrez DO - Last Filed: 07/14/20 07:27> Cosign ED Attending Cosignature Attestation: I was immediately available in the department for consultation. Documentation has been reviewed. I agree with assessment and plan.
[2020-07-08 12:32] LABS: Add Manual Diff / Slide Review NO; Basophils Absolute Auto 0 /uL (0-100); Basophils Percent Auto 0.4 % (0-2); Eosinophils Absolute Auto 200 /uL (0-450); Eosinophils Percent Auto 3.3 % (2-4); Hematocrit 37.9 % (36-46); Hemoglobin 12.8 g/dL (12.0-16.0); Lymphocytes Absolute Auto 1300 /uL (1100-4500); Lymphocytes Percent Auto 18.2 % (25-40); Mean Corpuscular HGB Conc 33.6 % (30-36); Mean Corpuscular Hemoglobin 31.5 PG (26-34); Mean Corpuscular Volume 93.6 fL (80-100); Monocytes Absolute Auto 600 /uL (0-900); Monocytes Percent Auto 8.1 % (3-14); Neutrophils Absolute Auto 4900 /uL (1500-7000); Platelet Count 242 X10^3/uL (150-400); Red Blood Cell Count 4.06 X10^6/uL (4.0-5.2); Red Cell Distribution Width 14.2 % (11.6-14.8)
[2020-07-08 12:42] LABS: INR 0.9 (0.9-1.3); Prothrombin Time 10.9 SECONDS (10.1-12.7)
[2020-07-08 12:45] LABS: PTT Partial Thromboplastin Tim 27 SECONDS (26.4-36.2)
[2020-07-08 12:48] LABS: BUN Creatinine Ratio 25.2 (6-22); Blood Urea Nitrogen 27 mg/dL (7-17); Calcium 9.6 mg/dL (8.4-10.2); Carbon Dioxide 27 mmol/L (22-32); Chloride 102 mmol/L (98-107); Estimated Glomerular Filt Rate 50.3 mL/min (>60); Glucose 127 mg/dL (80-110); HEMOLYSIS < 15 (0-50); Sodium 139 mmol/L (137-145)
[2020-07-08 12:58] LABS: NT-proBNP (BNP-Adult 18+) 183 pg/mL (<125)
== END 2020-07-08 13:43 | disposition home or self-care (01) ==
PROVIDERS: Emergency Provider Nurse Practitioner Family; PCP Family Medicine
DX: R60.9 Edema, unspecified (principal); N28.9 Disorder of kidney and ureter, unspecified; Z86.718 Personal history of other venous thrombosis and embolism
CPT/HCPCS: 36415; 80048; 83880; 85025; 85610; 85730; 93970; 99283; 99284

== ENCOUNTER → 2020-08-01 08:15 | Outpatient (CLI) | payer MEDICARE, BC, SELFPAY ==
[2020-07-11 13:37] VITALS: BMI 34.9
[2020-08-01 09:01] LABS: Add Manual Diff / Slide Review NO; Basophils Absolute Auto 0 /uL (0-100); Basophils Percent Auto 0.7 % (0-2); Eosinophils Absolute Auto 300 /uL (0-450); Eosinophils Percent Auto 5.1 % (2-4); Hematocrit 38.8 % (36-46); Hemoglobin 12.6 g/dL (12.0-16.0); Lymphocytes Absolute Auto 1800 /uL (1100-4500); Lymphocytes Percent Auto 33.8 % (25-40); Mean Corpuscular HGB Conc 32.6 % (30-36); Mean Corpuscular Hemoglobin 30.6 PG (26-34); Mean Corpuscular Volume 93.9 fL (80-100); Monocytes Absolute Auto 500 /uL (0-900); Monocytes Percent Auto 9.7 % (3-14); Neutrophils Absolute Auto 2700 /uL (1500-7000); Neutrophils Percent Auto 50.7 % (50-75); Platelet Count 269 X10^3/uL (150-400); Red Blood Cell Count 4.13 X10^6/uL (4.0-5.2); Red Cell Distribution Width 14.4 % (11.6-14.8); White Blood Cell Count 5.2 X10^3/uL (4.5-11.0)
[2020-08-01 09:10] LABS: Hemoglobin A1C% w Est Avg Glu 5.9 % (4.0-6.0)
[2020-08-01 09:19] LABS: Alanine Aminotransferase 15 IU/L (<35); Albumin 4.3 g/dL (3.5-5.0); Albumin Globulin Ratio 1.3 (1.0-2.8); Alkaline Phosphatase 68 U/L (38-126); Aspartate Aminotransferase 28 IU/L (14-36); BUN Creatinine Ratio 27.1 (6-22); Bilirubin Total 0.6 mg/dL (0.2-1.3); Blood Urea Nitrogen 23 mg/dL (7-17); Calcium 9.3 mg/dL (8.4-10.2); Carbon Dioxide 27 mmol/L (22-32); Chloride 103 mmol/L (98-107); Cholesterol 205 mg/dL (140-199); Estimated Glomerular Filt Rate > 60.0 mL/min (>60); Globulin 3.4 g/dL (1.7-4.1); Glucose 102 mg/dL (80-110); HDL Cholesterol 39 mg/dL (40-60); HEMOLYSIS < 15 (0-50); LDL Cholesterol Calculated 97 mg/dL (<100); Potassium 4.3 mmol/L (3.4-5.1); Sodium 139 mmol/L (137-145); Total Protein 7.7 g/dL (6.3-8.2); Triglycerides 346 mg/dL (35-150)
[2020-08-01 09:34] LABS: Free T3, Triiodothyronine Free 2.74 pg/mL (2.77-5.27); Free T4, Direct Thyroxine 1.19 ng/dL (0.78-2.19)
[2020-08-01 09:47] LABS: Thyroid Stimulating Hormone 2.74 uIU/mL (0.47-4.68)
[2020-08-03 13:40] LABS: Protein C-Functional 160 % (73-180); Protein S-Functional 91 % (63-140)
[2020-08-04 08:07] LABS: Dilute Russell Viper Venom 48.2 sec (0.0-47.0); Dilute Russell Viper Venom Mix 39.4 sec (0.0-47.0); Lupus Reflex Interpretation Comment: (.); PTT-LA 29.9 sec (0.0-51.9)
[2020-08-04 21:20] LABS: Cardiolipin Ab IgA <9 APL U/mL (0-11); Cardiolipin Ab IgG <9 GPL U/mL (0-14); Cardiolipin Ab IgM <9 MPL U/mL (0-12)
== END ==
PROVIDERS: PCP Family Medicine; Referring Provider Family Medicine; Visit Provider Family Medicine
DX: E03.9 Hypothyroidism, unspecified (principal); E66.9 Obesity, unspecified; I10 Essential (primary) hypertension; I82.401 Acute embolism and thrombosis of unspecified deep veins of right lower extremity; N18.30 Chronic kidney disease, stage 3 unspecified; R73.03 Prediabetes; E78.2 Mixed hyperlipidemia
CPT/HCPCS: 36415; 80053; 80061; 81241; 83036; 83090; 84439; 84443; 84481; 85025; 85300; 85303; 85306; 85598; 85613; 86147

== ENCOUNTER → 2020-08-20 16:12 | Outpatient (CLI) | payer MEDICARE, BC, SELFPAY ==
[2020-07-11 13:37] VITALS: BMI 34.9
--- NOTE | 2020-08-20 16:14 | DI.MG.S_ITS ---
BILATERAL DIGITAL SCREENING MAMMOGRAM 3D/2D WITH CAD: 08/20/2020 CLINICAL: Routine screening. Comparison is made to exams dated: 01/28/2019 mammogram, 01/27/2018 mammogram, and 12/21/2016 mammogram - [facility]. The tissue of both breasts is heterogeneously dense. This may lower the sensitivity of mammography. Current study was also evaluated with a Computer Aided Detection (CAD) system. There are benign calcifications in both breasts. No significant masses, calcifications, or other findings are seen in either breast. There has been no significant interval change. IMPRESSION: BENIGN There is no mammographic evidence of malignancy. A 1 year screening mammogram is recommended. This exam was interpreted at Station ID: [id number]. NOTE: For mammograms, a report in lay terms will be sent to the patient. Approximately 15% of breast malignancies will not be visualized mammographically. In the management of a palpable breast mass, a negative mammogram must not discourage biopsy of a clinically suspicious lesion. Electronically Signed By: Kary byers/cesar:08/20/2020 17:11:32 copy to: CITLALY BUTLER letter sent: Normal Exam ACR BI-RADS Category 2: Benign Finding(s) 3342F
== END ==
PROVIDERS: PCP Family Medicine; Referring Provider Family Medicine; Visit Provider Family Medicine
DX: Z12.31 Encounter for screening mammogram for malignant neoplasm of breast (principal)
CPT/HCPCS: 77063; 77067

== ENCOUNTER → 2020-12-03 10:37 | Outpatient (CLI) | payer MEDICARE, BC, SELFPAY ==
[2020-07-11 13:37] VITALS: BMI 34.9
[2020-12-03 12:25] LABS: BUN Creatinine Ratio 27.6 (6-22); Blood Urea Nitrogen 24 mg/dL (7-17); Calcium 9.4 mg/dL (8.4-10.2); Carbon Dioxide 30 mmol/L (22-32); Chloride 99 mmol/L (98-107); Estimated Glomerular Filt Rate > 60.0 mL/min (>60); Glucose 156 mg/dL (80-110); HEMOLYSIS 31 (0-50); Potassium 4.2 mmol/L (3.4-5.1); Sodium 136 mmol/L (137-145)
== END ==
PROVIDERS: PCP Family Medicine; Referring Provider Family Medicine; Visit Provider Family Medicine
DX: N18.30 Chronic kidney disease, stage 3 unspecified (principal)
CPT/HCPCS: 36415; 80048

== ENCOUNTER → 2020-12-18 12:41 | Outpatient (CLI) | payer MEDICARE, BC, SELFPAY ==
[2020-07-11 13:37] VITALS: BMI 34.9
--- NOTE | 2020-12-18 12:44 | DI.MRI.S_ITS ---
PROCEDURE: MR LUMBAR SPINE WO/W CON INDICATIONS: Spinal tumor, Nerve Compression TECHNIQUE: Noncontrast sagittal T1 spin echo and T2 fast spin echo, sagittal STIR, axial T1 and T2 fast spin echo through the lumbar spine. In cases with scoliosis, additional coronal T2 fast spin echo may be performed. After the administration of contrast, sagittal and axial T1 spin echo with fat saturation through the lumbar spine. COMPARISON: None. FINDINGS: Image quality: Excellent. Alignment and curvature: There is multilevel trace retrolisthesis throughout the lumbar spine. Marrow: Marrow is of normal overall signal. Reactive endplate changes are present at L1-L2. No acute vertebral body compression fractures. No suspicious marrow enhancement. Spinal cord: Conus medullaris terminates at the L1-2 level. Visualized spinal cord demonstrates normal signal, without suspicious enhancement. 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 Paraspinous soft tissues: No paravertebral masses or abnormal enhancement. Discs: Severe desiccation is present throughout the lumbar spine. T10-11, T11-12 and T12-L1: Disc bulges are present at these levels. There is overall mild spinal stenosis also present at these levels. Disc bulge with protrusion and what appears to be inferior extrusion at T12-L1 is noted. L1-L2: Mild disc bulge with moderate to severe spinal stenosis. Mild moderate left and mild right foraminal narrowing with facet and ligamentum flavum hypertrophy. L2-L3: Mild disc bulge with superimposed posterior central protrusion. Moderate spinal stenosis is present. Mild left foraminal narrowing with facet and ligamentum flavum hypertrophy. L3-L4: Mild disc bulge with moderate to severe spinal stenosis. Severe left and moderate to severe right foraminal narrowing with facet and ligamentum flavum hypertrophy. Minimal epidural lipomatosis. L4-L5: Mild disc bulge with moderate to severe spinal stenosis. Moderate to severe bilateral foraminal narrowing, left greater than right with facet and ligamentum flavum hypertrophy. L5-S1: Mild disc bulge without spinal stenosis. There is severe bilateral foraminal narrowing, right greater than left with nerve root compression bilaterally of the exiting L5 nerve roots. This is again most severe on the right. Facet hypertrophy is present. IMPRESSION: 1. Multilevel degenerative changes. 2. Multilevel foraminal narrowing overall moderate to severe secondary to facet and ligamentum flavum arthropathy most notable at L5-S1. 3. Multilevel spinal stenosis overall moderate to severe and secondary to disc bulge with contributing effect of retrolisthesis as well as facet arthropathy. Dictated by: Celine Cannon M.D. on 12/18/2020 at 16:36 Approved by: Celine Cannon M.D. on 12/18/2020 at 16:44
== END ==
PROVIDERS: PCP Family Medicine; Referring Provider Family Medicine; Visit Provider Family Medicine
DX: M54.5 Low back pain (principal); R29.818 Other symptoms and signs involving the nervous system; M47.816 Spondylosis without myelopathy or radiculopathy, lumbar region; M47.817 Spondylosis without myelopathy or radiculopathy, lumbosacral region; M48.07 Spinal stenosis, lumbosacral region; M48.061 Spinal stenosis, lumbar region without neurogenic claudication
CPT/HCPCS: 72158; A9579

== ENCOUNTER → 2021-01-15 11:30 | Outpatient (CLI) | payer MEDICARE, BC, SELFPAY ==
[2020-07-11 13:37] VITALS: BMI 34.9
[2021-01-15 12:16] LABS: Hemoglobin A1C% w Est Avg Glu 6.3 % (4.0-6.0)
[2021-01-15 12:24] LABS: BUN Creatinine Ratio 26.4 (6-22); Blood Urea Nitrogen 24 mg/dL (7-17); Calcium 9.9 mg/dL (8.4-10.2); Carbon Dioxide 25 mmol/L (22-32); Chloride 100 mmol/L (98-107); Estimated Glomerular Filt Rate > 60.0 mL/min (>60); Glucose 142 mg/dL (80-110); HEMOLYSIS < 15 (0-50); Potassium 4.4 mmol/L (3.4-5.1); Sodium 137 mmol/L (137-145)
== END ==
PROVIDERS: PCP Family Medicine; Referring Provider Family Medicine; Visit Provider Family Medicine
DX: R73.03 Prediabetes (principal); E03.9 Hypothyroidism, unspecified; E78.2 Mixed hyperlipidemia; I10 Essential (primary) hypertension; N18.31 Chronic kidney disease, stage 3a
CPT/HCPCS: 36415; 80048; 83036

== ENCOUNTER → 2021-02-19 11:09 | Outpatient (CLI) | payer MEDICARE, BC, SELFPAY ==
[2020-07-11 13:37] VITALS: BMI 34.9
== END ==
PROVIDERS: PCP Family Medicine; Visit Provider Student in an Organized Health Care Education/Training Program
DX: R30.0 Dysuria (principal)
CPT/HCPCS: 87077; 87086; 87186

== ENCOUNTER → 2021-04-28 14:55 | Outpatient (CLI) | payer MEDICARE, BC, SELFPAY ==
[2021-02-19 13:28] VITALS: BMI 34.9
[2021-04-28 17:52] LABS: Add Manual Diff / Slide Review NO; Basophils Absolute Auto 0 /uL (0-100); Basophils Percent Auto 0.5 % (0-2); Eosinophils Absolute Auto 200 /uL (0-450); Eosinophils Percent Auto 3.7 % (2-4); Hematocrit 43.1 % (36-46); Hemoglobin 14.4 g/dL (12.0-16.0); Lymphocytes Absolute Auto 1900 /uL (1100-4500); Lymphocytes Percent Auto 34.4 % (25-40); Mean Corpuscular HGB Conc 33.4 % (30-36); Mean Corpuscular Hemoglobin 31.3 PG (26-34); Mean Corpuscular Volume 93.8 fL (80-100); Monocytes Absolute Auto 500 /uL (0-900); Monocytes Percent Auto 9.6 % (3-14); Neutrophils Absolute Auto 2900 /uL (1500-7000); Neutrophils Percent Auto 51.8 % (50-75); Platelet Count 251 X10^3/uL (150-400); Red Cell Distribution Width 14.5 % (11.6-14.8); White Blood Cell Count 5.5 X10^3/uL (4.5-11.0)
[2021-04-28 18:45] LABS: BUN Creatinine Ratio 28.3 (6-22); Blood Urea Nitrogen 30 mg/dL (7-17); Calcium 9.8 mg/dL (8.4-10.2); Carbon Dioxide 26 mmol/L (22-32); Chloride 103 mmol/L (98-107); Estimated Glomerular Filt Rate 50.7 mL/min (>60); Glucose 91 mg/dL (80-110); HEMOLYSIS < 15 (0-50); Potassium 4.6 mmol/L (3.4-5.1); Sodium 140 mmol/L (137-145)
== END ==
PROVIDERS: PCP Family Medicine; Referring Provider Family Medicine; Visit Provider Family Medicine
DX: N18.31 Chronic kidney disease, stage 3a (principal); R73.03 Prediabetes
CPT/HCPCS: 36415; 80048; 85025

== ENCOUNTER → 2021-05-20 10:54 | Outpatient (CLI) | payer MEDICARE, BC, SELFPAY ==
[2021-05-13 09:23] VITALS: BMI 34.9
[2021-05-20 15:06] LABS: Creatinine Urine Random 112.5 mg/dL
[2021-05-20 15:11] LABS: Microalbumi Creatinin Ratio Ur 8.8 ug/mg CR (<30)
== END ==
PROVIDERS: PCP Family Medicine; Referring Provider Family Medicine; Visit Provider Family Medicine
DX: I10 Essential (primary) hypertension (principal); N18.31 Chronic kidney disease, stage 3a
CPT/HCPCS: 82043; 82570

== ENCOUNTER 2021-09-02 11:42 | Emergency (ER) | payer MEDICARE, BC, SELFPAY ==
[2021-05-13 09:23] VITALS: BMI 34.9
[2021-09-02] VITALS (9 sets, daily range): BP systolic 178–201; BP diastolic 77–93; PULSE 59–71; RESP 11–19; TEMP 36.8; O2SAT 89–100; BMI 35.6
--- NOTE | 2021-09-02 11:56 | DI.RAD.S_ITS ---
PROCEDURE: XR CHEST 1V INDICATIONS: chest pain TECHNIQUE: One view of the chest was acquired. COMPARISON: [facility], CHEST 1 VIEW, 04/23/2008, 11:28. [facility], CHEST 2 VIEW, 05/15/2015, 11:09. FINDINGS: Surgical changes and devices: None. Lungs and pleura: An incomplete inspiratory result is noted, causing a crowded appearance to the lung markings. No focal infiltrates are seen. No pneumothorax or significant pleural effusions are seen. There is elevation of the right hemidiaphragm. Mediastinum: Mediastinal contours appear normal. Heart size is normal. Bones and chest wall: No suspicious bony lesions. Age-appropriate bony degenerative changes are seen, particularly involving the shoulders. Overlying soft tissues appear unremarkable. IMPRESSION: Limited portable chest examination, without a significant cardiopulmonary abnormality identified. Stable elevation of the right hemidiaphragm can be seen. Dictated by: Destin Ward M.D. on 09/02/2021 at 11:31 Approved by: Destin Ward M.D. on 09/02/2021 at 11:33
--- NOTE | 2021-09-02 12:15 | ED.GENADULT ---
HPI - General Adult General Chief complaint: Dizziness Stated complaint: DIZZY/HOT/FELT LIGHTHEADED/NOSEBLEED Time Seen by Provider: 09/02/21 12:05 Source: patient Mode of arrival: Ambulatory Limitations: no limitations History of Present Illness HPI narrative: 76-year-old female who is here for evaluation of multiple symptoms to include yesterday when she had a nose bleed in the morning. There was no trauma. Lasted approximately 30 minutes and then completely resolved. She does not get nosebleeds on a regular basis. She is not on anticoagulation. Afterwards she stated that she did feel fine throughout the day but not 100% normal. She went to bed last night feeling okay. Woke up this morning feeling okay. States she was walking around her bed when she had a sudden onset of lightheadedness and feeling hot and somewhat unsteady on her feet. She had no chest pain. No shortness of breath. No palpitations. No nausea or vomiting. She has not any changes in her bowel habits recently. No urinary symptoms. No musculoskeletal complaints. She did not fall. She went into the living room and sat down in a chair. She started to feel better afterwards. She did eat breakfast this morning. She thought that she should come into the emergency department for evaluation. The time of my evaluation she reports no symptoms. Related Data Home Medications Medication Instructions Recorded Confirmed glucosamine 250 lx-hqzfa-awm 200 1 tab PO TID tab 12/23/18 04/28/21 mg-D3 1,500 opxf-L-aojfe-herbs tablet ketoconazole 2 % shampoo 1 applic TOPICAL DIRECTED 02/17/19 04/28/21 naloxone 4 mg/actuation nasal spray 1 spray INTRANASAL DIRECTED 02/17/19 04/28/21 omega-3 fatty acids 1,000 mg 1,000 mg PO BID 02/21/19 04/28/21 capsule (Fish Oil Concentrate) omeprazole 20 mg capsule,delayed 20 mg PO DAILY 07/15/20 04/28/21 release Previous Rx's Medication Instructions Recorded Disabled Parking Permit #1 ea 10/05/18 clobetasol 0.05 % topical cream 1 applictn TOPICAL BID #15 gram 04/29/20 (Temovate) atenolol 50 mg tablet 50 mg PO DAILY #90 tab 10/14/20 lisinopril 20 2 tab PO DAILY #180 tab 10/14/20 mg-hydrochlorothiazide 12.5 mg tablet potassium chloride 8 mEq 16 meq PO DAILY #180 tab 10/14/20 tablet,extended release (Klor-Con) tramadol 50 mg tablet 100 mg PO Q6HP PRN #720 tab NS 03/21/21 celecoxib 200 mg capsule (Celebrex) 200 mg PO DAILY #90 cap 04/28/21 doxycycline hyclate 50 mg capsule 50 mg PO BID #180 cap 06/16/21 trazodone 50 mg tablet 50 mg PO DAILY #90 tab 06/16/21 estradiol-norethindrone acet 0.5 1 tab PO DAILY #84 tab MDD 1 06/26/21 mg-0.1 mg tablet levothyroxine 100 mcg tablet 100 mcg PO DAILY #90 tab 08/01/21 Allergies Allergy/AdvReac Type Severity Reaction Status Date / Time Iodine and Iodide Containing Allergy Severe ANAPHYLAXIS Verified 09/02/21 11:55 Produc [IODINE AND IODIDE CONTAINING PRODUC] adhesive [ADHESIVE] Allergy Mild LOCAL RASH Verified 09/02/21 11:55 enalapril [ENALAPRIL] Allergy Mild WHOLE BODY Verified 09/02/21 11:55 EDEMA amoxicillin [From Augmentin] AdvReac Intermediate Diarrhea Verified 09/02/21 11:55 clavulanic acid AdvReac Intermediate Diarrhea Verified 09/02/21 11:55 [From Augmentin] diazepam AdvReac Intermediate Agitated Verified 09/02/21 11:55 Review of Systems Review of Systems ROS Unobtainable: All systems reviewed & are unremarkable except as noted in HPI and below Patient History Medical History Arthritis Bakers cyst Calculus of kidney (08/21/13) Cataract Chicken pox Chronic kidney disease (CKD) stage G3a/A1, moderately decreased glomerular filtration rate (GFR) between 45-59 mL/min/1.73 square meter and albuminuria creatinine ratio less than 30 mg/g Cyst of right ovary (08/23/13) Deep vein thrombosis (DVT) of popliteal vein of right lower extremity DVT (deep venous thrombosis) GERD (gastroesophageal reflux disease) Hemorrhoids (2014) History of nephrolithiasis Hyperlipidemia Hypertension (1989) Hypothyroidism (2012) Measles Mumps Numbness Osteoarthritis Osteoarthritis of left hip (02/15/14) Ovarian cyst, bilateral (12/2013) Prediabetes Rosacea (2000) UTI (urinary tract infection) Surgical History Anesthesia History of arthroplasty of left knee (~2011) History of bilateral salpingo-oophorectomy (BSO) (2013) History of total left hip arthroplasty (~2013) History of total right hip arthroplasty (~01/2019) Hx of appendectomy Hx of left inguinal hernia repair Status post bilateral cataract extraction (~2012) Status post dilation and curettage (1983) Status post ovarian cystectomy (1967) Family History Father Diabetes mellitus Heart disease Grandfather Stroke Mother Cancer Stroke Colon cancer Sister Age: 62 Congenital heart disease Brother Prostate cancer Daughter SUKH positive Daughter Taqueria's thyroiditis Grandmother No problems noted. Grandmother No problems noted. Son Schizophrenia Social History household members: spouse Smoking Status: Never smoker alcohol intake: never substance use type: does not use Smoking Status: Never smoker alcohol intake frequency: other Substance Use Type: does not use Exam Initial Vital Signs Initial Vital Signs: Vital Signs Temperature 98.3 F 09/02/21 11:50 Pulse Rate 71 09/02/21 11:50 Respiratory Rate 19 09/02/21 11:50 Blood Pressure 194/93 H 09/02/21 11:50 Pulse Oximetry 100 09/02/21 11:50 Const General: cooperative, healthy appearing, comfortable, well developed and well groomed [facility] Head: normal to inspection Resp Effort & Inspection: normal respiratory effort Auscultation: clear to auscultation bilaterally Cardio Rate: regular rate Rhythm: regular rhythm GI Inspection: normal to inspection Palpation: soft Skin General: no rashes or lesions noted Neuro General: patient alert, patient awake, patient oriented x3 and moves all extremities Cranial Nerves: CN's II-XI intact bilaterally Speech: speech normal Gait: normal gait Extrem General: normal to inspection and capillary refill normal Psych Appearance: grossly normal Mental Status: mental status grossly normal Speech and Movement: speech and movement normal Scores GCS Mandy coma scale eye opening: Spontaneous [place] coma scale verbal response: Orientated [place] coma scale motor response: Obey commands Mandy coma scale total score: 15 Course Orders Ordered: ED Orders 09/02/21 11:56 XR chest 1V Stat Complete Blood Count AUTO DIFF Stat Comprehensive Metabolic Panel Stat Lipase Stat Troponin & CK Cardiac Panel Stat EKG-12 Lead Stat 09/02/21 11:57 Partial Thromboplastin Time Stat Prothrombin Time INR Stat Vital Signs Vital signs: Vital Signs - 8 hr 09/02/21 11:50 Temperature 98.3 F Pulse Rate 71 Respiratory Rate 19 Blood Pressure 194/93 H Pulse Oximetry 100 Medical Decision Making Lab Data Lab results reviewed: Yes I reviewed the patient's lab results. Result diagrams: 09/02/21 12:45 09/02/21 13:23 Labs: Lab Results 09/02/21 09/02/21 09/02/21 Range/Units 12:45 12:45 13:23 WBC 6.6 (4.5-11.0) X10^3/uL RBC 4.33 (4.0-5.2) X10^6/uL Hgb 13.3 (12.0-16.0) g/dL Hct 39.8 (36-46) % MCV 91.7 (80-100) fL MCH 30.7 (26-34) PG MCHC 33.4 (30-36) % RDW 14.5 (11.6-14.8) % Plt Count 261 (150-400) X10^3/uL Neut % (Auto) 68.9 (50-75) % Lymph % (Auto) 20.4 L (25-40) % Crowley % (Auto) 8.6 (3-14) % Eos % (Auto) 1.5 L (2-4) % Baso % (Auto) 0.6 (0-2) % Neut # (Auto) 4600 (5550-3389) /uL Lymph # (Auto) 1400 (9493-2094) /uL Crowley # (Auto) 600 (0-900) /uL Eos # (Auto) 100 (0-450) /uL Baso # (Auto) 0 (0-100) /uL PT (10.1-12.7) SECONDS INR (0.9-1.3) APTT (26.4-36.2) SECONDS Sodium 138 (137-145) mmol/L Potassium 4.4 (3.4-5.1) mmol/L Chloride 100 (98-107) mmol/L Carbon Dioxide 29 (22-32) mmol/L BUN 22 H (7-17) mg/dL Creatinine 0.89 (0.52-1.04) mg/dL Estimated GFR > 60.0 (>60) mL/min BUN/Creatinine Ratio 24.7 H (6-22) Glucose 119 H (80-110) mg/dL Hemoglobin A1c 6.0 (4.0-6.0) % Calcium 9.9 (8.4-10.2) mg/dL Total Bilirubin 0.6 (0.2-1.3) mg/dL AST 25 (14-36) IU/L ALT 17 (<35) IU/L Alkaline Phosphatase 63 (38-126) U/L Total Creatine Kinase 43 (30-135) U/L CK-MB (CK-2) TNP CK-MB (CK-2) Rel Index TNP Troponin I < 0.012 (0.01-0.034) ng/mL Total Protein 7.4 (6.3-8.2) g/dL Albumin 4.3 (3.5-5.0) g/dL Globulin 3.1 (1.7-4.1) g/dL Albumin/Globulin Ratio 1.4 (1.0-2.8) Lipase 56 (23-300) U/L TSH (0.47-4.68) uIU/mL Free T4 (0.78-2.19) ng/dL 09/02/21 09/02/21 Range/Units 13:23 13:23 WBC (4.5-11.0) X10^3/uL RBC (4.0-5.2) X10^6/uL Hgb (12.0-16.0) g/dL Hct (36-46) % MCV (80-100) fL MCH (26-34) PG MCHC (30-36) % RDW (11.6-14.8) % Plt Count (150-400) X10^3/uL Neut % (Auto) (50-75) % Lymph % (Auto) (25-40) % Crowley % (Auto) (3-14) % Eos % (Auto) (2-4) % Baso % (Auto) (0-2) % Neut # (Auto) (2662-0429) /uL Lymph # (Auto) (0776-5312) /uL Crowley # (Auto) (0-900) /uL Eos # (Auto) (0-450) /uL Baso # (Auto) (0-100) /uL PT 10.9 (10.1-12.7) SECONDS INR 1.0 (0.9-1.3) APTT 28 (26.4-36.2) SECONDS Sodium (137-145) mmol/L Potassium (3.4-5.1) mmol/L Chloride (98-107) mmol/L Carbon Dioxide (22-32) mmol/L BUN (7-17) mg/dL Creatinine (0.52-1.04) mg/dL Estimated GFR (>60) mL/min BUN/Creatinine Ratio (6-22) Glucose (80-110) mg/dL Hemoglobin A1c (4.0-6.0) % Calcium (8.4-10.2) mg/dL Total Bilirubin (0.2-1.3) mg/dL AST (14-36) IU/L ALT (<35) IU/L Alkaline Phosphatase (38-126) U/L Total Creatine Kinase (30-135) U/L CK-MB (CK-2) CK-MB (CK-2) Rel Index Troponin I (0.01-0.034) ng/mL Total Protein (6.3-8.2) g/dL Albumin (3.5-5.0) g/dL Globulin (1.7-4.1) g/dL Albumin/Globulin Ratio (1.0-2.8) Lipase (23-300) U/L TSH 0.18 L (0.47-4.68) uIU/mL Free T4 1.20 (0.78-2.19) ng/dL Point of Care Testing Glucose POC 138 Urine Dip Bedside Urine Glucose Negative Bedside Urine Bilirubin - Negative Bedside Urine Ketone - Negative Urine Specific [place] 1.015 Bedside Urine Occult Blood - Negative Bedside Urine pH 6.0 Bedside Urine Protein - Negative Bedside Urine Urobilinogen - Negative Bedside Urine Nitrite - Negative Bedside Urine Leukocytes - Negative Esterase Point of care testing: Point of Care Testing Glucose POC 138 Urine Dip Bedside Urine Glucose Negative Bedside Urine Bilirubin - Negative Bedside Urine Ketone - Negative Urine Specific [place] 1.015 Bedside Urine Occult Blood - Negative Bedside Urine pH 6.0 Bedside Urine Protein - Negative Bedside Urine Urobilinogen - Negative Bedside Urine Nitrite - Negative Bedside Urine Leukocytes - Negative Esterase Imaging Data Chest x-ray: Radiologist's Impression: [address] [address] XRay Report Signed Patient: Soha Harp MR#: [id number] : 1945 Acct:[id number] Age/Sex: 76 / F Date of Service: 09/02/21 Loc: ED Accession Number: [id number] ?? Procedure: XR chest 1V Ordering Provider: Migel Atwood D.O. PROCEDURE:? XR CHEST 1V ? INDICATIONS:? chest pain ? TECHNIQUE:? One view of the chest was acquired.? ? COMPARISON:? [facility], , CHEST 1 VIEW, 04/23/2008, 11:28.? [facility], CHEST 2 VIEW, 05/15/2015, 11:09. ? FINDINGS:? ? Surgical changes and devices:? None.? ? Lungs and pleura:? An incomplete inspiratory result is noted, causing a crowded appearance to the lung markings.? No focal infiltrates are seen.? No pneumothorax or significant pleural effusions are seen. ? There is elevation of the right hemidiaphragm. ? Mediastinum:? Mediastinal contours appear normal.? Heart size is normal.? ? Bones and chest wall:? No suspicious bony lesions.? Age-appropriate bony degenerative changes are seen, particularly involving the shoulders. ? Overlying soft tissues appear unremarkable.? ? ? IMPRESSION:? ? Limited portable chest examination, without a significant cardiopulmonary abnormality identified.? ? Stable elevation of the right hemidiaphragm can be seen. ? ? Dictated by: Destin Ward M.D. on 09/02/2021 at 11:31 ? ? Approved by: Destin Ward M.D. on 09/02/2021 at 11:33?? ECG Data Attestation: I personally reviewed and interpreted this ECG as follows: Interpretation: Sinus rhythm Ventricular rate is 65 Normal QRS Normal QTC Normal axis No ST T wave changes MDM Narrative Medical decision making narrative: Patient had a unremarkable exam, unremarkable EKG. Normal chest x-ray. Unremarkable labs. Ambulated at her baseline low suspicion for TIA/CVA. She potentially was hypoglycemic this morning as the episode today occurred prior to eating breakfast in she did start to feel better after eating however we cannot be 100% sure this. I did discuss this with her. Patient has an appointment with her primary doctor later this week. Some of the labs that were performed today were initially ordered by her primary doctor. I feel we can hold on further workup for now. Provided reassurance to the patient. Discussed return precautions and follow-up instructions. She expressed understanding and agreement. Discharge Plan Departure Patient Disposition: Home Clinical Impression: Lightheadedness Instructions: DI for Dizziness-Nonvertigo Activity Restrictions/Additional Instructions: Recommend that you continue to take all of your medications as directed. Keep your appointment you scheduled with your primary doctor for later this week. We were able to draw all of your medications except for your lipid/cholesterol. This does need to be a fasting lab draw. Return to the emergency department for any new or worsening symptoms. Prescriptions: No Action (DME) Disabled Parking Permit Qty: 1 0RF Dose Instruction: As directed Rx Instructions: Disabled Parking Permit. Walking limited due to medical condition clobetasol [Temovate] 0.05 % cream 1 applictn Topical BID Qty: 15 0RF atenolol 50 mg tablet 50 mg PO DAILY Qty: 90 3RF lisinopril-hydrochlorothiazide 20-12.5 mg tablet 2 tab PO DAILY Qty: 180 3RF potassium chloride [Klor-Con 8] 8 mEq tablet extended release 16 meq PO DAILY Qty: 180 3RF tramadol 50 mg tablet 100 mg PO Q6HP PRN (Reason: pain) Qty: 720 1RF doxycycline hyclate 50 mg capsule 50 mg PO BID Qty: 180 1RF trazodone 50 mg tablet 50 mg PO DAILY Qty: 90 3RF estradiol-norethindrone acet 0.5-0.1 mg tablet 1 tab PO DAILY MDD 1 Qty: 84 0RF levothyroxine 100 mcg tablet 100 mcg PO DAILY Qty: 90 3RF omeprazole 20 mg capsule,delayed release(DR/EC) 20 mg PO DAILY 0RF celecoxib [Celebrex] 200 mg capsule 200 mg PO DAILY Qty: 90 3RF ictqw-mstllg-deu-[id number] 250 mg-200 mg- 1,500 unit tablet 1 tab PO TID 0RF omega-3 fatty acids [Fish Oil Concentrate] 1,000 mg capsule 1,000 mg PO BID 0RF Label Comments: Hold ketoconazole 2 % shampoo 1 applic topical DIRECTED 0RF Narcan 4 mg/actuation spray,non-aerosol 1 spray Intranasal DIRECTED 0RF Label Comments: JOSE REP ALN Referrals: Gina Portillo DO [Primary Care Provider] -
[2021-09-02 13:02] LABS: Add Manual Diff / Slide Review NO; Basophils Absolute Auto 0 /uL (0-100); Basophils Percent Auto 0.6 % (0-2); Eosinophils Absolute Auto 100 /uL (0-450); Eosinophils Percent Auto 1.5 % (2-4); Hematocrit 39.8 % (36-46); Hemoglobin 13.3 g/dL (12.0-16.0); Lymphocytes Absolute Auto 1400 /uL (1100-4500); Lymphocytes Percent Auto 20.4 % (25-40); Mean Corpuscular HGB Conc 33.4 % (30-36); Mean Corpuscular Hemoglobin 30.7 PG (26-34); Mean Corpuscular Volume 91.7 fL (80-100); Monocytes Absolute Auto 600 /uL (0-900); Monocytes Percent Auto 8.6 % (3-14); Neutrophils Absolute Auto 4600 /uL (1500-7000); Neutrophils Percent Auto 68.9 % (50-75); Platelet Count 261 X10^3/uL (150-400); Red Blood Cell Count 4.33 X10^6/uL (4.0-5.2); Red Cell Distribution Width 14.5 % (11.6-14.8); White Blood Cell Count 6.6 X10^3/uL (4.5-11.0)
[2021-09-02 13:38] LABS: Prothrombin Time 10.9 SECONDS (10.1-12.7)
[2021-09-02 13:41] LABS: PTT Partial Thromboplastin Tim 28 SECONDS (26.4-36.2)
[2021-09-02 13:44] LABS: Alanine Aminotransferase 17 IU/L (<35); Albumin 4.3 g/dL (3.5-5.0); Albumin Globulin Ratio 1.4 (1.0-2.8); Alkaline Phosphatase 63 U/L (38-126); Aspartate Aminotransferase 25 IU/L (14-36); BUN Creatinine Ratio 24.7 (6-22); Bilirubin Total 0.6 mg/dL (0.2-1.3); Blood Urea Nitrogen 22 mg/dL (7-17); Calcium 9.9 mg/dL (8.4-10.2); Carbon Dioxide 29 mmol/L (22-32); Chloride 100 mmol/L (98-107); Creatine Kinase 43 U/L (30-135); Estimated Glomerular Filt Rate > 60.0 mL/min (>60); Globulin 3.1 g/dL (1.7-4.1); Glucose 119 mg/dL (80-110); HEMOLYSIS < 15 (0-50); Lipase 56 U/L (23-300); Potassium 4.4 mmol/L (3.4-5.1); Sodium 138 mmol/L (137-145); Total Protein 7.4 g/dL (6.3-8.2)
[2021-09-02 13:55] LABS: Troponin I < 0.012 ng/mL (0.01-0.034)
[2021-09-02 14:36] LABS: TSH w/ Reflex to FT4 0.18 uIU/mL (0.47-4.68)
== END 2021-09-02 14:23 | disposition home or self-care (01) ==
PROVIDERS: Emergency Provider Emergency Medicine; PCP Family Medicine
DX: R42 Dizziness and giddiness (principal)
CPT/HCPCS: 36415; 71045; 80053; 81003; 82550; 82962; 83036; 83690; 84439; 84443; 84484; 85025; 85610; 85730; 93005; 99283

== ENCOUNTER → 2021-09-24 07:47 | Outpatient (CLI) | payer MEDICARE, BC, SELFPAY ==
[2021-05-13 09:23] VITALS: BMI 34.9
[2021-09-24 08:59] LABS: Cholesterol 226 mg/dL (140-199); HDL Cholesterol 42 mg/dL (40-60); LDL Cholesterol Calculated 121 mg/dL (<100); Triglycerides 316 mg/dL (35-150)
[2021-09-24 09:27] LABS: TSH w/ Reflex to FT4 2.04 uIU/mL (0.47-4.68)
== END ==
PROVIDERS: PCP Family Medicine; Referring Provider Family Medicine; Visit Provider Family Medicine
DX: E03.8 Other specified hypothyroidism (principal); E06.3 Autoimmune thyroiditis; E03.9 Hypothyroidism, unspecified; E78.2 Mixed hyperlipidemia; N18.31 Chronic kidney disease, stage 3a; R73.03 Prediabetes
CPT/HCPCS: 36415; 80061; 84443

== ENCOUNTER → 2021-09-26 11:27 | Outpatient (CLI) | payer MEDICARE, BC, SELFPAY ==
[2021-05-13 09:23] VITALS: BMI 34.9
--- NOTE | 2021-09-26 | DI.MG.S_ITS ---
BILATERAL DIGITAL SCREENING MAMMOGRAM 3D/2D WITH CAD: 09/26/2021 CLINICAL: Routine screening. Comparison is made to exams dated: 08/20/2020 mammogram, 01/28/2019 mammogram, and 01/27/2018 mammogram - [facility]. The tissue of both breasts is heterogeneously dense. This may lower the sensitivity of mammography. Current study was also evaluated with a Computer Aided Detection (CAD) system. There are benign calcifications in both breasts. No significant masses, calcifications, or other findings are seen in either breast. There has been no significant interval change. IMPRESSION: BENIGN There is no mammographic evidence of malignancy. A 1 year screening mammogram is recommended. This exam was interpreted at Station ID: [id number]. NOTE: For mammograms, a report in lay terms will be sent to the patient. Approximately 15% of breast malignancies will not be visualized mammographically. In the management of a palpable breast mass, a negative mammogram must not discourage biopsy of a clinically suspicious lesion. Electronically Signed By: Bill torres/cesar:09/26/2021 15:20:35 copy to: CITLALY BUTLER letter sent: Normal Exam ACR BI-RADS Category 2: Benign Finding(s) 3342F
== END ==
PROVIDERS: PCP Family Medicine; Referring Provider Family Medicine; Visit Provider Family Medicine
DX: Z12.31 Encounter for screening mammogram for malignant neoplasm of breast (principal)
CPT/HCPCS: 77063; 77067

== ENCOUNTER → 2021-12-26 08:03 | Outpatient (CLI) | payer MEDICARE, BC, SELFPAY ==
[2021-05-13 09:23] VITALS: BMI 34.9
[2021-12-26 09:54] LABS: Alanine Aminotransferase 15 IU/L (<35); Albumin 4.5 g/dL (3.5-5.0); Albumin Globulin Ratio 1.3 (1.0-2.8); Alkaline Phosphatase 59 U/L (38-126); Aspartate Aminotransferase 26 IU/L (14-36); Bilirubin Total 0.8 mg/dL (0.2-1.3); Blood Urea Nitrogen 27 mg/dL (7-17); Calcium 9.5 mg/dL (8.4-10.2); Carbon Dioxide 29 mmol/L (22-32); Chloride 102 mmol/L (98-107); Cholesterol 240 mg/dL (140-199); Estimated Glomerular Filt Rate 58.9 mL/min (>60); Globulin 3.6 g/dL (1.7-4.1); Glucose 111 mg/dL (80-110); HDL Cholesterol 41 mg/dL (40-60); HEMOLYSIS 34 (0-50); LDL Cholesterol Calculated 140 mg/dL (<100); Sodium 137 mmol/L (137-145); Total Protein 8.1 g/dL (6.3-8.2); Triglycerides 293 mg/dL (35-150)
== END ==
PROVIDERS: PCP Family Medicine; Referring Provider Family Medicine; Visit Provider Family Medicine
DX: E78.2 Mixed hyperlipidemia (principal)
CPT/HCPCS: 36415; 80053; 80061

== ENCOUNTER → 2022-09-29 13:55 | Outpatient (CLI) | payer MEDICARE, BC, SELFPAY ==
[2021-05-13 09:23] VITALS: BMI 34.9
--- NOTE | 2022-09-29 | DI.MG.S_ITS ---
BILATERAL DIGITAL SCREENING MAMMOGRAM 3D/2D WITH CAD: 09/29/2022 CLINICAL: Routine screening. Comparison is made to exams dated: 09/26/2021 mammogram, 08/20/2020 mammogram, and 01/28/2019 mammogram - [facility]. Both breasts are heterogeneously dense, which may obscure small masses (category c / 51-75% glandular tissue). Current study was also evaluated with a Computer Aided Detection (CAD) system. There are benign calcifications in both breasts. No significant masses, calcifications, or other findings are seen in either breast. There has been no significant interval change. IMPRESSION: BENIGN There is no mammographic evidence of malignancy. A 1 year screening mammogram is recommended. Based on the Tyrer Cuzick model (a risk assessment model) the patient's lifetime risk is 5.1% and her 10 year risk is 5.1%. According to the ACR, ACS, and NCCN guidelines, an annual breast MRI exam along with mammogram is recommended if the patient's lifetime risk is 20% or greater. This exam was interpreted at Station ID: [id number]. NOTE: For mammograms, a report in lay terms will be sent to the patient. Approximately 15% of breast malignancies will not be visualized mammographically. In the management of a palpable breast mass, a negative mammogram must not discourage biopsy of a clinically suspicious lesion. Electronically Signed By: Kip mehta/cesar:09/29/2022 14:35:14 copy to: CITLALY BUTLER letter sent: Normal Exam ACR BI-RADS Category 2: Benign Finding(s) 3342F
== END ==
PROVIDERS: PCP Family Medicine; Referring Provider Family Medicine; Visit Provider Family Medicine
DX: Z12.31 Encounter for screening mammogram for malignant neoplasm of breast (principal)
CPT/HCPCS: 77063; 77067

== ENCOUNTER → 2022-11-10 08:03 | Outpatient (CLI) | payer MEDICARE, BC, SELFPAY ==
[2021-05-13 09:23] VITALS: BMI 34.9
[2022-11-10 08:35] LABS: Hematocrit 42.8 % (36-46); Hemoglobin 14.2 g/dL (12.0-16.0); Mean Corpuscular HGB Conc 33.2 % (30-36); Mean Corpuscular Hemoglobin 31.1 PG (26-34); Mean Corpuscular Volume 93.5 fL (80-100); Platelet Count 261 X10^3/uL (150-400); Red Blood Cell Count 4.58 X10^6/uL (4.0-5.2); Red Cell Distribution Width 14.1 % (11.6-14.8); White Blood Cell Count 4.7 X10^3/uL (4.5-11.0)
[2022-11-10 08:42] LABS: Hemoglobin A1C% w Est Avg Glu 6.3 % (4.0-6.0)
[2022-11-10 09:05] LABS: Alanine Aminotransferase 20 IU/L (<35); Albumin 4.3 g/dL (3.5-5.0); Albumin Globulin Ratio 1.3 (1.0-2.8); Alkaline Phosphatase 65 U/L (38-126); Aspartate Aminotransferase 24 IU/L (14-36); BUN Creatinine Ratio 24.2 (6-22); Blood Urea Nitrogen 22 mg/dL (7-17); Calcium 9.4 mg/dL (8.4-10.2); Carbon Dioxide 27 mmol/L (22-32); Chloride 100 mmol/L (98-107); Cholesterol 244 mg/dL (140-199); Estimated Glomerular Filt Rate > 60 mL/min (>60); Globulin 3.4 g/dL (1.7-4.1); Glucose 133 mg/dL (80-110); HDL Cholesterol 46 mg/dL (40-60); HEMOLYSIS < 15 (0-50); LDL Cholesterol Calculated 141 mg/dL (<100); Potassium 4.2 mmol/L (3.4-5.1); Sodium 137 mmol/L (137-145); Total Protein 7.7 g/dL (6.3-8.2); Triglycerides 286 mg/dL (35-150)
[2022-11-10 09:06] LABS: Creatinine Urine Random 99.8 mg/dL
[2022-11-10 09:07] LABS: Microalbumin Urine Random 2.5 mg/dL (0-1.6)
[2022-11-10 09:31] LABS: TSH w/ Reflex to FT4 3.02 uIU/mL (0.47-4.68)
[2022-11-10 09:52] LABS: Hep C Virus Ab w/Reflex Quant NEGATIVE s/c (NEGATIVE)
== END ==
PROVIDERS: PCP Family Medicine; Referring Provider Family Medicine; Visit Provider Family Medicine
DX: E03.8 Other specified hypothyroidism (principal); R73.03 Prediabetes; E06.3 Autoimmune thyroiditis; E78.2 Mixed hyperlipidemia; I10 Essential (primary) hypertension; N18.31 Chronic kidney disease, stage 3a; Z11.59 Encounter for screening for other viral diseases
CPT/HCPCS: 36415; 80053; 80061; 82043; 82570; 83036; 84443; 85027; 86803

== ENCOUNTER → 2023-05-11 07:59 | Outpatient (CLI) | payer MEDICARE, BC, SELFPAY ==
[2021-05-13 09:23] VITALS: BMI 34.9
[2023-05-11 08:51] LABS: BUN Creatinine Ratio 26.6 (6-22); Blood Urea Nitrogen 21 mg/dL (7-17); Calcium 9.4 mg/dL (8.4-10.2); Carbon Dioxide 28 mmol/L (22-32); Chloride 101 mmol/L (98-107); Estimated Glomerular Filt Rate > 60 mL/min (>60); Glucose 118 mg/dL (80-110); HEMOLYSIS 18 (0-50); Potassium 4.3 mmol/L (3.4-5.1); Sodium 137 mmol/L (137-145)
[2023-05-13 07:43] LABS: Labcorp Hemoglobin (Hb) A1c 6.2 % (4.8-5.6)
== END ==
PROVIDERS: PCP Family Medicine; Referring Provider Family Medicine; Visit Provider Family Medicine
DX: E78.2 Mixed hyperlipidemia (principal); R73.03 Prediabetes
CPT/HCPCS: 36415; 80048; 83036

== ENCOUNTER → 2023-09-30 13:57 | Outpatient (CLI) | payer MEDICARE, BC, SELFPAY ==
[2021-05-13 09:23] VITALS: BMI 34.9
--- NOTE | 2023-09-30 13:59 | DI.MG.S_ITS ---
BILATERAL DIGITAL SCREENING MAMMOGRAM 3D/2D WITH CAD: 09/30/2023 CLINICAL: Routine screening. Comparison is made to exams dated: 09/29/2022 mammogram, 09/26/2021 mammogram, and 08/20/2020 mammogram - [facility]. Both breasts are heterogeneously dense, which may obscure small masses (category c / 51-75% glandular tissue). Current study was also evaluated with a Computer Aided Detection (CAD) system. There are benign calcifications in both breasts. No significant masses, calcifications, or other findings are seen in either breast. There has been no significant interval change. IMPRESSION: BENIGN There is no mammographic evidence of malignancy. A 1 year screening mammogram is recommended. Based on the Tyrer Cuzick model (a risk assessment model) the patient's lifetime risk is 4.7% and her 10 year risk is 0.0%. According to the ACR, ACS, and NCCN guidelines, an annual breast MRI exam along with mammogram is recommended if the patient's lifetime risk is 20% or greater. This exam was interpreted at Station ID: [id number]. NOTE: For mammograms, a report in lay terms will be sent to the patient. Approximately 15% of breast malignancies will not be visualized mammographically. In the management of a palpable breast mass, a negative mammogram must not discourage biopsy of a clinically suspicious lesion. Electronically Signed By: Kip mehta/cesar:09/30/2023 14:23:31 copy to: CITLALY BUTLER letter sent: Normal Exam ACR BI-RADS Category 2: Benign Finding(s) 3342F
== END ==
PROVIDERS: PCP Family Medicine; Referring Provider Family Medicine; Visit Provider Family Medicine
DX: Z12.31 Encounter for screening mammogram for malignant neoplasm of breast (principal)
CPT/HCPCS: 77063; 77067

== ENCOUNTER → 2024-01-11 08:08 | Outpatient (CLI) | payer MEDICARE, BC, SELFPAY ==
[2021-05-13 09:23] VITALS: BMI 34.9
[2024-01-11 08:59] LABS: Hemoglobin A1C% w Est Avg Glu 6.2 % (4.0-6.0)
[2024-01-11 09:06] LABS: BUN Creatinine Ratio 26.1 (6-22); Blood Urea Nitrogen 23 mg/dL (7-17); Calcium 9.6 mg/dL (8.4-10.2); Carbon Dioxide 26 mmol/L (22-32); Chloride 103 mmol/L (98-107); Cholesterol 234 mg/dL (140-199); Estimated Glomerular Filt Rate > 60 mL/min (>60); Glucose 132 mg/dL (80-110); HDL Cholesterol 44 mg/dL (40-60); HEMOLYSIS < 15 (0-50); LDL Cholesterol Calculated 132 mg/dL (<100); Potassium 4.2 mmol/L (3.4-5.1); Sodium 137 mmol/L (137-145); Triglycerides 292 mg/dL (35-150)
[2024-01-11 09:10] LABS: High Sensitivity CRP - Cardiac 4.4 mg/L (1.0-3.0)
[2024-01-11 09:16] LABS: NT-proBNP (BNP-Adult 18+) 201 pg/mL (<450)
[2024-01-11 09:38] LABS: Thyroid Stimulating Hormone 2.45 uIU/mL (0.47-4.68)
== END ==
LOC: LAB 08:11
PROVIDERS: PCP Family Medicine; Referring Provider Family Medicine; Visit Provider Family Medicine
DX: R73.03 Prediabetes (principal); I10 Essential (primary) hypertension; E03.8 Other specified hypothyroidism; E06.3 Autoimmune thyroiditis; E78.2 Mixed hyperlipidemia; Z82.49 Family history of ischemic heart disease and other diseases of the circulatory system; N18.31 Chronic kidney disease, stage 3a
CPT/HCPCS: 36415; 80048; 80061; 83036; 83880; 84443; 86140

== ENCOUNTER → 2024-10-02 13:51 | Outpatient (CLI) | payer MEDICARE, BC, SELFPAY ==
[2021-05-13 09:23] VITALS: BMI 34.9
--- NOTE | 2024-10-02 13:52 | DI.MG.S_ITS ---
BILATERAL DIGITAL SCREENING MAMMOGRAM 3D/2D WITH CAD: 10/02/2024 CLINICAL: Routine screening. Comparison is made to exams dated: 09/30/2023 mammogram, 09/29/2022 mammogram, and 09/26/20[address] - [facility]. The breasts are heterogeneously dense, which may obscure small masses (category c / 51-75% glandular tissue). Current study was also evaluated with a Computer Aided Detection (CAD) system. There are benign calcifications in both breasts. No significant masses, calcifications, or other findings are seen in either breast. There has been no significant interval change. IMPRESSION: BENIGN There is no mammographic evidence of malignancy. A 1 year screening mammogram is recommended. Based on the Tyrer Cuzick model (a risk assessment model) the patient's lifetime risk is 4.2% and her 10 year risk is 0.0%. According to the ACR, ACS, and NCCN guidelines, an annual breast MRI exam along with mammogram is recommended if the patient's lifetime risk is 20% or greater. This exam was interpreted at Station ID: [id number]. NOTE: For mammograms, a report in lay terms will be sent to the patient. Approximately 15% of breast malignancies will not be visualized mammographically. In the management of a palpable breast mass, a negative mammogram must not discourage biopsy of a clinically suspicious lesion. Electronically Signed By: Bill torres/cesar:10/03/2024 07:50:57 copy to: CITLALY BUTLER letter sent: Normal Exam ACR BI-RADS Category 2: Benign
== END ==
PROVIDERS: PCP Family Medicine; Referring Provider Family Medicine; Visit Provider Family Medicine
DX: Z12.31 Encounter for screening mammogram for malignant neoplasm of breast (principal); R92.333 Mammographic heterogeneous density, bilateral breasts
CPT/HCPCS: 77063; 77067

== ENCOUNTER → 2025-02-08 13:35 | Outpatient (CLI) | payer MEDICARE, BC, SELFPAY ==
[2021-05-13 09:23] VITALS: BMI 34.9
[2025-02-08 15:42] LABS: Alanine Aminotransferase 20 IU/L (<35); Albumin 4.6 g/dL (3.5-5.0); Albumin Globulin Ratio 1.4 (1.0-2.8); Alkaline Phosphatase 69 U/L (38-126); Aspartate Aminotransferase 28 IU/L (14-36); Bilirubin Total 0.9 mg/dL (0.2-1.3); Blood Urea Nitrogen 23 mg/dL (7-17); Calcium 9.4 mg/dL (8.4-10.2); Carbon Dioxide 24 mmol/L (22-32); Chloride 100 mmol/L (98-107); Estimated Glomerular Filt Rate > 60 mL/min (>60); Globulin 3.2 g/dL (1.7-4.1); Glucose 130 mg/dL (70-99); HEMOLYSIS 16 (0-50); Potassium 4.6 mmol/L (3.4-5.1); Sodium 137 mmol/L (137-145); Total Protein 7.8 g/dL (6.3-8.2)
[2025-02-08 16:15] LABS: TSH w/ Reflex to FT4 0.11 uIU/mL (0.47-4.68)
[2025-02-08 21:04] LABS: Free T4, Direct Thyroxine 1.47 ng/dL (0.78-2.19)
== END ==
PROVIDERS: PCP Family Medicine; Referring Provider Family Medicine; Visit Provider Family Medicine
DX: E03.9 Hypothyroidism, unspecified (principal); I12.9 Hypertensive chronic kidney disease with stage 1 through stage 4 chronic kidney disease, or unspecified chronic kidney disease; N18.31 Chronic kidney disease, stage 3a; E66.9 Obesity, unspecified; E88.810 Metabolic syndrome
CPT/HCPCS: 36415; 80053; 83036; 84439; 84443; 86140

== ENCOUNTER → 2025-10-04 14:10 | Outpatient (CLI) | payer MEDICARE, BC, SELFPAY ==
[2021-05-13 09:23] VITALS: BMI 34.9
--- NOTE | 2025-10-04 14:11 | DI.MG.S_ITS ---
MM screening mammo BI: 10/04/2025. BI-RADS: 2 CLINICAL: 80-year old female for bilateral screening mammogram. Tyrer-Cuzick lifetime risk of 3.0%. No personal or first-degree family history of breast cancer. PRIOR EXAMS 10/02/2024, 09/30/2023, 09/29/2022, 09/26/2021. MAMMOGRAPHY TECHNIQUE: 2D and 3D (tomosynthesis) digital mammographic views obtained, with additional images as needed for full coverage. Current study was also evaluated with a Computer Aided Detection (CAD) system. DENSITY C. The breasts are heterogeneously dense, which may obscure small masses. MAMMOGRAPHY FINDINGS Bilateral: Benign-appearing calcifications noted. There are no suspicious masses, calcifications, or other findings in the breast. IMPRESSION: * No evidence of malignancy with benign findings. RECOMMENDATIONS Bilateral * Annual screening mammography. OVERALL ASSESSMENT CATEGORY BI-RADS-2: Benign. The [employer] recommends annual screening mammography beginning at age 40 for women with average risk of breast cancer. ELECTRONICALLY SIGNED: Kip Ovalle M.D. on 10/05/2025 at 07:59:56 AM PT Interpreting Station ID: [id number]
== END ==
LOC: MAMMO 14:11
PROVIDERS: PCP Family Medicine; Referring Provider Family Medicine; Visit Provider Family Medicine
DX: Z12.31 Encounter for screening mammogram for malignant neoplasm of breast (principal); R92.333 Mammographic heterogeneous density, bilateral breasts
CPT/HCPCS: 77063; 77067

== ENCOUNTER → 2025-10-15 07:59 | Outpatient (CLI) | payer MEDICARE, BC, SELFPAY ==
[2021-05-13 09:23] VITALS: BMI 34.9
[2025-10-15 08:56] LABS: Appearance Urine UA CLEAR; Bilirubin Urine UA NEGATIVE (NEGATIVE); Color Urine UA YELLOW; Glucose Urine UA NEGATIVE (Negative); Ketones Urine UA NEGATIVE (NEGATIVE); Leukocyte Esterase Urine UA NEGATIVE (NEGATIVE); Nitrite Urine UA NEGATIVE (Negative); Occult Blood Urine UA TRACE-INTACT (Negative); Protein Urine UA NEGATIVE (Negative); Specific Gravity Urine UA 1.020 (1.000-1.035); Urobilinogen Urine UA 0.2 E.U./dL (0.2)
[2025-10-15 08:57] LABS: pH Urine UA 6.0 (4.5-8.0)
[2025-10-15 09:04] LABS: Culture Indicated Urine Cult Not Indicated
[2025-10-15 09:06] LABS: Add Manual Diff / Slide Review NO; Hematocrit 41.4 % (36-46); Hemoglobin 13.9 g/dL (12.0-16.0); Lymphocytes Absolute Auto 1800 /uL (1100-4500); Mean Corpuscular HGB Conc 33.5 % (30-36); Mean Corpuscular Hemoglobin 31.6 PG (26-34); Mean Corpuscular Volume 94.5 fL (80-100); Platelet Count 271 X10^3/uL (150-400)
[2025-10-15 09:23] LABS: Hemoglobin A1C% w Est Avg Glu 6.2 % (4.0-6.0)
[2025-10-15 09:31] LABS: Alanine Aminotransferase 18 IU/L (<35); Albumin 4.6 g/dL (3.5-5.0); Albumin Globulin Ratio 1.6 (1.0-2.8); Alkaline Phosphatase 66 U/L (38-126); Blood Urea Nitrogen 22 mg/dL (7-17); Calcium 9.7 mg/dL (8.4-10.2); Carbon Dioxide 25 mmol/L (22-32); Chloride 101 mmol/L (98-107); Cholesterol 240 mg/dL (140-199); Estimated Glomerular Filt Rate > 60 mL/min (>60); Globulin 2.9 g/dL (1.7-4.1); Glucose 146 mg/dL (70-99); HDL Cholesterol 46 mg/dL (40-60); HEMOLYSIS < 15 (0-50); Potassium 4.3 mmol/L (3.4-5.1); Sodium 138 mmol/L (137-145); Total Protein 7.5 g/dL (6.3-8.2); Triglycerides 368 mg/dL (35-150)
[2025-10-15 10:00] LABS: TSH w/ Reflex to FT4 3.28 uIU/mL (0.47-4.68)
== END ==
PROVIDERS: PCP Family Medicine; Referring Provider Family Medicine; Visit Provider Family Medicine
DX: Z01.818 Encounter for other preprocedural examination (principal); R73.03 Prediabetes; E66.01 Morbid (severe) obesity due to excess calories; E03.8 Other specified hypothyroidism; Z68.36 Body mass index [BMI] 36.0-36.9, adult; E78.2 Mixed hyperlipidemia; M17.11 Unilateral primary osteoarthritis, right knee; E06.3 Autoimmune thyroiditis; N39.0 Urinary tract infection, site not specified
CPT/HCPCS: 36415; 80053; 80061; 81001; 83036; 84443; 85025